=== PATIENT | female | born 1980 | race Caucasian/White ===

== ENCOUNTER 2021-01-09 10:29 | Outpatient (REF) | payer MEDICARE, MEDICAID, SELFPAY ==
--- NOTE | ~2021-01-09 | XR_ITS ---
EXAMINATION: XR CHEST CLINICAL INFORMATION: Chest pain. COMPARISON: Chest 05/25/2019 TECHNIQUE: 2 views of chest FINDINGS: The lungs are well-expanded and clear of acute process. The heart size and pulmonary vascularity is normal. There is mild dextroscoliosis of dorsal spine. No lytic process seen. XR/XR chest 2V IMPRESSION: Unremarkable chest exam.
[2021-01-09 13:08] LABS: Influenza A PCR NEGATIVE (Negative); Influenza B PCR NEGATIVE (Negative); Resp Syncy Virus RNA Qual PCR NEGATIVE (Negative); SARS COV2 PCR INHOUSE NEGATIVE (Negative)
== END 2021-01-09 10:30 | disposition home or self-care (01) ==
LOC: HO.LAB 10:29
PROVIDERS: Visit Provider Nurse Practitioner Family
DX: R05 Cough (principal); R07.89 Other chest pain; F17.200 Nicotine dependence, unspecified, uncomplicated; Z20.822 Contact with and (suspected) exposure to COVID-19
CPT/HCPCS: 0241U; 36415; 71046

== ENCOUNTER 2021-01-09 10:32 | Outpatient (REF) | payer MEDICARE, MEDICAID, SELFPAY ==
[2021-01-09 13:50] LABS: MANUAL DIFF FLAG NO
[2021-01-09 13:53] LABS: Basophils Percent Auto 0.3 % (0-2); Eosinophils Absolute Auto 0.1 X10*3/uL (0.0-0.4); Eosinophils Percent Auto 0.9 % (0-4); Hematocrit 42.1 % (37-47); Hemoglobin 13.8 g/dl (12.0-16.0); Imm Gran Abs Auto 0.04 X10*3/uL (0.00-0.03); Imm Gran Pct Auto 0.4 % (0.0-0.4); Lymphocytes Absolute Auto 2.3 X10*3/uL (1.2-4.9); Lymphocytes Percent Auto 25.7 % (20-40); Mean Corpuscular HGB Conc 32.8 g/dl (31.0-35.0); Mean Corpuscular Hemoglobin 30.1 pg (27.0-33.0); Mean Corpuscular Volume 91.9 fL (80-98); Monocytes Absolute Auto 0.4 X10*3/uL (0.1-1.2); Monocytes Percent Auto 4.7 % (2-11); Neutrophils Absolute Auto 6.1 X10*3/uL (2.0-8.3); Platelet Count 157 X10*3/uL (160-400); Red Blood Count 4.58 X10*6/uL (4.20-5.50); Red Cell Distribution Width 12.6 % (11.0-16.0); White Blood Count 8.9 X10*3/uL (4.8-10.8)
[2021-01-09 14:18] LABS: Alanine Aminotransferase 44 U/L (0-31); Albumin Level 4.5 g/dL (3.5-5.0); Alkaline Phosphatase 88 U/L (39-117); Anion Gap 14 (12-20); Aspartate Amino Transferase 26 U/L (5-31); Bilirubin Total 0.5 mg/dL (0.0-1.0); Blood Urea Nitrogen 11 mg/dL (9-16); Calcium 9.3 mg/dL (8.4-10.2); Carbon Dioxide 28 mmol/L (22-29); Chloride 101 mmol/L (96-108); Estimated Glomerular Filt Rate > 60; Glucose Random 89 mg/dL (60-115); Potassium 4.1 mmol/L (3.3-5.1); Sodium 139 mmol/L (135-145); Total Protein 7.3 g/dL (6.5-8.0)
[2021-01-10 12:31] LABS: LDL Cholesterol Direct 97 mg/dL (<100)
== END 2021-01-09 10:33 | disposition home or self-care (01) ==
LOC: HO.HMGCLDS 10:32
PROVIDERS: PCP Internal Medicine; Visit Provider Nurse Practitioner Family
DX: E66.01 Morbid (severe) obesity due to excess calories (principal); I10 Essential (primary) hypertension; R05 Cough; Z20.822 Contact with and (suspected) exposure to COVID-19
CPT/HCPCS: 36415; 80053; 83721; 85025

== ENCOUNTER 2021-05-11 10:20 | Outpatient (REF) | payer MEDICARE, MEDICAID, SELFPAY ==
--- NOTE | ~2021-05-11 | XR_ITS ---
EXAMINATION: XR CHEST CLINICAL INFORMATION: Covid 19 COMPARISON: Chest radiograph from 01/09/2019 TECHNIQUE: 2 views of the chest were obtained. FINDINGS: No focal consolidation. No pneumothorax. Trachea is midline. Cardiomediastinal silhouette is not enlarged. No large pleural effusions. Mild dextrocurvature of the thoracic spine with multilevel degenerative changes. Soft tissues are unremarkable. XR/XR chest 2V IMPRESSION: No acute cardiopulmonary process.
== END 2021-05-11 10:21 | disposition home or self-care (01) ==
LOC: HO.HMGCX 10:20
PROVIDERS: PCP Internal Medicine; Visit Provider Internal Medicine
DX: Z13.89 Encounter for screening for other disorder (principal)
CPT/HCPCS: 71046

== ENCOUNTER 2021-06-26 10:35 | Outpatient (REF) | payer MEDICARE, MEDICAID, SELFPAY ==
[2021-06-26 11:25] LABS: MANUAL DIFF FLAG NO
[2021-06-26 11:32] LABS: Basophils Percent Auto 0.4 % (0-2); Eosinophils Absolute Auto 0.1 X10*3/uL (0.0-0.4); Eosinophils Percent Auto 1.4 % (0-4); Hematocrit 41.7 % (37.0-47.0); Hemoglobin 14.1 g/dl (12.0-16.0); Imm Gran Abs Auto 0.03 X10*3/uL (0.00-0.03); Imm Gran Pct Auto 0.4 % (0.0-0.4); Lymphocytes Absolute Auto 2.6 X10*3/uL (1.2-4.9); Lymphocytes Percent Auto 33.7 % (20-40); Mean Corpuscular HGB Conc 33.8 g/dl (31.0-35.0); Mean Corpuscular Hemoglobin 30.6 pg (27.0-33.0); Mean Corpuscular Volume 90.5 fL (80.0-98.0); Mean Platelet Volume 11.9 fL (9.4-12.3); Monocytes Absolute Auto 0.5 X10*3/uL (0.1-1.2); Monocytes Percent Auto 6.3 % (2-11); Neutrophils Percent Auto 57.8 % (45-73); Platelet Count 160 X10*3/uL (160-400); Red Blood Count 4.61 X10*6/uL (4.20-5.50); White Blood Count 7.6 X10*3/uL (4.8-10.8)
[2021-06-26 12:29] LABS: Alanine Aminotransferase 47 U/L (0-31); Albumin Level 4.6 g/dL (3.5-5.0); Alkaline Phosphatase 84 U/L (39-117); Anion Gap 13 (12-20); Aspartate Amino Transferase 32 U/L (5-31); Bilirubin Total 0.4 mg/dL (0.0-1.0); Blood Urea Nitrogen 13 mg/dL (9-16); Calcium 9.5 mg/dL (8.4-10.2); Carbon Dioxide 28 mmol/L (22-29); Chloride 102 mmol/L (96-108); Cholesterol 170 mg/dL; Estimated Glomerular Filt Rate > 60; Glucose Random 89 mg/dL (60-115); HDL Cholesterol 42 mg/dL; LDL Cholesterol Calculated 100 mg/dl; Potassium 4.2 mmol/L (3.3-5.1); Sodium 139 mmol/L (135-145); Total Protein 7.2 g/dL (6.5-8.0); Triglycerides 142 mg/dL
== END 2021-06-26 10:36 | disposition home or self-care (01) ==
LOC: HO.HMGCLDS 10:35
PROVIDERS: PCP Internal Medicine; Visit Provider Internal Medicine
DX: I10 Essential (primary) hypertension (principal); E66.01 Morbid (severe) obesity due to excess calories; U07.1 COVID-19; J12.82 Pneumonia due to coronavirus disease 2019; F17.200 Nicotine dependence, unspecified, uncomplicated
CPT/HCPCS: 36415; 80053; 80061; 85025

== ENCOUNTER 2021-12-07 13:38 | Outpatient (REF) | payer MEDICARE, MEDICAID, SELFPAY ==
--- NOTE | ~2021-12-07 | XR_ITS ---
EXAMINATION: XR CHEST CLINICAL INFORMATION: Other specified signs and symptoms COMPARISON: Chest x-ray 05/11/2021 TECHNIQUE: 2 views of the chest were obtained. FINDINGS: Normal heart size. Adequate expansion of the lungs. No focal consolidation. No pleural effusion or pneumothorax. No acute osseous abnormality. Multilevel degenerative changes of the spine. XR/XR chest 2V IMPRESSION: No acute disease within the chest. No focal consolidation.
== END 2021-12-07 13:39 | disposition home or self-care (01) ==
LOC: HO.HMGCX 13:38
PROVIDERS: Visit Provider Internal Medicine
DX: R09.89 Other specified symptoms and signs involving the circulatory and respiratory systems (principal)
CPT/HCPCS: 71046

== ENCOUNTER 2022-01-10 10:45 | Outpatient (REF) | payer MEDICARE, MEDICAID, SELFPAY ==
[2022-01-10 14:29] LABS: B Type Natriuretic Peptide < 10 pg/mL (<100)
[2022-01-10 14:37] LABS: D Dimer High Sensitivity < 150 NG/ML
[2022-01-10 14:43] LABS: Erythrocyte Sedimentation Rate 10 MM/HR (0-20)
[2022-01-12 14:46] LABS: IgA 209 mg/dL (47-310); IgG 982 mg/dL (600-1640); IgM 206 mg/dL (50-300)
[2022-02-04 08:40] LABS: SARS COV2 IgG Negative
== END 2022-01-10 10:46 | disposition home or self-care (01) ==
LOC: HO.LAB 10:45
PROVIDERS: PCP Internal Medicine; Visit Provider Hospitalist
DX: J45.50 Severe persistent asthma, uncomplicated (principal); U09.9 Post COVID-19 condition, unspecified; J42 Unspecified chronic bronchitis; F17.200 Nicotine dependence, unspecified, uncomplicated; Z01.84 Encounter for antibody response examination
CPT/HCPCS: 36415; 82784; 82785; 83880; 85379; 85652; 86003; 86769; 99202

== ENCOUNTER 2022-02-06 10:07 | Outpatient (REF) | payer MEDICARE, MEDICAID, SELFPAY ==
--- NOTE | ~2022-02-06 | XR_ITS ---
EXAMINATION: XR CHEST CLINICAL INFORMATION: On suspected chronic bronchitis COMPARISON: Chest 12/07/2021 TECHNIQUE: 2 views of the chest were obtained. FINDINGS: The lungs are well-expanded and clear. There is no pleural effusion. The heart size and pulmonary vascularity is normal. There is mild spondylosis dorsal spine. XR/XR chest 2V IMPRESSION: No acute cardiopulmonary process seen.
== END 2022-02-06 10:08 | disposition home or self-care (01) ==
LOC: HO.XRAY 10:07
PROVIDERS: PCP Internal Medicine; Visit Provider Hospitalist
DX: J45.50 Severe persistent asthma, uncomplicated (principal); J42 Unspecified chronic bronchitis; U09.9 Post COVID-19 condition, unspecified; F17.200 Nicotine dependence, unspecified, uncomplicated; Z71.6 Tobacco abuse counseling
CPT/HCPCS: 71046; 99212

== ENCOUNTER 2022-03-25 09:36 | Outpatient (REF) | payer MEDICARE, MEDICAID, SELFPAY ==
[2022-03-25 11:28] LABS: MANUAL DIFF FLAG NO
[2022-03-25 11:35] LABS: Basophils Percent Auto 0.3 % (0-2); Eosinophils Absolute Auto 0.1 X10*3/uL (0.0-0.4); Eosinophils Percent Auto 1.4 % (0-4); Hematocrit 42.4 % (37.0-47.0); Hemoglobin 14.2 g/dl (12.0-16.0); Imm Gran Abs Auto 0.04 X10*3/uL (0.00-0.03); Imm Gran Pct Auto 0.5 % (0.0-0.4); Lymphocytes Absolute Auto 2.5 X10*3/uL (1.2-4.9); Lymphocytes Percent Auto 30.9 % (20-40); Mean Corpuscular HGB Conc 33.5 g/dl (31.0-35.0); Mean Corpuscular Hemoglobin 30.7 pg (27.0-33.0); Mean Corpuscular Volume 91.8 fL (80.0-98.0); Mean Platelet Volume 11.7 fL (9.4-12.3); Monocytes Absolute Auto 0.4 X10*3/uL (0.1-1.2); Monocytes Percent Auto 5.3 % (2-11); Neutrophils Absolute Auto 4.9 x10*3/uL (2.0-8.3); Neutrophils Percent Auto 61.6 % (45-73); Platelet Count 165 X10*3/uL (160-400); Red Blood Count 4.62 X10*6/uL (4.20-5.50); Red Cell Distribution Width 12.5 % (11.0-16.0); White Blood Count 7.9 X10*3/uL (4.8-10.8)
[2022-03-25 11:37] LABS: Hematocrit 42.6 % (37.0-47.0); Hemoglobin 14.2 g/dl (12.0-16.0); Mean Corpuscular HGB Conc 33.3 g/dl (31.0-35.0); Mean Corpuscular Hemoglobin 30.5 pg (27.0-33.0); Mean Corpuscular Volume 91.4 fL (80.0-98.0); Mean Platelet Volume 12.3 fL (9.4-12.3); Platelet Count 151 X10*3/uL (160-400); Red Blood Count 4.66 X10*6/uL (4.20-5.50); Red Cell Distribution Width 12.3 % (11.0-16.0); White Blood Count 7.8 X10*3/uL (4.8-10.8)
[2022-03-25 12:12] LABS: Alanine Aminotransferase 71 U/L (0-31); Albumin Level 4.6 g/dL (3.5-5.0); Alkaline Phosphatase 84 U/L (39-117); Anion Gap 14 (12-20); Aspartate Amino Transferase 42 U/L (5-31); Bilirubin Total 0.5 mg/dL (0.0-1.0); Blood Urea Nitrogen 12 mg/dL (9-16); Calcium 9.4 mg/dL (8.4-10.2); Carbon Dioxide 27 mmol/L (22-29); Chloride 102 mmol/L (96-108); Cholesterol 185 mg/dL; Estimated Glomerular Filt Rate > 60; Glucose Fasting 99 mg/dL (60-99); HDL Cholesterol 45 mg/dL; LDL Cholesterol Calculated 111 mg/dl; Potassium 4.2 mmol/L (3.3-5.1); Sodium 139 mmol/L (135-145); Total Protein 7.4 g/dL (6.5-8.0); Triglycerides 149 mg/dL
[2022-03-25 12:14] LABS: Ferritin 369 ng/mL (10-122); Insulin 27 uU/mL (2-29); Vitamin D 25-OH Total 28.5 ng/mL (>30)
[2022-03-25 12:19] LABS: Vitamin B12 518 pg/mL (200-900)
[2022-03-25 12:26] LABS: Estimated Average Glucose 111 mg/dL; Hemoglobin A1c % 5.5 %
[2022-03-25 12:27] LABS: Alanine Aminotransferase 70 U/L (0-31); Albumin Level 4.6 g/dL (3.5-5.0); Alkaline Phosphatase 84 U/L (39-117); Anion Gap 13 (12-20); Aspartate Amino Transferase 42 U/L (5-31); Bilirubin Total 0.5 mg/dL (0.0-1.0); Blood Urea Nitrogen 13 mg/dL (9-16); Calcium 9.4 mg/dL (8.4-10.2); Carbon Dioxide 28 mmol/L (22-29); Chloride 102 mmol/L (96-108); Estimated Glomerular Filt Rate > 60; Glucose Random 99 mg/dL (60-115); Iron 137 mcg/dL (30-160); Percent Iron Saturation 43 % (15-50); Potassium 4.1 mmol/L (3.3-5.1); Sodium 139 mmol/L (135-145); Total Iron Binding Capacity 320 mcg/dL (228-428); Total Protein 7.4 g/dL (6.5-8.0); Unsaturated Iron Binding 183 ug/dL
[2022-03-30 19:46] LABS: Testosterone, Free 9.3 pg/mL (0.1-6.4); Testosterone, Total 61 ng/dL (2-45)
== END 2022-03-25 09:37 | disposition home or self-care (01) ==
LOC: HO.HMGCLDS 09:36
PROVIDERS: PCP Internal Medicine; Visit Provider Internal Medicine
DX: Z00.01 Encounter for general adult medical examination with abnormal findings (principal); E66.01 Morbid (severe) obesity due to excess calories; U09.9 Post COVID-19 condition, unspecified; F33.2 Major depressive disorder, recurrent severe without psychotic features; F17.200 Nicotine dependence, unspecified, uncomplicated
CPT/HCPCS: 36415; 80053; 80061; 82306; 82607; 82728; 83036; 83525; 83540; 84402; 84403; 84443; 85025; 85027

== ENCOUNTER 2022-05-22 10:41 | Outpatient (REF) | payer MEDICARE, MEDICAID, SELFPAY ==
[2022-05-22 14:52] LABS: Alanine Aminotransferase 59 U/L (0-31); Albumin Level 4.6 g/dL (3.5-5.0); Alkaline Phosphatase 89 U/L (39-117); Anion Gap 15 (12-20); Aspartate Amino Transferase 33 U/L (5-31); Bilirubin Total < 0.2 mg/dL (0.0-1.0); Blood Urea Nitrogen 15 mg/dL (9-16); Calcium 9.3 mg/dL (8.4-10.2); Carbon Dioxide 26 mmol/L (22-29); Chloride 101 mmol/L (96-108); Estimated Glomerular Filt Rate > 60; Glucose Random 77 mg/dL (60-115); Sodium 138 mmol/L (135-145); Total Protein 7.2 g/dL (6.5-8.0)
[2022-05-22 15:04] LABS: Ferritin 238 ng/mL (10-122)
== END 2022-05-22 10:42 | disposition home or self-care (01) ==
LOC: HO.HMGCLDS 10:41
PROVIDERS: PCP Internal Medicine; Visit Provider Internal Medicine
DX: R79.89 Other specified abnormal findings of blood chemistry (principal)
CPT/HCPCS: 36415; 80053; 82728

== ENCOUNTER 2022-06-06 13:55 | Outpatient (REF) | payer MEDICARE, MEDICAID, SELFPAY ==
--- NOTE | ~2022-06-06 | XR_ITS ---
EXAMINATION: XR CHEST CLINICAL INFORMATION: Chest pain COMPARISON: Chest 02/06/2022 TECHNIQUE: 2 views of the chest were obtained. FINDINGS: The lungs are well expanded with small density seen in the lingular segment overlying the left ninth posterior rib question small focal infiltrate, nodule versus artifact. Rest lungs are clear. The heart size and pulmonary vascularity is normal. No gross bony abnormality seen except for mild dorsal spondylosis spondylosis. XR/XR chest 2V IMPRESSION: Small focal density in the lingula question artifact, infiltrate versus nodule. It is new compared to 02/06/2022.
== END 2022-06-06 13:56 | disposition home or self-care (01) ==
LOC: HO.XRAY 13:55
PROVIDERS: PCP Internal Medicine; Visit Provider Hospitalist
DX: J45.50 Severe persistent asthma, uncomplicated (principal); J42 Unspecified chronic bronchitis; R09.1 Pleurisy; J18.0 Bronchopneumonia, unspecified organism; R07.9 Chest pain, unspecified; U09.9 Post COVID-19 condition, unspecified; F17.210 Nicotine dependence, cigarettes, uncomplicated
CPT/HCPCS: 71046; 99212

== ENCOUNTER → 2022-07-24 10:01 | Outpatient (BNVA) | payer MEDICARE, MEDICAID, SELFPAY | PROVIDERS: PCP Internal Medicine; Visit Provider Hospitalist | DX: J45.50 Severe persistent asthma, uncomplicated (principal); J42 Unspecified chronic bronchitis; U09.9 Post COVID-19 condition, unspecified; R93.89 Abnormal findings on diagnostic imaging of other specified body structures; F17.210 Nicotine dependence, cigarettes, uncomplicated | CPT/HCPCS: 99212 ==

== ENCOUNTER 2022-08-22 12:43 | Outpatient (REF) | payer MEDICARE, MEDICAID, SELFPAY ==
--- NOTE | ~2022-08-22 | CT_ITS ---
EXAMINATION: CT CHEST WITHOUT CONTRAST CLINICAL INFORMATION: Chest pain. COMPARISON: None. TECHNIQUE: Multidetector volumetric CT imaging of the chest was done. Axial MIP volume rendering provided. Sagittal and coronal reformatted images were obtained. This CT examination was performed using dose optimization techniques as appropriate, variously including the following: *Automated exposure control *Adjustment of mA and/or kV according to patient size (this includes techniques or standardized protocols for targeted exams where dose is matched to indication/reason for exam; i.e. extremities or head) *Use of iterative reconstruction technique DLP: 726 mGy-cm FINDINGS: EDUCATION CONSULTANT: Unremarkable. LUNGS: The lungs are clear with no evidence of inflammation or nodules. MEDIASTINUM: The mediastinum is unremarkable. Small right anterior paracardiac lymph nodes are present. CORONARY ARTERY CALCIFICATION: None visualized on this study. PLEURA: There is no pleural effusion. No pleural mass or thickening. AXILLA: No lymphadenopathy. UPPER ABDOMEN: Unremarkable. OSSEOUS STRUCTURES: Unremarkable. CT/CT chest wo IV con IMPRESSION: Unremarkable examination. A cause for the patient's chest pain has not been found. Fleischner guidelines were followed.
== END 2022-08-22 12:44 | disposition home or self-care (01) ==
LOC: HO.CT 12:43
PROVIDERS: PCP Internal Medicine; Visit Provider Hospitalist
DX: R07.9 Chest pain, unspecified (principal)
CPT/HCPCS: 71250

== ENCOUNTER 2022-10-08 11:55 | Outpatient (REF) | payer MEDICARE, MEDICAID, SELFPAY ==
[2022-10-08 14:15] LABS: MANUAL DIFF FLAG NO
[2022-10-08 14:21] LABS: Basophils Percent Auto 0.3 % (0-2); Eosinophils Absolute Auto 0.1 X10*3/uL (0.0-0.4); Eosinophils Percent Auto 0.6 % (0-4); Hematocrit 44.3 % (37.0-47.0); Hemoglobin 14.8 g/dl (12.0-16.0); Imm Gran Abs Auto 0.02 X10*3/uL (0.00-0.03); Imm Gran Pct Auto 0.2 % (0.0-0.4); Lymphocytes Absolute Auto 2.6 X10*3/uL (1.2-4.9); Mean Corpuscular HGB Conc 33.4 g/dl (31.0-35.0); Mean Corpuscular Hemoglobin 29.9 pg (27.0-33.0); Mean Corpuscular Volume 89.5 fL (80.0-98.0); Mean Platelet Volume 12.1 fL (9.4-12.3); Monocytes Absolute Auto 0.5 X10*3/uL (0.1-1.2); Monocytes Percent Auto 5.3 % (2-11); Neutrophils Absolute Auto 6.5 x10*3/uL (2.0-8.3); Neutrophils Percent Auto 66.6 % (45-73); Platelet Count 171 X10*3/uL (160-400); Red Blood Count 4.95 X10*6/uL (4.20-5.50); Red Cell Distribution Width 11.9 % (11.0-16.0); White Blood Count 9.7 X10*3/uL (4.8-10.8)
[2022-10-08 14:46] LABS: Alanine Aminotransferase 24 U/L (0-31); Albumin Level 4.5 g/dL (3.5-5.0); Alkaline Phosphatase 88 U/L (39-117); Anion Gap 15 (12-20); Aspartate Amino Transferase 19 U/L (5-31); Bilirubin Total 0.5 mg/dL (0.0-1.0); Blood Urea Nitrogen 11 mg/dL (9-16); Calcium 9.7 mg/dL (8.4-10.2); Carbon Dioxide 28 mmol/L (22-29); Chloride 101 mmol/L (96-108); Estimated Glomerular Filt Rate > 60; Glucose Random 84 mg/dL (60-115); Sodium 140 mmol/L (135-145); Total Protein 7.1 g/dL (6.5-8.0)
[2022-10-08 15:02] LABS: Ferritin 203 ng/mL (10-250)
== END 2022-10-08 11:56 | disposition home or self-care (01) ==
LOC: HO.HMGCLDS 11:55
PROVIDERS: PCP Internal Medicine; Visit Provider Internal Medicine
DX: F33.2 Major depressive disorder, recurrent severe without psychotic features (principal); G43.909 Migraine, unspecified, not intractable, without status migrainosus; R79.89 Other specified abnormal findings of blood chemistry; I10 Essential (primary) hypertension
CPT/HCPCS: 36415; 80053; 82728; 85025

== ENCOUNTER 2022-11-15 09:46 | Outpatient (REF) | payer MEDICARE, MEDICAID, SELFPAY ==
--- NOTE | ~2022-11-15 | XR_ITS ---
EXAMINATION: XR CHEST CLINICAL INFORMATION: Pleurisy. COMPARISON: Chest radiographs dated 06/06/2022. TECHNIQUE: 2 views of the chest were obtained. FINDINGS: No significant abnormality is noted involving the heart, lungs, mediastinum, bony thorax or soft tissues. XR/XR chest 2V IMPRESSION: No acute cardiopulmonary process.
== END 2022-11-15 09:47 | disposition home or self-care (01) ==
LOC: HO.HMGCX 09:46
PROVIDERS: PCP Internal Medicine; Visit Provider Hospitalist
DX: R09.1 Pleurisy (principal)
CPT/HCPCS: 71046

== ENCOUNTER → 2022-11-19 09:56 | Outpatient (BNVA) | payer MEDICARE, MEDICAID, SELFPAY | PROVIDERS: PCP Internal Medicine; Visit Provider Hospitalist | DX: J45.50 Severe persistent asthma, uncomplicated (principal); J42 Unspecified chronic bronchitis; R91.1 Solitary pulmonary nodule; F17.210 Nicotine dependence, cigarettes, uncomplicated | CPT/HCPCS: 99212 ==

== ENCOUNTER → 2022-12-20 09:54 | Outpatient (BNVA) | payer MEDICARE, MEDICAID, SELFPAY | PROVIDERS: PCP Internal Medicine; Visit Provider Nurse Practitioner Family | DX: G43.009 Migraine without aura, not intractable, without status migrainosus (principal); G43.829 Menstrual migraine, not intractable, without status migrainosus; G24.01 Drug induced subacute dyskinesia | CPT/HCPCS: 99202 ==

== ENCOUNTER 2023-04-15 13:38 | Outpatient (REF) | payer MEDICARE, MEDICAID, SELFPAY ==
--- NOTE | ~2023-04-15 | XR_ITS ---
EXAMINATION: XR CHEST CLINICAL INFORMATION: Pleurisy COMPARISON: 11/15/2022 TECHNIQUE: 2 views of the chest were obtained. FINDINGS: There is no gross pneumothorax. Heart size normal. No focal consolidation to suggest pneumonia. No pleural effusion. Degenerative changes in the thoracic spine. XR/XR chest 2V IMPRESSION: No focal consolidation to suggest pneumonia.
== END 2023-04-15 13:39 | disposition home or self-care (01) ==
LOC: HO.XRAY 13:38
PROVIDERS: PCP Internal Medicine; Visit Provider Nurse Practitioner Family
DX: R09.1 Pleurisy (principal); J45.50 Severe persistent asthma, uncomplicated; J42 Unspecified chronic bronchitis; R07.81 Pleurodynia; R91.1 Solitary pulmonary nodule
CPT/HCPCS: 71046; 99212

== ENCOUNTER 2023-04-15 13:38 | Outpatient (AMB) | payer MEDICARE, MEDICAID, SELFPAY ==
[2023-04-15 13:41] VITALS: BP 134/80; PULSE 95; O2SAT 99; BMI 39.7
--- NOTE | 2023-04-15 13:41 | MHC.OFFVIS ---
Intake Vital Signs 04/15/23 13:41 Height 5 ft 4 in Weight 231 lb 7.766 oz BMI 39.7 BP 134/80 Blood Pressure Location Lt brachial Position Sitting Pulse 95 Pulse Source Pulse Oximeter Pulse Oximetry (%) 99 Oxygen Delivery Method Room Air Intake Visit Reasons: cough and wheeze Fairing Worker Required: No Accompanied by: Self / Same As Patient Allergies lamotrigine [From LAMICTAL] Allergy (Intermediate, Verified 04/15/23 13:47) RASH Penicillins [PENICILLINS] Allergy (Intermediate, Verified 04/15/23 13:47) RASH prednisone [PREDNISONE] Allergy (Intermediate, Verified 04/15/23 13:47) AGITATION, anger, agitation, agitated mental/emotional status penicillin V Allergy (Unknown, Verified 04/15/23 13:47) Agitated Environmental [hx allergy shot Allergy (Unknown, Uncoded 04/15/23 13:47) Unknown Medication List - Last Reconciled 04/15/23 by Annalee Mireles LPN albuterol sulfate 90 mcg/actuation 1 puff PO Q4H PRN 30 days albuterol sulfate 2.5 mg (3 mL) inhalation Q6H PRN amlodipine 2.5 mg PO DAILY 90 days aripiprazole 10 mg PO DAILY budesonide-formoterol 160-4.5 mcg/actuation (Symbicort) 2 puffs inhalation BID 30 days lpefoyehgs-nzuuezodkzpya-mzjk 50-325-40 mg 1 cap PO Q4H PRN 30 days cetirizine 10 mg PO DAILY PRN docusate sodium (DOK) 100 mg PO BID erenumab-aooe (Aimovig Autoinjector) 140 mg subcut ONCE 30 days hydrochlorothiazide 25 mg PO QAM 90 days lorazepam 0.5 mg PO BEDTIME PRN magnesium oxide 400 mg PO BEDTIME 30 days nebulizers As directed ondansetron HCl 4 mg PO ONCE PRN 30 days perphenazine 8 mg PO TID riboflavin (vitamin B2) 400 mg PO DAILY 30 days rizatriptan 5 - 10 mg (0.5 - 1 x 10 mg) PO Q2H PRN 30 days semaglutide (Ozempic) mg subcut HPI cough and wheeze HPI Details Suzie is a pleasant 42 year old, current 1/2 ppd smoker with 10 pack year history, followed for asthma and chronic bronchitis. At baseline, she is well controlled on symbicort, albuterol MDI/neb, and zyrtec. Today she presents for an acute visit. She reports symptoms of nasal congestion that started about a week and a half ago and now feels it has moved into her chest with a productive cough and yellow sputum as well as intermittent wheezing. She also reports pleuritic pain. She denies any fever but reports intermittent chills. She also reports her daughter with similar symptoms. [facility] Medical History Abnormal chest x-ray Asthma Chest pain Chronic bronchitis Essential hypertension Morbid obesity Pulmonary nodule Surgical History History of section Family History Father HTN (hypertension) Hypercholesteremia Mother Migraines Brother No problems noted. Sister No problems noted. Daughter No problems noted. Paternal Grandmother Migraines Daughter Kawasaki disease Daughter Autism spectrum disorder Other Mental health disorder Social History (Updated 04/15/23 @ 13:50 by Annalee Mireles LPN) Housing: House Alcohol intake: never Patient Tobacco Use Status: Current everyday Tobacco user Tobacco use type: Cigarette Cigarettes Per Day: 10 Years Smoked: 20 Smoked in Last 30 Days: No e-Cigarette/Vaping Use: Never Used service: No Current occupational status: unemployed Cognitive needs: No Hearing needs: No Vision needs: No Review of Systems Const Denies chills, Denies excessive sweating, Denies fever(s), Denies headache(s) and Denies night sweats Eyes Denies dry eyes, Denies irritation and Denies itchy eyes ENT Reports Normal hearing present, Denies headache(s), Denies nasal congestion, Denies nasal discharge, Denies post nasal drip and Denies sore throat Card Denies chest pain, Denies chest pain at rest, Denies chest pain with activity, Denies claudication, Denies leg edema, Denies dyspnea, Denies dyspnea on exertion, Denies orthopnea and Denies paroxysmal nocturnal dyspnea Resp Denies excessive phlegm production, Denies pain on inspiration, Denies pain with cough, Denies dyspnea, Denies dyspnea on exertion, Denies stridor and Denies wheezing Musc Denies myalgias Neuro Reports Normal hearing present and Denies headache(s) Endo Denies excessive sweating Nitin/Lymph Denies lymphadenopathy Aller/Immun Denies itchy eyes, Denies seasonal rhinorrhea and Denies wheezing Physical Exam Vital Signs: Last Vital Signs Pulse 95 04/15/23 13:41 BP 134/80 04/15/23 13:41 Pulse Ox 99 04/15/23 13:41 Oxygen Delivery Method Room Air 04/15/23 13:41 BMI result Body Mass Index 39.7 Const General: cooperative, healthy appearing, comfortable, no acute distress, well developed and alert Nutritional Appearance: obese Orientation/consciousness: patient oriented x3 Limitations: no limitations HEENT Head: Yes normal to inspection, Yes normocephalic and Yes atraumatic Ears: hearing grossly normal bilaterally and external ears normal Eyes General: appearance normal, both eyes and all related structures Eyelids: Yes eyelids normal Sclerae: sclerae normal EOM: EOMs intact bilaterally Neck Neck: Yes normal visual inspection and Yes no lymphadenopathy Lymphatic: no lymphadenopathy noted Chest Chest palpation & inspection: normal inspection of the chest Resp Effort & Inspection: normal respiratory effort, able to speak in complete sentences, no audible wheezes, no cough, no stridor, not tachypneic, no tripod positioning and no use of accessory muscles Auscultation: clear to auscultation bilaterally Cardio Jugular venous distension: no JVD Rate: regular rate Rhythm: regular rhythm Skin Other: warm, dry General skin exam: no rashes or lesions noted Neuro General: patient oriented x3 Cranial nerves: Yes Normal hearing present Cognition (Neuro): normal cognition Gait exam (Neuro): Normal gait present Extrem General: Yes normal to inspection, Yes capillary refill normal, Yes no clubbing, cyanosis or edema and Yes no pedal edema Psych Appearance: grossly normal and well kempt Speech and movement: Normal speech and movement present and Clear speech present Affect: normal affect Attitude: cooperative Thought process: Normal thought process present Thought content: Normal thought content present Insight: Good insight present (Psych) Judgement: Good judgement present (Psych) Assessment & Plan Assessment & Plan (1) Asthma: Code(s): J45.909 - Unspecified asthma, uncomplicated Qualifiers: Asthma complication type: uncomplicated Asthma persistence: persistent Asthma severity: severe Qualified Code(s): J45.50 - Severe persistent asthma, uncomplicated (2) Chronic bronchitis: Code(s): J42 - Unspecified chronic bronchitis (3) Pleuritic pain: Code(s): R07.81 - Pleurodynia (4) Pulmonary nodule: Code(s): R91.1 - Solitary pulmonary nodule Plan Will treat bronchitic symptoms with azithromycin. Patient aware if symptoms do not improve to call the office. Will send for CXR to further evaluate her pleuritic pain. She also mentioned that she is supposed to be due for a repeat chest CT prior to her appointment with Dr. Ramirez in April to monitor a 6 mm nodule in the right lower lobe that was seen on her scan 6 months ago. Will enter this. All questions were answered and patient is in agreement of plan. Orders: Orders XR chest 2V 04/15/23 R09.1 - Pleurisy CT chest wo IV con Today R91.1 - Solitary pulmonary nodule Medications: New azithromycin For 250 mg dose pack: take 500 mg today (day 1), then 250 mg for 4 days (days 2-5) PO 6 tabs 0RF Changed From albuterol sulfate 90 mcg/actuation 1 puff PO Q4H 30 days PRN 8.5 grams 1RF bronchospasm To albuterol sulfate 90 mcg/actuation 1 puff PO Q4-6H PRN 1 ea 3RF bronchospasm 30 days Refilled budesonide-formoterol 160-4.5 mcg/actuation (Symbicort) 2 puffs inhalation BID 10.2 grams 11RF 30 days J44.9 - Chronic obstructive pulmonary disease, unspecified Quality Reporting (2019) Adult ([facility] ) Smoking risk assessment performed?: Yes Patient Tobacco Use Status: Current everyday Tobacco user Coding Level of Care Code Est Pt Level 4 (90423) Diagnoses Asthma J45.50 Asthma complication type: uncomplicated Asthma persistence: persistent Asthma severity: severe Chronic bronchitis J42 Pleuritic pain R07.81 Pulmonary nodule R91.1
== END 2023-04-15 14:32 | disposition home or self-care (01) ==
PROVIDERS: PCP Internal Medicine; Visit Provider Nurse Practitioner Family
DX: J45.50 Severe persistent asthma, uncomplicated (principal); J42 Unspecified chronic bronchitis; R07.81 Pleurodynia; R91.1 Solitary pulmonary nodule
CPT/HCPCS: 99214

== ENCOUNTER 2023-05-15 10:02 | Outpatient (REF) | payer MEDICARE, MEDICAID, SELFPAY ==
--- NOTE | ~2023-05-15 | CT_ITS ---
EXAMINATION: CT CHEST WITHOUT CONTRAST CLINICAL INFORMATION: Solitary pulmonary nodule COMPARISON: 08/22/2022 TECHNIQUE: Multidetector volumetric CT imaging of the chest was done. Axial MIP volume rendering provided. Sagittal and coronal reformatted images were obtained. This CT examination was performed using dose optimization techniques as appropriate, variously including the following: *Automated exposure control *Adjustment of mA and/or kV according to patient size (this includes techniques or standardized protocols for targeted exams where dose is matched to indication/reason for exam; i.e. extremities or head) *Use of iterative reconstruction technique DLP: 236 mGy-cm FINDINGS: COMMISSIONING AGENT: Lingular atelectasis. LUNGS: Trachea and bronchi are patent. Lingular atelectasis. No pulmonary nodules. MEDIASTINUM: Unremarkable thyroid. Amorphous anterior mediastinal soft tissue density is unchanged, likely residual thymus. No pathologic lymphadenopathy. Small pericardiac lymph nodes again seen. Repeat Nonenlarged heart. No pericardial effusion. Aorta is nonaneurysmal. Pulmonary arteries are not enlarged. CORONARY ARTERY CALCIFICATION: None visualized on this study. PLEURA: There is no pleural effusion. No pleural mass or thickening. AXILLA: Nonspecific lymph nodes. No pathologic lymphadenopathy. UPPER ABDOMEN: Unremarkable. OSSEOUS STRUCTURES: Mild degenerative changes. No suspicious osseous lesions. CT/CT chest wo IV con IMPRESSION: No lung nodules. Stable anterior mediastinal soft tissue density, question residual thymus. Fleischner guidelines were followed.
== END 2023-05-15 10:03 | disposition home or self-care (01) ==
LOC: HO.CT 10:02
PROVIDERS: PCP Internal Medicine; Visit Provider Nurse Practitioner Family
DX: R91.1 Solitary pulmonary nodule (principal)
CPT/HCPCS: 71250

== ENCOUNTER 2023-05-20 09:33 | Outpatient (AMB) | payer MEDICARE, MEDICAID, SELFPAY ==
[2023-05-20 09:33] VITALS: BMI 38.4
--- NOTE | 2023-05-20 09:33 | A.OFFVIS_ITS ---
Intake Vital Signs 05/20/23 09:33 Height 5 ft 4 in Weight 224 lb BMI 38.4 Intake Visit Reasons: Asthma Branch Associate Required: No Allergies lamotrigine [From LAMICTAL] Allergy (Intermediate, Verified 05/20/23 09:34) RASH Penicillins [PENICILLINS] Allergy (Intermediate, Verified 05/20/23 09:34) RASH prednisone [PREDNISONE] Allergy (Intermediate, Verified 05/20/23 09:34) AGITATION, anger, agitation, agitated mental/emotional status penicillin V Allergy (Unknown, Verified 05/20/23 09:34) Agitated Environmental [hx allergy shot Allergy (Unknown, Uncoded 05/20/23 09:34) Unknown HPI HPI Comments History of Present Illness Details The patient is a 42 y/o woman with tobacco dependency who developed Covid 19 back in March 2021. She was evaluated at [facility] ED and discharged. CXR apperantly with pneumonia. She was treated and released. Required multiple courses of antibiotics and steroids. Ever since then she has had multiple courses of antibiotics and prednisone. She had a repeat CXR in april with minimal basilar changes. She was again sick in November and went to an urgent care and was diagnosed with pneumonia. She was given a course of levaquin and steroids. She is better but still complaining of chest tightness and burning . She is still smoking but she would like to quit. 02/06/2022 the patient is here for a pulmonary follow-up visit. Overall she is feeling a little better. She did try the Symbicort inhaler. However, I gave her thrush therefore she stopped it. She has not required it. She also was prescribed the Wellbutrin for the smoking cessation and she could not tolerate that either. She is going to be looking into hypnosis another alternative to quitting. I believe this is a good option specially since she is motivated to quitting. The overall her breathing has improved. She did have a chest x-ray that we did review and compared to her previous in appears that she is clearing the left basilar opacity area which is reassuring. We also did review the blood work. One of the laboratories was the COVID-19 antibody which is no longer present. I did emphasize to the patient that she no longer has the antibodies low for she is at high risk for getting reinfected with COVID-19. Therefore, the patient is interested in getting vaccinated. She is going to make an appointment in order to do so at her earliest convenience. The patient is going to work on weight loss and exercise and smoking cessation. Will plan to follow-up sometime in the fall with pulmonary function studies. In meantime she can go back to using the Symbicort 1 puff as needed. She needs to make sure she rinses her mouth well ideally with mouthwash after using the Symbicort. 06/06/2022 The patient is here for a sic k visit. She was exposed to sick contacts (her children). She started developing a left sided pleuritic pain, mils to moderate in severity. Sometimes feels like icy hot . She has felt like this when she has developed pneumonia. She did have a CXR with interval progression of bilateral nodular opacities. She also has a cough, but non productive. She also had recent bloodwork demonstrating a left shift. 07/24/2022 the patient is here for a pulmonary follow-up visit. Overall the patient is doing better after the course of antibiotics and prednisone. She was again started to feel a chest discomfort and sometimes like a icy hot sensation. She was also having more coughing and more chest congestion of the time. Now she is better although she still complains of some shortness of breath. She still has a hacky cough. We did review her chest x-ray that she had back then. She did have any hazy opacity noted on the left mid lung zone. The patient does smoke cigarettes. Therefore, due to the fact that she continues to be symptomatic and she had an abnormal chest x-ray I will go ahead and order a CT scan of the chest to better assess density. In the meantime the patient will continue to work on smoking cessation. She does have a history of depression so therefore she was told not to use Chantix. She has had a bad reaction to Wellbutrin in the past. she will try nicotine replacement therapy. 11/19/2022 the patient is here for a pulm onary follow-up visit. Recently she called because she was having chest discomfort in addition to cough. She has it been exposed to sick contacts. She started antibiotics and she feels better. Her recent chest x-rays reassuring without any airspace disease. In addition to that, the patient did have a CT scan of the chest this year. Will personally reviewed it. The report mentioned no pulmonary nodules although I do see it nodular density in the right lower lobe measuring 6 mm in size. Patient is high risk because of his smoking history. Will plan to repeat the CT scan in 6 months. In the meantime she knows she needs to quit smoking. She is going to come up without quit contract and she is going to work on cutting down on her cigarettes now and then quit altogether on December 23. Will follow-up in [address] scan. She is going to continue with current respiratory therapy at this time. 05/20/2023 the patient is here for a tele health visit. She could not make the appointment since she has a sick contact sick family member. The patient overall has been doing better. Back in March she did have worsening productive cough in addition to chest discomfort. Typically how she gets before pneumonia. Therefore, the patient did have an appointment with our office for an urgent visit and she was started on medications for lower respiratory infection. Symptoms did improve. In addition to that we did review her CT scan that she had recently. It appeared that the right lower lobe pulmonary nodule has decreased in size. Otherwise do see bilateral pulmonary nodules some that may be new. Therefore, in view of her smoking history and high risk for cancer the patient should get a repeat CT scan in a year's time. She is also by trying to quit smoking although is very hard for her. She wants to try is more alert nicotine patch to see if she can tolerate it since she could not tolerate the 14 mg. The patient will continue with current respiratory therapy. Will plan to follow-up in 6 months or sooner if she develops any worsening symptoms. [facility] Medical History Abnormal chest x-ray Asthma Chest pain Chronic bronchitis Essential hypertension Morbid obesity Pulmonary nodule Surgical History History of section Family History Father HTN (hypertension) Hypercholesteremia Mother Migraines Brother No problems noted. Sister No problems noted. Daughter No problems noted. Paternal Grandmother Migraines Daughter Kawasaki disease Daughter Autism spectrum disorder Other Mental health disorder Social History (Updated 04/15/23 @ 13:50 by Annalee J Chi, [employer]) Housing: House Alcohol intake: never Patient Tobacco Use Status: Current everyday Tobacco user Tobacco use type: Cigarette Cigarettes Per Day: 10 Years Smoked: 20 e-Cigarette/Vaping Use: Never Used service: No Current occupational status: unemployed Cognitive needs: No Hearing needs: No Vision needs: No Review of Systems Const Denies chills and Denies fever(s) ENT Denies epistaxis and Denies nasal discharge Card Denies chest pain and Reports dyspnea on exertion Resp Denies chest congestion, Reports cough, Denies hemoptysis, Denies pain on inspiration, Denies pain with cough and Reports dyspnea on exertion GI Denies diarrhea and Denies nausea Skin/Breast Denies rash Neuro Reports no additional complaints, Denies Abnormal speech present and Denies Sensory deficit (Neuro) Psych Reports no additional complaints Endo Reports no additional complaints Physical Exam Vital Signs: BMI result Body Mass Index 38.4 Const General: comfortable Orientation/consciousness: patient oriented x3 Resp Effort & Inspection: normal respiratory effort and able to speak in complete sentences Neuro General: patient oriented x3 Speech: No Abnormal speech present Sensory Exam: No Sensory deficit (Neuro) Assessment & Plan Assessment & Plan (1) Asthma: Code(s): J45.909 - Unspecified asthma, uncomplicated Qualifiers: Asthma complication type: uncomplicated Asthma persistence: persistent Asthma severity: severe Qualified Code(s): J45.50 - Severe persistent asthma, uncomplicated (2) Chronic bronchitis: Code(s): J42 - Unspecified chronic bronchitis Qualifiers: Chronic bronchitis type: mucopurulent Qualified Code(s): J41.1 - Mucopurulent chronic bronchitis (3) Smoker: Code(s): F17.200 - Nicotine dependence, unspecified, uncomplicated (4) Pulmonary nodule: Code(s): R91.1 - Solitary pulmonary nodule Plan continue Symbicort Nebulizer as needed tobacco cessation, needs to quit, try nicoderm 7mg patch Azithromycin MWF CT chest in 1 yr F/U 6 months Orders: Orders CT chest wo IV con Today R91.1 - Solitary pulmonary nodule Medications: New nicotine 1 patch transdermal Q24H 30 days 30 ea 3RF azithromycin Take 1 tablet on Friday/Friday/Friday 250 mg PO 3XW 28 days 12 tabs 3RF K21.9 - Gastro-esophageal reflux disease without esophagitis Quality Reporting (2019) Adult ([facility] 138/2/22/69) Smoking risk assessment performed?: Yes Patient Tobacco Use Status: Current everyday Tobacco user Telehealth Telehealth Location of provider rendering services: practice address Location of patient: address on file Patient Identification confirmed using: Name, : Yes Telehealth method: voice only Patient verbally consented to treatment: Yes Patient verbally consented to billing insurance company: Yes Patient informed of any privacy concerns related to visit: Yes Coding Level of Care Code Tele Est Pt Level 4 (61386) Diagnoses Severe persistent asthma without complication J45.50 Asthma complication type: uncomplicated Asthma persistence: persistent Asthma severity: severe Mucopurulent chronic bronchitis J41.1 Chronic bronchitis type: mucopurulent Smoker F17.200 Pulmonary nodule R91.1 Time Spent (min) 15
== END 2023-05-20 15:28 | disposition home or self-care (01) ==
LOC: HO.HPS 09:33
PROVIDERS: PCP Internal Medicine; Visit Provider Hospitalist
DX: J45.50 Severe persistent asthma, uncomplicated (principal); J41.1 Mucopurulent chronic bronchitis; F17.200 Nicotine dependence, unspecified, uncomplicated; R91.1 Solitary pulmonary nodule
CPT/HCPCS: 99442

== ENCOUNTER → 2023-05-20 09:33 | Outpatient (BNVA) | payer MEDICARE, MEDICAID, SELFPAY | PROVIDERS: PCP Internal Medicine; Visit Provider Hospitalist | DX: R07.9 Chest pain, unspecified (principal) ==

== ENCOUNTER 2023-07-01 10:07 | Outpatient (AMB) | payer MEDICARE, MEDICAID, SELFPAY ==
[2023-07-01 10:09] VITALS: BP 134/84; PULSE 89; O2SAT 99; BMI 38.7
--- NOTE | 2023-07-01 10:09 | A.OFFPC_ITS ---
Vital Signs 07/01/23 10:09 Height 5 ft 4 in Weight 225 lb 6 oz BMI 38.7 BP 134/84 Blood Pressure Location Lt brachial Position Sitting Pulse 89 Pulse Source Pulse Oximeter Pulse Oximetry (%) 99 Oxygen Delivery Method Room Air Intake Visit Reasons: 4 month follow up Allergies lamotrigine [From LAMICTAL] Allergy (Intermediate, Verified 07/01/23 10:09) RASH Penicillins [PENICILLINS] Allergy (Intermediate, Verified 07/01/23 10:09) RASH prednisone [PREDNISONE] Allergy (Intermediate, Verified 07/01/23 10:09) AGITATION, anger, agitation, agitated mental/emotional status penicillin V Allergy (Unknown, Verified 07/01/23 10:09) Agitated Environmental [hx allergy shot Allergy (Unknown, Uncoded 05/20/23 09:34) Unknown Medication List - Last Reconciled 07/01/23 by Shruthi Castro MD albuterol sulfate 2.5 mg (3 mL) inhalation Q6H PRN albuterol sulfate 90 mcg/actuation 1 puff PO Q4-6H PRN 30 days aripiprazole 10 mg PO DAILY azithromycin 250 mg PO 3XW 28 days budesonide-formoterol 160-4.5 mcg/actuation (Symbicort) 2 puffs inhalation BID 30 days omlieaancw-eqirqhnohvuvw-oroh 50-325-40 mg 1 cap PO Q4H PRN 30 days cetirizine 10 mg PO DAILY PRN erenumab-aooe (Aimovig Autoinjector) 140 mg subcut ONCE 30 days fluconazole (Diflucan) 150 mg PO Q3D 2 doses hydrochlorothiazide 25 mg PO QAM 90 days lorazepam 0.5 mg PO BEDTIME PRN magnesium oxide 400 mg PO BEDTIME 30 days nebulizers As directed nicotine 1 patch transdermal Q24H 30 days ondansetron HCl 4 mg PO ONCE PRN 30 days perphenazine 8 mg PO TID riboflavin (vitamin B2) 400 mg PO DAILY 30 days rizatriptan 5 - 10 mg (0.5 - 1 x 10 mg) PO Q2H PRN 30 days semaglutide (Ozempic) mg subcut Tobacco use date assessed: 07/01/23 Dental Screening Dental Screen Date: 07/01/23 Did you have a dental visit in the last 12 months?: Yes Did you have a dental problem in the last 6 months where you did not have access to dental care?: No Was dental information given to patient?: Patient has dentist HPI 4 month follow up HPI Details Patient is a 42-year-old female came in today for her regular follow-up appointment Hypertension: Patient is on hydrochlorothiazide 25 mg, blood pressure is 134/84 Patient has bipolar disorder, she is seeing a psychiatrist in [place] She was referred to weight management from them and is now taking Ozempic Patient has lost some weight while on this medication. Her BMI is 38.7 She suffers from chronic bronchitis and is currently taking azithromycin 3 times a week through event marketing specialist Dr. Ramirez Flu vaccine was given today She has started smoking again 7 cigarettes daily patient says that she will start using Nicoderm patches again She is also seeing neurologist for headache and is taking Fioricet through them as needed She continued to get yeast infection and is requesting a cream which I have sent along with Diflucan as needed She will have labs done this weekend Patient will return in January for physical exam. Only medication from this office is hydrochlorothiazide and Zofran as needed for nausea [facility] Medical History Pulmonary nodule Abnormal chest x-ray Chronic bronchitis Asthma Chest pain Morbid obesity Essential hypertension Surgical History History of section Family History Father HTN (hypertension) Hypercholesteremia Mother Migraines Brother No problems noted. Sister No problems noted. Daughter No problems noted. Paternal Grandmother Migraines Daughter Kawasaki disease Daughter Autism spectrum disorder Other Mental health disorder Social History Housing: House Alcohol intake: never Patient Tobacco Use Status: Current everyday Tobacco user Tobacco use type: Cigarette Cigarettes Per Day: 10 Years Smoked: 20 e-Cigarette/Vaping Use: Never Used service: No Current occupational status: unemployed Cognitive needs: No Hearing needs: No Vision needs: No Questionnaire PHQ-9 Over the last 2 weeks, how often have you been bothered by any of the following problems? 1. Little interest or pleasure in doing things: several days 2. Feeling down, depressed, or hopeless: several days 3. Trouble falling or staying asleep, or sleeping too much: several days 4. Feeling tired or having little energy: nearly every day 5. Poor appetite or overeating: several days 6. Feeling bad about yourself - or that you are a failure or have let yourself or your family down: not at all 7. Trouble concentrating on things, such as reading the newspaper or watching television: not at all 8. Moving or speaking so slowly that other people could have noticed. Or the opposite - being so fidgety or restless that you have been moving around a lot more than usual: not at all 9. Thoughts that you would be better off or of hurting yourself in some way: not at all Total score: 7 Depression Screening Interpretation: Negative Depression Screening Done: Yes 17067 - PHQ-9 Billing: Yes Source: Developed by Drs. Estuardo Galindo, Miryam Pino, Joe Chakraborty and colleagues, with an educational roxie from [employer]. Thrive Questionnaire Date Thrive assessed: 02/05/23 AUDIT C Alcohol Use Questionnaire (AUDIT-C) 1. How often do you have a drink containing alcohol?: Never 3. How often do you have six or more drinks on one occasion?: Never Total Score: 0 Score Reviewed/Action Taken: Yes GABRIELLE-7 AMB Questionnaire GABRIELLE-7 Date GABRIELLE - 7 assessed: 02/05/23 Source: Developed by Drs. Estuardo Galindo, Miryam Pino, Joe Chakraborty and colleagues, with an educational roxie from [employer]. Review of Systems Const Denies chills and Denies fever(s) ENT Denies epistaxis and Denies nasal discharge Card Denies chest pain Resp Denies chest congestion, Denies cough and Denies hemoptysis GI Denies diarrhea and Denies nausea Skin/Breast Denies rash Neuro Reports no additional complaints Psych Reports no additional complaints Endo Reports no additional complaints Physical exam (Primary Care) Vital Signs: Last Vital Signs Pulse 89 07/01/23 10:09 BP 134/84 07/01/23 10:09 Pulse Ox 99 07/01/23 10:09 Oxygen Delivery Method Room Air 07/01/23 10:09 BMI result Body Mass Index 38.7 BMI Assessment/Plan discussion: High Tobacco/Smoking Status: Tobacco use Status Tobacco use date assessed 07/01/23 07/01/23 10:15 Patient Tobacco Use Status Current everyday Tobacco 07/01/23 10:15 Tobacco use type Cigarette 07/01/23 10:15 e-Cigarette/Vaping Use Never Used 07/01/23 10:15 Are you ready to quit: Yes Tobacco cessation counseling provided: Yes Relapse Prevention: discussed the importance of a supportive environment CPT code: 52749 - 4-10 Minutes PHQ-9: PHQ-9 Score PHQ-9: Total score 7 07/01/23 10:34 Depression Screening Interpretation: Negative Thrive Assessment: Date of Thrive Assessment Date Thrive assessed 02/05/23 07/01/23 10:15 Const General: cooperative, comfortable and no acute distress Orientation/consciousness: patient oriented x3 HENMT Head: Yes normocephalic Eyes General: appearance normal, both eyes and all related structures Neck Neck: Yes supple Resp Effort & Inspection: normal respiratory effort, no cough and no stridor Cardio Rhythm: regular rhythm Heart sounds: S1 normal heart sound present and S2 normal heart sound present Skin General skin exam: turgor normal Neuro General: patient oriented x3, tone normal and moves all extremities Extrem Right lower extremity: no edema Left lower extremity: no edema Office Procedures Flu Questionnaire Does the patient have a severe egg allergy?: No Does the patient have severe life threatening allergies?: No Does the patient have a fever or illness today?: No Has the patient ever had Guillain-R[place]oul Syndrome?: No Has the patient ever had any past reaction to a flu shot?: No Immunizations flu vacc [id number] 6mos up(PF) 60 mcg(15 mcgx4)/0.5 mL IM syringe Performing Provider: Shruthi Castro MD [place] [facility] [place] Administered by: DIONICIO Huffman on 07/01/23 10:40 Dose Route Admin Location Dispensed Lot Number Expiration Date NDC Pan Washer 0.5 mL IM Right Deltoid 0.5 mL [id number] 03/25/24 [id number] [employer] VIS Given Date VIS Provided VIS Publication Date 07/01/23 Single Vaccine 21 Eligibility Eligibility Date Funding Source Not [facility] Eligible 07/01/23 Private Assessment and Plan Assessment & Plan (1) Essential hypertension: Code(s): I10 - Essential (primary) hypertension (2) Bipolar disorder: Code(s): F31.9 - Bipolar disorder, unspecified Qualifiers: Active/Remission status: in full remission Most recent bipolar episode type: mixed Qualified Code(s): F31.78 - Bipolar disorder, in full remission, most recent episode mixed (3) Depression, major, severe recurrence: Code(s): F33.2 - Major depressive disorder, recurrent severe without psychotic features Qualifiers: Psychotic features: without psychotic features Qualified Code(s): F33.2 - Major depressive disorder, recurrent severe without psychotic features (4) Chronic nausea: Code(s): R11.0 - Nausea (5) Chronic bronchitis: Code(s): J42 - Unspecified chronic bronchitis Qualifiers: Chronic bronchitis type: mucopurulent Qualified Code(s): J41.1 - Mucopurulent chronic bronchitis (6) Elevated ferritin: Code(s): R79.89 - Other specified abnormal findings of blood chemistry (7) Migraine without aura: Code(s): G43.009 - Migraine without aura, not intractable, without status migrainosus Qualifiers: Intractability: intractable Status migrainosus presence: without status migrainosus Qualified Code(s): G43.019 - Migraine without aura, intractable, without status migrainosus (8) Obesity due to excess calories: Code(s): E66.09 - Other obesity due to excess calories Qualifiers: Body mass index: BMI 38.0-38.9 Obesity classification: adult class 2 (BMI 35 - 39.9) Serious obesity comorbidity presence: with serious comorbidity Qualified Code(s): E66.01 - Morbid (severe) obesity due to excess calories; Z68.38 - Body mass index [BMI] 38.0-38.9, adult Plan Patient is a 42-year-old female came in today for her regular follow-up appointment Hypertension: Patient is on hydrochlorothiazide 25 mg, blood pressure is 134/84 Patient has bipolar disorder, she is seeing a psychiatrist in [place] She was referred to weight management from them and is now taking Ozempic Patient has lost some weight while on this medication. Her BMI is 38.7 She suffers from chronic bronchitis and is currently taking azithromycin 3 times a week through event marketing specialist Dr. Ramirez Flu vaccine was given today She has started smoking again 7 cigarettes daily patient says that she will start using Nicoderm patches again She is also seeing neurologist for headache and is taking Fioricet through them as needed She continued to get yeast infection and is requesting a cream which I have sent along with Diflucan as needed She will have labs done this weekend Patient will return in January for physical exam. Only medication from this office is hydrochlorothiazide and Zofran as needed for nausea Orders: Orders Comprehensive Met. Panel Today F31.9 - Bipolar disorder, unspecified, F33.2 - Major depressive disorder, recurrent severe without psychotic features, I10 - Essential (primary) hypertension, J42 - Unspecified chronic bronchitis, R11.0 - Nausea Complete Blood Count Auto Diff Today F31.9 - Bipolar disorder, unspecified, F33.2 - Major depressive disorder, recurrent severe without psychotic features, I10 - Essential (primary) hypertension, J42 - Unspecified chronic bronchitis, R11.0 - Nausea LDL Cholesterol Direct Today F31.9 - Bipolar disorder, unspecified, F33.2 - Major depressive disorder, recurrent severe without psychotic features, I10 - Essential (primary) hypertension, J42 - Unspecified chronic bronchitis, R11.0 - Nausea TSH reflex Free T4 Today F31.9 - Bipolar disorder, unspecified, F33.2 - Major depressive disorder, recurrent severe without psychotic features, I10 - Essential (primary) hypertension, J42 - Unspecified chronic bronchitis, R11.0 - Nausea Ferritin Today R79.89 - Other specified abnormal findings of blood chemistry Influenza [id number] Immunization Today Z23 - Encounter for immunization Medications: New nystatin 1 appl topical DAILY 30 days 30 grams 1RF Changed From fluconazole (Diflucan) may repeat second dose 72 hrs after first dose if symptoms persist 150 mg PO Q3D 2 doses 2 tabs 0RF To fluconazole may repeat second dose 72 hrs after first dose if symptoms persist 150 mg PO Q3D 2 doses 2 tabs 0RF Coding Level of Care Code Est Pt Level 4 (41683) Diagnoses Essential hypertension I10 Bipolar disorder, in full remission, most recent episode mixed F31.78 Active/Remission status: in full remission Most recent bipolar episode type: mixed Severe episode of recurrent major depressive disorder, without psychotic features F33.2 Psychotic features: without psychotic features Chronic nausea R11.0 Mucopurulent chronic bronchitis J41.1 Chronic bronchitis type: mucopurulent Elevated ferritin R79.89 Intractable migraine without aura and without status migrainosus G43.019 Intractability: intractable Status migrainosus presence: without status migrainosus Class 2 severe obesity due to excess calories with serious comorbidity and body mass index (BMI) of 38.0 to 38.9 in adult E66.01; Z68.38 Body mass index: BMI 38.0-38.9 Obesity classification: adult class 2 (BMI 35 - 39.9) Serious obesity comorbidity presence: with serious comorbidity Additional Codes Vital Signs *Quality* - CPT code: 32206 - 4-10 Minutes ([id number])
== END 2023-07-01 11:37 | disposition home or self-care (01) ==
PROVIDERS: PCP Internal Medicine; Visit Provider Internal Medicine
DX: I10 Essential (primary) hypertension (principal); F31.78 Bipolar disorder, in full remission, most recent episode mixed; J41.1 Mucopurulent chronic bronchitis; E66.01 Morbid (severe) obesity due to excess calories; Z68.38 Body mass index [BMI] 38.0-38.9, adult; Z23 Encounter for immunization; R79.89 Other specified abnormal findings of blood chemistry; R11.0 Nausea; G43.019 Migraine without aura, intractable, without status migrainosus
CPT/HCPCS: 90471; 90686; 99214

== ENCOUNTER 2023-09-11 09:43 | Outpatient (REF) | payer MEDICARE, MEDICAID, SELFPAY ==
[2023-09-11 13:18] LABS: MANUAL DIFF FLAG NO
[2023-09-11 13:35] LABS: Basophils Percent Auto 0.4 % (0-2); Eosinophils Absolute Auto 0.1 X10*3/uL (0.0-0.4); Eosinophils Percent Auto 1.3 % (0-4); Hematocrit 42.3 % (37.0-47.0); Hemoglobin 14.3 g/dl (12.0-16.0); Imm Gran Abs Auto 0.02 X10*3/uL (0.00-0.03); Imm Gran Pct Auto 0.3 % (0.0-0.4); Lymphocytes Absolute Auto 2.1 X10*3/uL (1.2-4.9); Lymphocytes Percent Auto 27.1 % (20-40); Mean Corpuscular HGB Conc 33.8 g/dl (31.0-35.0); Mean Corpuscular Hemoglobin 30.8 pg (27.0-33.0); Mean Corpuscular Volume 91.2 fL (80.0-98.0); Monocytes Absolute Auto 0.3 X10*3/uL (0.1-1.2); Monocytes Percent Auto 4.1 % (2-11); Neutrophils Absolute Auto 5.2 x10*3/uL (2.0-8.3); Neutrophils Percent Auto 66.8 % (45-73); Platelet Count 144 X10*3/uL (160-400); Red Blood Count 4.64 X10*6/uL (4.20-5.50); Red Cell Distribution Width 12.1 % (11.0-16.0); White Blood Count 7.7 X10*3/uL (4.8-10.8)
[2023-09-11 13:48] LABS: Alanine Aminotransferase 18 U/L (0-31); Albumin Level 4.2 g/dL (3.5-5.0); Alkaline Phosphatase 80 U/L (39-117); Anion Gap 11 (12-20); Aspartate Amino Transferase 16 U/L (5-31); Bilirubin Total 0.3 mg/dL (0.0-1.0); Blood Urea Nitrogen 11 mg/dL (9-16); Calcium 9.5 mg/dL (8.4-10.2); Carbon Dioxide 28 mmol/L (22-29); Chloride 105 mmol/L (96-108); Estimated Glomerular Filt Rate > 60; Glucose Random 96 mg/dL (60-115); Potassium 3.8 mmol/L (3.3-5.1); Sodium 140 mmol/L (135-145); Total Protein 7.3 g/dL (6.5-8.0)
[2023-09-11 13:52] LABS: Cholesterol 156 mg/dL (<200); HDL Cholesterol 40 mg/dL (>40); LDL Cholesterol Calculated 95 mg/dL (<100); Triglycerides 108 mg/dL (<150)
[2023-09-11 14:00] LABS: Estimated Average Glucose 94 mg/dL; Hemoglobin A1c % 4.9 % (<6.0)
[2023-09-11 14:06] LABS: Ferritin 178 ng/mL (10-250); TSH reflex Free T4 1.44 uIU/mL (0.32-4.0)
[2023-09-12 13:13] LABS: LDL Cholesterol Direct 88 mg/dL (<100)
== END 2023-09-11 09:44 | disposition home or self-care (01) ==
LOC: HO.HMGCLDS 09:43
PROVIDERS: PCP Internal Medicine; Referring Provider Internal Medicine; Visit Provider Internal Medicine
DX: J42 Unspecified chronic bronchitis (principal); I10 Essential (primary) hypertension; F33.2 Major depressive disorder, recurrent severe without psychotic features; R11.0 Nausea; R79.89 Other specified abnormal findings of blood chemistry; E66.01 Morbid (severe) obesity due to excess calories; Z68.39 Body mass index [BMI] 39.0-39.9, adult
CPT/HCPCS: 36415; 80053; 80061; 82728; 83036; 83721; 84443; 85025

== ENCOUNTER 2023-10-07 09:33 | Outpatient (AMB) | payer MEDICARE, MEDICAID, SELFPAY ==
[2023-10-07 09:34] VITALS: BMI 37.4
--- NOTE | 2023-10-07 09:34 | A.OFFVIS_ITS ---
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 She was evaluated at [facility] ED and discharged. CXR apperantly with pneumonia. She was treated and released. Required multiple courses of antibiotics and steroids. Ever since then she has had multiple courses of antibiotics and prednisone. She had a repeat CXR in april with minimal basilar changes. She was again sick in November and went to an urgent care and was diagnosed with pneumonia. She was given a course of levaquin and steroids. She is better but still complaining of chest tightness and burning . She is still smoking but she would like to quit. 02/06/2022 the patient is here for a pulmonary follow-up visit. Overall she is feeling a little better. She did try the Symbicort inhaler. However, I gave her thrush therefore she stopped it. She has not required it. She also was prescribed the Wellbutrin for the smoking cessation and she could not tolerate that either. She is going to be looking into hypnosis another alternative to quitting. I believe this is a good option specially since she is motivated to quitting. The overall her breathing has improved. She did have a chest x-ray that we did review and compared to her previous in appears that she is clearing the left basilar opacity area which is reassuring. We also did review the blood work. One of the laboratories was the COVID-19 antibody which is no longer present. I did emphasize to the patient that she no longer has the antibodies low for she is at high risk for getting reinfected with COVID-19. Therefore, the patient is interested in getting vaccinated. She is going to make an appointment in order to do so at her earliest convenience. The patient is going to work on weight loss and exercise and smoking cessation. Will plan to follow-up sometime in the fall with pulmonary function studies. In meantime she can go back to using the Symbicort 1 puff as needed. She needs to make sure she rinses her mouth well ideally with mouthwash after using the Symbicort. 06/06/2022 The patient is here for a sic k visit. She was exposed to sick contacts (her children). She started developing a left sided pleuritic pain, mils to moderate in severity. Sometimes feels like icy hot . She has felt like this when she has developed pneumonia. She did have a CXR with interval progression of bilateral nodular opacities. She also has a cough, but non productive. She also had recent bloodwork demonstrating a left shift. 07/24/2022 the patient is here for a pulmonary follow-up visit. Overall the patient is doing better after the course of antibiotics and prednisone. She was again started to feel a chest discomfort and sometimes like a icy hot sens ation. She was also having more coughing and more chest congestion of the time. Now she is better although she still complains of some shortness of breath. She still has a hacky cough. We did review her chest x-ray that she had back then. She did have any hazy opacity noted on the left mid lung zone. The patient does smoke cigarettes. Therefore, due to the fact that she continues to be symptomatic and she had an abnormal chest x-ray I will go ahead and order a CT scan of the chest to better assess density. In the meantime the patient will continue to work on smoking cessation. She does have a history of depression so therefore she was told not to use Chantix. She has had a bad reaction to Wellbutrin in the past. she will try nicotine replacement therapy. 11/19/2022 the patient is here for a pulm onary follow-up visit. Recently she called because she was having chest discomfort in addition to cough. She has it been exposed to sick contacts. She started antibiotics and she feels better. Her recent chest x-rays reassuring without any airspace disease. In addition to that, the patient did have a CT scan of the chest this year. Will personally reviewed it. The report mentioned no pulmonary nodules although I do see it nodular density in the right lower lobe measuring 6 mm in size. Patient is high risk because of his smoking history. Will plan to repeat the CT scan in 6 months. In the meantime she knows she needs to quit smoking. She is going to come up without quit contract and she is going to work on cutting down on her cigarettes now and then quit altogether on December 23. Will follow-up in [address] scan. She is going to continue with current respiratory therapy at this time. 05/20/2023 the patient is here for a tele health visit. She could not make the appointment since she has a sick contact sick family member. The patient overall has been doing better. Back in March she did have worsening productive cough in addition to chest discomfort. Typically how she gets before pneumonia. Therefore, the patient did have an appointment with our office for an urgent visit and she was started on medications for lower respiratory infecti on. Symptoms did improve. In addition to that we did review her CT scan that she had recently. It appeared that the right lower lobe pulmonary nodule has decreased in size. Otherwise do see bilateral pulmonary nodules some that may be new. Therefore, in view of her smoking history and high risk for cancer the patient should get a repeat CT scan in a year's time. She is also by trying to quit smoking although is very hard for her. She wants to try is more alert nicotine patch to see if she can tolerate it since she could not tolerate the 14 mg. The patient will continue with current respiratory therapy. Will plan to follow-up in 6 months or sooner if she develops any worsening symptoms. 10/07/2023 the patient has a telehealth v isit today. The patient overall has been feeling little better recently. She had been on the azithromycin 3 times a week and she was able to avoid a lower respiratory infection pneumonia until sometime in July. She has stopped taking the medication and then her kids became sick and she was exposed to sick contact and started developing respiratory symptoms. She then restart taking the azithromycin she improved. Now more recently she was exposed to again her children's illness and she started developing worsening primarily discomfort that hazy hot sensation that she feels the chest area before she did see pneumonia. The patient recently had blood work. We did reviewed. Her white counts normal and she does have slight decrease in her platelet count but I did reassure her that is a minimal change is not significant at this time. [facility] Medical History Pulmonary nodule Abnormal chest x-ray Chronic bronchitis Asthma Chest pain Morbid obesity Essential hypertension Surgical History History of section Family History Father HTN (hypertension) Hypercholesteremia Mother Migraines Brother No problems noted. Sister No problems noted. Daughter No problems noted. Paternal Grandmother Migraines Daughter Kawasaki disease Daughter Autism spectrum disorder Other Mental health disorder Social History Housing: House Alcohol intake: never Patient Tobacco Use Status: Current everyday Tobacco user Tobacco use type: Cigarette Cigarettes Per Day: 10 Years Smoked: 20 e-Cigarette/Vaping Use: Never Used service: No Current occupational status: unemployed Cognitive needs: No Hearing needs: No Vision needs: No Review of Systems Const Denies chills and Denies fever(s) ENT Denies epistaxis and Denies nasal discharge Card Denies chest pain and Reports dyspnea on exertion Resp Denies chest congestion, Reports cough, Denies hemoptysis, Denies pain on inspiration, Denies pain with cough and Reports dyspnea on exertion GI Denies diarrhea and Denies nausea Skin/Breast Denies rash Neuro Reports no additional complaints, Denies Abnormal speech present and Denies Sensory deficit (Neuro) Psych Reports no additional complaints Endo Reports no additional complaints Physical Exam Vital Signs: BMI result Body Mass Index 37.4 Const General: comfortable Orientation/consciousness: patient oriented x3 Resp Effort & Inspection: normal respiratory effort and able to speak in complete sentences Neuro General: patient oriented x3 Speech: No Abnormal speech present Sensory Exam: No Sensory deficit (Neuro) Assessment & Plan Assessment & Plan (1) Asthma: Code(s): J45.909 - Unspecified asthma, uncomplicated Qualifiers: Asthma complication type: uncomplicated Asthma persistence: persistent Asthma severity: severe Qualified Code(s): J45.50 - Severe persistent asthma, uncomplicated (2) Chronic bronchitis: Code(s): J42 - Unspecified chronic bronchitis Qualifiers: Chronic bronchitis type: mucopurulent Qualified Code(s): J41.1 - Mucopurulent chronic bronchitis (3) Smoker: Code(s): F17.200 - Nicotine dependence, unspecified, uncomplicated (4) Pulmonary nodule: Code(s): R91.1 - Solitary pulmonary nodule Plan continue Symbicort Nebulizer as needed tobacco cessation, needs to quit, try nicoderm 7mg patch Azithromycin MWF needs EKG CT chest in Fall 2023 F/U 4-6 months Orders: Orders ECG 12 lead EKG Today J44.9 - Chronic obstructive pulmonary disease, unspecified Medications: New doxycycline monohydrate 100 mg PO BID 14 days 28 tabs 0RF Refilled azithromycin Take 1 tablet on Friday/Friday/Friday 250 mg PO 3XW 28 days 12 tabs 6RF K21.9 - Gastro-esophageal reflux disease without esophagitis budesonide-formoterol 160-4.5 mcg/actuation (Symbicort) 2 puffs inhalation BID 30 days 10.2 grams 11RF J44.9 - Chronic obstructive pulmonary disease, unspecified nicotine 1 patch transdermal Q24H 30 days 30 ea 3RF Quality Reporting (2019) Adult ([facility] 138/10/16/68) Smoking risk assessment performed?: Yes Patient Tobacco Use Status: Current everyday Tobacco user Telehealth Telehealth Location of provider rendering services: practice address Location of patient: address on file Patient Identification confirmed using: Name, : Yes Telehealth method: voice only Patient verbally consented to treatment: Yes Patient verbally consented to billing insurance company: Yes Patient informed of any privacy concerns related to visit: Yes Coding Level of Care Code Tele Est Pt Level 4 (97895) Diagnoses Severe persistent asthma without complication J45.50 Asthma complication type: uncomplicated Asthma persistence: persistent Asthma severity: severe Mucopurulent chronic bronchitis J41.1 Chronic bronchitis type: mucopurulent Smoker F17.200 Pulmonary nodule R91.1 Time Spent (min) 16
== END 2023-10-07 09:54 | disposition home or self-care (01) ==
LOC: HO.HPS 09:33
PROVIDERS: PCP Internal Medicine; Visit Provider Hospitalist
DX: J45.50 Severe persistent asthma, uncomplicated (principal); F17.210 Nicotine dependence, cigarettes, uncomplicated; R91.1 Solitary pulmonary nodule
CPT/HCPCS: 99442

== ENCOUNTER → 2023-10-07 09:33 | Outpatient (BNVA) | payer MEDICARE, MEDICAID, SELFPAY | PROVIDERS: PCP Internal Medicine; Visit Provider Hospitalist ==

== ENCOUNTER 2023-10-10 09:50 | Outpatient (AMB) | payer MEDICARE, MEDICAID, SELFPAY ==
--- NOTE | 2023-10-10 09:50 | MHC.OFFVIS ---
Intake Intake Visit Reasons: 3M FOLLOWUP Migraines/Confirmed Intake Note: Patient things I think things are better, I still get migraines but overall, Im feeling better Allergies lamotrigine [From LAMICTAL] Allergy (Intermediate, Verified 10/10/23 09:51) RASH Penicillins [PENICILLINS] Allergy (Intermediate, Verified 10/10/23 09:51) RASH prednisone [PREDNISONE] Allergy (Intermediate, Verified 10/10/23 09:51) AGITATION, anger, agitation, agitated mental/emotional status penicillin V Allergy (Unknown, Verified 10/10/23 09:51) Agitated Environmental [hx allergy shot Allergy (Unknown, Uncoded 10/10/23 09:51) Unknown Medication List - Last Reconciled 10/10/23 by ELIZABETH Cook albuterol sulfate 90 mcg/actuation 1 puff PO Q4-6H PRN 30 days albuterol sulfate 2.5 mg (3 mL) inhalation Q6H PRN aripiprazole 10 mg PO DAILY azithromycin 250 mg PO 3XW 28 days budesonide-formoterol 160-4.5 mcg/actuation (Symbicort) 2 puffs inhalation BID 30 days cpiwsxsnng-qoswltetasnij-cyfz 50-325-40 mg 1 cap PO Q4H PRN 30 days cetirizine 10 mg PO DAILY PRN doxycycline monohydrate 100 mg PO BID 14 days fluconazole 150 mg PO Q3D PRN lorazepam 0.5 mg PO BEDTIME PRN magnesium oxide 400 mg PO BEDTIME 30 days nebulizers As directed nicotine 1 patch transdermal Q24H 30 days nystatin 1 appl topical DAILY PRN ondansetron HCl 4 mg PO ONCE PRN 30 days perphenazine 4 mg PO BID riboflavin (vitamin B2) 400 mg PO DAILY 30 days rizatriptan 5 - 10 mg (0.5 - 1 x 10 mg) PO Q2H PRN 30 days semaglutide (weight loss) (Wegovy) 2.4 mg subcut QWEEK HPI HPI Comments History of Present Illness Details 43-yr-old female presents for f/u televideo visit via [employer]. 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 Pt has questions r/t migraine dx/tx. Pt reports her migraines were doing very well, until she started having the URI s/s. She did not start the Aimovig- had not had a menstrual cycle d/t her IUD- and so was not sure when to start it. Tried Rizatriptan- but Fioricet was more effective. Trying to use Fioricet sparingly. Baseline headache characteristics: Severe, usually left throbbing, piercing pain, in right side or holocranial, a/w Photophobia, phonophobia, osmophobia, allodynia, tiredness, dizziness.And Postdrome of residual hang over sensation She thompson scontinue to have bothersome oral-buccal TD s/s- usually when not talking. [facility] Medical History Pulmonary nodule Abnormal chest x-ray Chronic bronchitis Asthma Chest pain Morbid obesity Essential hypertension Surgical History History of section Family History Father HTN (hypertension) Hypercholesteremia Mother Migraines Brother No problems noted. Sister No problems noted. Daughter No problems noted. Paternal Grandmother Migraines Daughter Kawasaki disease Daughter Autism spectrum disorder Other Mental health disorder Social History Housing: House Alcohol intake: never Patient Tobacco Use Status: Current everyday Tobacco user Tobacco use type: Cigarette Cigarettes Per Day: 10 Years Smoked: 20 e-Cigarette/Vaping Use: Never Used service: No Current occupational status: unemployed Cognitive needs: No Hearing needs: No Vision needs: No Physical Exam Const General: cooperative and no acute distress Orientation/consciousness: patient oriented x3 Resp Effort & Inspection: normal respiratory effort and able to speak in complete sentences Neuro Other: Very mild involuntray oral movements- at rest. General: patient oriented x3 Cognition (Neuro): normal cognition Psych Appearance: grossly normal Mental Status: mental status grossly normal Speech and movement: Clear speech present Affect: normal affect Attitude: cooperative Assessment & Plan Assessment & Plan (1) Migraine without aura: Code(s): G43.009 - Migraine without aura, not intractable, without status migrainosus Qualifiers: Status migrainosus presence: without status migrainosus Intractability: intractable Qualified Code(s): G43.019 - Migraine without aura, intractable, without status migrainosus (2) Menstrual migraine: Code(s): G43.829 - Menstrual migraine, not intractable, without status migrainosus (3) Tardive dyskinesia: Code(s): G24.01 - Drug induced subacute dyskinesia Plan Answered pt's questions r/t migraine etiology, diagnosis, tx. Also will send patient centered education/advocacy info via pt's portal. For overall headache management: Continue to try to optimize good self-care, including but not limited to maintaining a healthy diet, adequate fluid intake, adequate sleep, and engaging in regular physical activity. Track headaches. ? For acute headache treatment: Continue Rizatriptan 10mg prn for now. May continue Fioricet- may use sparingly prn- advsied of risk for medication adaptation headache w/ frequent use. Previous acute migraine medication trials: Sumatriptan- ineffective. Acute migraine medication contraindications: None at this time. Future considerations- gepants. ? For headache prevention medication: Riboflavin 400mg qam Magnesium 400mg qhs Start Aimovig 140mg sc q month- however start after she completes her current course of ABT, and do 1st injection on a Friday (to separate from her scheduled azithromycin and Wegivy injection). Previous migraine prevention medication trials: Topiramate- ineffective and caused cognitive changes. CCB/amlodipine- ineffective. Migraine prevention medication contraindications: BBs d/t symptomatic asthma dx. TCAs- as pt has bipolar and has previously not tolerated anti-depressants. ? Monitor TD s/s- Will do a movement exam at f/u. ? F/u in 3-4 months or sooner prn. Medications: Refilled erenumab-aooe (Aimovig Autoinjector) 140 mg subcut ONCE 30 days 1 mL 6RF Quality Reporting (2019) Adult ([facility] 13810/16/68) Smoking risk assessment performed?: Yes Patient Tobacco Use Status: Current everyday Tobacco user Telehealth Telehealth Location of provider rendering services: practice address Location of patient: address on file Patient Identification confirmed using: Name, : Yes Telehealth method: video Patient verbally consented to treatment: Yes Patient verbally consented to billing insurance company: Yes Patient informed of any privacy concerns related to visit: Yes Minutes spent on Phone/Video with Pt.: 27 Coding Level of Care Code Tele Est Pt Level 4 (87022) Diagnoses Intractable migraine without aura and without status migrainosus G43.019 Status migrainosus presence: without status migrainosus Intractability: intractable Menstrual migraine G43.829 Tardive dyskinesia G24.01
== END 2023-10-10 15:40 | disposition home or self-care (01) ==
LOC: HO.HSMS 09:50
PROVIDERS: PCP Internal Medicine; Visit Provider Nurse Practitioner Family
DX: G43.019 Migraine without aura, intractable, without status migrainosus (principal); G43.829 Menstrual migraine, not intractable, without status migrainosus; G24.01 Drug induced subacute dyskinesia; T42.8X Poisoning by, adverse effect of and underdosing of antiparkinsonism drugs and other central muscle-tone depressants
CPT/HCPCS: 99214

== ENCOUNTER → 2023-10-10 09:50 | Outpatient (BNVA) | payer MEDICARE, MEDICAID, SELFPAY | PROVIDERS: PCP Internal Medicine; Visit Provider Nurse Practitioner Family ==

== ENCOUNTER 2024-01-20 09:28 | Outpatient (AMB) | payer MEDICARE, MEDICAID, SELFPAY ==
[2024-01-20 09:33] VITALS: BP 126/76; PULSE 76; O2SAT 98; BMI 37.2
--- NOTE | 2024-01-20 09:33 | MHC.PC.OV ---
Vital Signs 01/20/24 09:33 Height 5 ft 4 in Weight 216 lb 8 oz BMI 37.2 BP 126/76 Blood Pressure Location Rt brachial Position Sitting Pulse 76 Pulse Source Pulse Oximeter Pulse Oximetry (%) 98 Oxygen Delivery Method Room Air Intake Visit Reasons: Hemmorroids~ Allergies lamotrigine [From LAMICTAL] Allergy (Intermediate, Verified 01/20/24 09:34) RASH Penicillins [PENICILLINS] Allergy (Intermediate, Verified 01/20/24 09:34) RASH prednisone [PREDNISONE] Allergy (Intermediate, Verified 01/20/24 09:34) AGITATION, anger, agitation, agitated mental/emotional status penicillin V Allergy (Unknown, Verified 01/20/24 09:34) Agitated Environmental [hx allergy shot Allergy (Unknown, Uncoded 10/10/23 09:51) Unknown Medication List - Last Reconciled 01/20/24 by Shruthi Castro MD albuterol sulfate 90 mcg/actuation 1 puff PO Q4-6H PRN 30 days albuterol sulfate 2.5 mg (3 mL) inhalation Q6H PRN aripiprazole 10 mg PO DAILY azithromycin 250 mg PO 3XW 28 days budesonide-formoterol 160-4.5 mcg/actuation (Symbicort) 2 puffs inhalation BID 30 days vhlhdqisdb-smnaitaopfebk-qgpi 50-325-40 mg 1 cap PO Q4H PRN 30 days cetirizine 10 mg PO DAILY PRN erenumab-aooe (Aimovig Autoinjector) 140 mg subcut ONCE 30 days fluconazole 150 mg PO Q3D 2 doses fluconazole 150 mg PO Q3D PRN hydrochlorothiazide 25 mg PO DAILY lorazepam 0.5 mg PO BEDTIME PRN magnesium oxide 400 mg PO BEDTIME 30 days nebulizers As directed nicotine 1 patch transdermal Q24H 30 days nystatin 1 appl topical DAILY PRN ondansetron HCl 4 mg PO ONCE PRN 30 days perphenazine 4 mg PO BID semaglutide 1 mg subcut QWEEK Tobacco use date assessed: 01/20/24 Dental Screening Dental Screen Date: 01/20/24 Did you have a dental visit in the last 12 months?: Yes Did you have a dental problem in the last 6 months where you did not have access to dental care?: No Was dental information given to patient?: Patient has dentist HPI Hemmorroids~ HPI Details Suzie 43-year-old female came in today for an acute problem Patient has had history of hemorrhoids, she has seen Dr. Escalera in the past and surgery was recommended but she could not have that done at that time She is still not ready however she has a follow-up appointment with Dr. Escalera, currently her hemorrhoids have been flared and are very painful She is requesting hydrocortisone suppositories which I have sent for her. She was taking Ozempic injection through weight loss provider in [place] and has done well for the past 2 years She was able to lose over 70 lb with the help of injections until her insurance stopped covering for it She has requesting a letter from me stating that she can benefit from the injections for the She was on 2 blood pressure medications and she was able to stop 1 as she lost some weight Currently she is on hydrochlorothiazide 25 mg, blood pressure is well-controlled with just 1 medication She is due for labs which she will have it done today Patient is also seeing Dr. Ramirez pulmonary and was taking azithromycin to prevent pneumonia Which has caused yeast infection she is requesting Diflucan which I have sent as well Her BMI is 37.2 today she is 216 lb [facility] Medical History Pulmonary nodule Abnormal chest x-ray Chronic bronchitis Asthma Chest pain Morbid obesity Essential hypertension Surgical History History of section Family History Father HTN (hypertension) Hypercholesteremia Mother Migraines Brother No problems noted. Sister No problems noted. Daughter No problems noted. Paternal Grandmother Migraines Daughter Kawasaki disease Daughter Autism spectrum disorder Other Mental health disorder Social History Housing: House Alcohol intake: never Patient Tobacco Use Status: Current everyday Tobacco user Tobacco use type: Cigarette Cigarettes Per Day: 10 Years Smoked: 20 e-Cigarette/Vaping Use: Never Used service: No Current occupational status: unemployed Cognitive needs: No Hearing needs: No Vision needs: No Questionnaire PHQ-9 Over the last 2 weeks, how often have you been bothered by any of the following problems? 1. Little interest or pleasure in doing things: more than half the days 2. Feeling down, depressed, or hopeless: more than half the days 3. Trouble falling or staying asleep, or sleeping too much: nearly every day 4. Feeling tired or having little energy: not at all 5. Poor appetite or overeating: not at all 6. Feeling bad about yourself - or that you are a failure or have let yourself or your family down: not at all 7. Trouble concentrating on things, such as reading the newspaper or watching television: not at all 8. Moving or speaking so slowly that other people could have noticed. Or the opposite - being so fidgety or restless that you have been moving around a lot more than usual: not at all 9. Thoughts that you would be better off or of hurting yourself in some way: not at all Total score: 7 Depression Screening Interpretation: Negative Depression Screening Done: Yes 39923 - PHQ-9 Billing: Yes Source: Developed by Drs. Estuardo Galindo, Miryam Pino, Joe Chakraborty and colleagues, with an educational roxie from [employer]. Thrive Questionnaire Date Thrive assessed: 01/20/24 I am a: Patient What is your living situation today?: I have a steady place to live Within the past 12 months, did the food you bought not last and you didn't have the money to get more?: Never true Within the past 12 months, did you worry whether your food would run out before you got money to buy more?: Never true Do you have trouble paying for medicines?: No Do you have trouble getting transportation to medical appointments?: No Do you have trouble paying your heating and electricity bill?: No Do you have trouble taking care of your child, family member or friend?: No Do you have trouble with day-to-day activities such as bathing, preparing meals, shopping, managing finances, etc.?: No Are you currently unemployed and looking for a job?: No Are you interested in more education?: No Please select the resources that you would like help with: None Currently or been in a relationship where the following occur: no concerns reported THRIVE Score: 0 AUDIT C Alcohol Use Questionnaire (AUDIT-C) 1. How often do you have a drink containing alcohol?: Never 3. How often do you have six or more drinks on one occasion?: Never Total Score: 0 Score Reviewed/Action Taken: Yes GABRIELLE-7 AMB Questionnaire GABRIELLE-7 Date GABRIELLE - 7 assessed: 01/20/24 Feeling nervous, anxious, or on edge: 1 = Several days Not being able to stop or control worryin = More than half the days Worrying too much about different things: 2 = More than half the days Trouble relaxin = More than half the days Being so restless that it is hard to sit still: 0 = Not at all Becoming easily annoyed or irritable: 1 = Several days Feeling afraid as if something awful might happen: 1 = Several days Total GABRIELLE-7 score (0-4 normal; 5-9 mild; 10-14 moderate; 15-21 severe): 9 Source: Developed by Drs. Estuardo Galindo, Miryam Pino, Joe Chakraborty and colleagues, with an educational roxie from [employer]. GABRIELLE-7 Assessment Billing GABRIELLE-7 Assessment Tool: GABRIELLE-7 Assessment 74306 Review of Systems Const Denies chills and Denies fever(s) ENT Denies epistaxis Card Denies chest pain Resp Denies chest congestion, Denies cough and Denies hemoptysis GI Denies diarrhea and Denies nausea Skin/Breast Denies rash Neuro Reports no additional complaints Psych Reports no additional complaints Endo Reports no additional complaints Physical exam (Primary Care) Vital Signs: Last Vital Signs Pulse 76 01/20/24 09:33 BP 126/76 01/20/24 09:33 Pulse Ox 98 01/20/24 09:33 Oxygen Delivery Method Room Air 01/20/24 09:33 BMI result Body Mass Index 37.2 Tobacco/Smoking Status: Tobacco use Status Tobacco use date assessed 01/20/24 01/20/24 09:40 Patient Tobacco Use Status Current everyday Tobacco 01/20/24 09:40 Tobacco use type Cigarette 01/20/24 09:40 e-Cigarette/Vaping Use Never Used 01/20/24 09:40 PHQ-9: PHQ-9 Score PHQ-9: Total score 7 01/20/24 09:56 Depression Screening Interpretation: Negative Thrive Assessment: Date of Thrive Assessment Date Thrive assessed 01/20/24 01/20/24 09:47 Currently or been in a relationship where the following occur: no concerns reported Const General: cooperative, comfortable and no acute distress Orientation/consciousness: patient oriented x3 HENMT Head: Yes normocephalic Eyes General: appearance normal, both eyes and all related structures Neck Neck: Yes supple Resp Effort & Inspection: normal respiratory effort, no cough and no stridor Cardio Rhythm: regular rhythm Heart sounds: S1 normal heart sound present and S2 normal heart sound present GI Other: Rectal visual exam revealed large heart hemorrhoids external Skin General skin exam: turgor normal Neuro General: patient oriented x3, tone normal and moves all extremities Extrem Right lower extremity: no edema Left lower extremity: no edema Assessment and Plan Assessment & Plan (1) Essential hypertension: Code(s): I10 - Essential (primary) hypertension (2) External hemorrhoid, bleeding: Code(s): K64.4 - Residual hemorrhoidal skin tags (3) Obesity due to excess calories: Code(s): E66.09 - Other obesity due to excess calories Qualifiers: Body mass index: BMI 38.0-38.9 Obesity classification: adult class 2 (BMI 35 - 39.9) Serious obesity comorbidity presence: with serious comorbidity Qualified Code(s): E66.01 - Morbid (severe) obesity due to excess calories; Z68.38 - Body mass index [BMI] 38.0-38.9, adult (4) Bipolar disorder: Code(s): F31.9 - Bipolar disorder, unspecified Qualifiers: Active/Remission status: in full remission Most recent bipolar episode type: mixed Qualified Code(s): F31.78 - Bipolar disorder, in full remission, most recent episode mixed (5) Pre-diabetes: Code(s): R73.03 - Prediabetes (6) Yeast infection: Code(s): B37.9 - Candidiasis, unspecified (7) Sinus infection: Code(s): J32.9 - Chronic sinusitis, unspecified Qualifiers: Sinusitis location: unspecified location Chronicity: acute Recurrence: recurrent Qualified Code(s): J01.91 - Acute recurrent sinusitis, unspecified Plan Suzie 43-year-old female came in today for an acute problem Patient has had history of hemorrhoids, she has seen Dr. Escalera in the past and surgery was recommended but she could not have that done at that time She is still not ready however she has a follow-up appointment with Dr. Escalera, currently her hemorrhoids have been flared and are very painful She is requesting hydrocortisone suppositories which I have sent for her. She was taking Ozempic injection through weight loss provider in [place] and has done well for the past 2 years She was able to lose over 70 lb with the help of injections until her insurance stopped covering for it She has requesting a letter from me stating that she can benefit from the injections for the She was on 2 blood pressure medications and she was able to stop 1 as she lost some weight Currently she is on hydrochlorothiazide 25 mg, blood pressure is well-controlled with just 1 medication She is due for labs which she will have it done today Patient is also seeing Dr. Ramirez pulmonary and was taking azithromycin to prevent pneumonia Which has caused yeast infection she is requesting Diflucan which I have sent as well Her BMI is 37.2 today she is 216 lb 50 minutes spent in care of this patient including [id number]-qsom, exam, discussing her medical issues Typing a letter for the patient, sending medications, ordering labs, charting Orders: Orders Comprehensive Met. Panel Today I10 - Essential (primary) hypertension Complete Blood Count Auto Diff Today I10 - Essential (primary) hypertension Medications: New hydrocortisone acetate 25 mg MN BID 6 days 12 ea 0RF K64.4 - Residual hemorrhoidal skin tags fluconazole may repeat second dose 72 hrs after first dose if symptoms persist 150 mg PO Q3D 2 doses 2 tabs 0RF hydrochlorothiazide 25 mg PO DAILY 90 tabs 1RF Coding Level of Care Code Est Pt Level 5 (10276) Diagnoses Essential hypertension I10 External hemorrhoid, bleeding K64.4 Class 2 severe obesity due to excess calories with serious comorbidity and body mass index (BMI) of 38.0 to 38.9 in adult E66.01; Z68.38 Body mass index: BMI 38.0-38.9 Obesity classification: adult class 2 (BMI 35 - 39.9) Serious obesity comorbidity presence: with serious comorbidity Bipolar disorder, in full remission, most recent episode mixed F31.78 Active/Remission status: in full remission Most recent bipolar episode type: mixed Pre-diabetes R73.03 Yeast infection B37.9 Acute recurrent sinusitis, unspecified location J01.91 Sinusitis location: unspecified location Chronicity: acute Recurrence: recurrent Additional Codes GABRIELLE-7 Assessment Billing - GABRIELLE-7 Assessment Tool: GABRIELLE-7 Assessment [id number] ([id number])
== END 2024-01-20 10:09 | disposition home or self-care (01) ==
PROVIDERS: PCP Internal Medicine; Visit Provider Internal Medicine
DX: I10 Essential (primary) hypertension (principal); E66.01 Morbid (severe) obesity due to excess calories; F31.78 Bipolar disorder, in full remission, most recent episode mixed; Z68.38 Body mass index [BMI] 38.0-38.9, adult; K64.4 Residual hemorrhoidal skin tags; R73.03 Prediabetes; B37.9 Candidiasis, unspecified; J01.91 Acute recurrent sinusitis, unspecified
CPT/HCPCS: 99215

== ENCOUNTER 2024-01-27 10:08 | Outpatient (AMB) | payer MEDICARE, MEDICAID, SELFPAY ==
[2024-01-27 10:20] VITALS: PULSE 90; O2SAT 98; BMI 37.5
--- NOTE | 2024-01-27 10:20 | A.OFFVIS_ITS ---
Vital Signs 01/27/24 10:20 Height 5 ft 4 in Weight 218 lb 4.122 oz BMI 37.5 Pulse 90 Pulse Source Pulse Oximeter Pulse Oximetry (%) 98 Oxygen Delivery Method Room Air Intake Visit Reasons: Asthma Preschool Assistant Director Required: No Allergies lamotrigine [From LAMICTAL] Allergy (Intermediate, Verified 01/27/24 10:22) RASH Penicillins [PENICILLINS] Allergy (Intermediate, Verified 01/27/24 10:22) RASH prednisone [PREDNISONE] Allergy (Intermediate, Verified 01/27/24 10:22) AGITATION, anger, agitation, agitated mental/emotional status penicillin V Allergy (Unknown, Verified 01/27/24 10:22) Agitated Environmental [hx allergy shot Allergy (Unknown, Uncoded 01/27/24 10:22) Unknown HPI Comments Details: The patient is a 43 y/o woman with tobacco dependency who developed Covid 19 back in March 2021. She was evaluated at [facility] ED and discharged. CXR apperantly with pneumonia. She was treated and released. Required multiple courses of antibiotics and steroids. Ever since then she has had multiple courses of antibiotics and prednisone. She had a repeat CXR in april with minimal basilar changes. She was again sick in November and went to an urgent care and was diagnosed with pneumonia. She was given a course of levaquin and steroids. She is better but still complaining of chest tightness and burning . She is still smoking but she would like to quit. 02/06/2022 the patient is here for a pulmonary follow-up visit. Overall she is feeling a little better. She did try the Symbicort inhaler. However, I gave her thrush therefore she stopped it. She has not required it. She also was prescribed the Wellbutrin for the smoking cessation and she could not tolerate that either. She is going to be looking into hypnosis another alternative to quitting. I believe this is a good option specially since she is motivated to quitting. The overall her breathing has improved. She did have a chest x-ray that we did review and compared to her previous in appears that she is clearing the left basilar opacity area which is reassuring. We also did review the blood work. One of the laboratories was the COVID-19 antibody which is no longer present. I did emphasize to the patient that she no longer has the antibodies low for she is at high risk for getting reinfected with COVID-19. Therefore, the patient is interested in getting vaccinated. She is going to make an irineo ointment in order to do so at her earliest convenience. The patient is going to work on weight loss and exercise and smoking cessation. Will plan to follow-up sometime in the fall with pulmonary function studies. In meantime she can go back to using the Symbicort 1 puff as needed. She needs to make sure she rinses her mouth well ideally with mouthwash after using the Symbicort. 06/06/2022 The patient is here for a sick visit. She was exposed to sick contacts (her children). She started developing a left sided pleuritic pain, mils to moderate in severity. Sometimes feels like icy hot . She has felt like this when she has developed pneumonia. She did have a CXR with interval progression of bilateral nodular opacities. She also has a cough, but non productive. She also had recent bloodwork demonstrating a left shift. 07/24/2022 the patient is here for a pulmonary follow-up visit. Overall the patient is doing better after the course of antibiotics and prednisone. She was again started to feel a chest discomfort and sometimes like a icy hot sensation. She was also having more coughing and more chest congestion of the time. Now she is better although she still complains of some shortness of breath. She still has a hacky cough. We did review her chest x-ray that she had back then. She did have any hazy opacity noted on the left mid lung zone. The patient does smoke cigarettes. Therefore, due to the fact that she continues to be symptomatic and she had an abnormal chest x-ray I will go ahead and order a CT scan of the chest to better assess density. In the meantime the patient will continue to work on smoking cessation. She does have a history of depression so therefore she was told not to use Chantix. She has had a bad reaction to Wellbutrin in the past. she will try nicotine replacement therapy. 11/19/2022 the patient is here for a pulmonary follow-up visit. Recently she called because she was having chest discomfort in addition to cough. She has it been exposed to sick contacts. She started antibiotics and she feels better. Her recent chest x-rays reassuring without any airspace disease. In addition to that, the patient did have a CT scan of the chest this year. Will personally reviewed it. The report mentioned no pulmonary nodules although I do see it nodular density in the right lower lobe measuring 6 mm in size. Patient is high risk because of his smoking history. Will plan to repeat the CT scan in 6 months. In the meantime she knows she needs to quit smoking. She is going to come up without quit contract and she is going to work on cutting down on her cigarettes now and then quit altogether on December 23. Will follow-up in [address] scan. She is going to continue with current respiratory therapy at this time. 05/20/2023 the patient is here for a telehealth visit. She could not make the appointment since she has a sick contact sick family member. The patient overall has been doing better. Back in March she did have worsening productive cough in addition to chest discomfort. Typically how she gets before pneumonia. Therefore, the patient did have an appointment with our office for an urgent visit and she was started on medications for lower respiratory infection. Symptoms did improve. In addition to that we did review her CT scan that she had recently. It appeared that the right lower lobe pulmonary nodule has decreased in size. Otherwise do see bilateral pulmonary nodules some that may be new. Therefore, in view of her smoking history and high risk for cancer the patient should get a repeat CT scan in a year's time. She is also by trying to quit smoking although is very hard for her. She wants to try is more alert nicotine patch to see if she can tolerate it since she could not tolerate the 14 mg. The patient will continue with current respiratory therapy. Will plan to follow-up in 6 months or sooner if she develops any worsening symptoms. 10/07/2023 the patient has a telehealth visit today. The patient overall has been feeling little better recently. She had been on the azithromycin 3 times a week and she was able to avoid a lower respiratory infection pneumonia until sometime in July. She has stopped taking the medication and then her kids became sick and she was exposed to sick contact and started developing respiratory symptoms. She then restart taking the azithromycin she improved. Now more recently she was exposed to again her children's illness and she started developing worsening primarily discomfort that hazy hot sensation that she feels the chest area before she did see pneumonia. The patient recently had blood work. We did reviewed. Her white counts normal and she does have slight decrease in her platelet count but I did reassure her that is a minimal change is not significant at this time. 01/27/2024 the patient is here for pulmonary follow-up visit. Overall she is doing okay. She was exposed to sick contacts. The azithromycin effective in beneficial. The patient is also working on weight loss. She lost about 70 lb using injectables. The patient continues exercises well. She is working on smoking. She was able to quit with the patch but then she went back. She is smoking significantly last time she is motivated to quitting altogether. She will continue working on cutting down. In the meantime the patient did have a CT scan back in 05/14/2023 demonstrating residual thymus tissue. Will go ahead and readdress that sometime in the fall. Lung parenchyma looks good. The patient is a smoker so therefore she is high risk for cancer. [facility] Medical History (Updated 01/27/24 @ 13:09 by Trent Ramirez MD) Thymus hyperplasia Pulmonary nodule Abnormal chest x-ray Chronic bronchitis Asthma Chest pain Morbid obesity Essential hypertension Surgical History History of section Family History Father HTN (hypertension) Hypercholesteremia Mother Migraines Brother No problems noted. Sister No problems noted. Daughter No problems noted. Paternal Grandmother Migraines Daughter Kawasaki disease Daughter Autism spectrum disorder Other Mental health disorder Social History Housing: House Alcohol intake: never Patient Tobacco Use Status: Current everyday Tobacco user Tobacco use type: Cigarette Cigarettes Per Day: 10 Years Smoked: 20 e-Cigarette/Vaping Use: Never Used service: No Current occupational status: unemployed Cognitive needs: No Hearing needs: No Vision needs: No Review of Systems Const Denies chills and Denies fever(s) ENT Denies epistaxis and Denies nasal discharge Card Denies chest pain and Reports dyspnea on exertion Resp Denies chest congestion, Reports cough, Denies hemoptysis, Denies pain on inspiration, Denies pain with cough and Reports dyspnea on exertion GI Denies diarrhea and Denies nausea Skin/Breast Denies rash Neuro Reports no additional complaints, Denies Abnormal speech present and Denies Sensory deficit (Neuro) Psych Reports no additional complaints Endo Reports no additional complaints Physical Exam Vital Signs: Last Vital Signs Pulse 90 01/27/24 10:20 Pulse Ox 98 01/27/24 10:20 Oxygen Delivery Method Room Air 01/27/24 10:20 BMI result Body Mass Index 37.5 Const General: comfortable Orientation/consciousness: patient oriented x3 Resp Effort & Inspection: normal respiratory effort Auscultation: clear to auscultation bilaterally Neuro General: patient oriented x3 Speech: No Abnormal speech present Sensory Exam: No Sensory deficit (Neuro) Quality Reporting (2019) Adult ([facility] 138/10/16/68) Smoking risk assessment performed?: Yes Patient Tobacco Use Status: Current everyday Tobacco user Assessment & Plan Assessment & Plan (1) Asthma: Code(s): J45.909 - Unspecified asthma, uncomplicated Category: Medical Qualifiers: Asthma complication type: uncomplicated Asthma persistence: persistent Asthma severity: severe Qualified Code(s): J45.50 - Severe persistent asthma, uncomplicated (2) Chronic bronchitis: Code(s): J42 - Unspecified chronic bronchitis Category: Medical Qualifiers: Chronic bronchitis type: mucopurulent Qualified Code(s): J41.1 - Mucopurulent chronic bronchitis (3) Smoker: Code(s): F17.200 - Nicotine dependence, unspecified, uncomplicated Category: Social Hx (4) Pulmonary nodule: Comment: better Code(s): R91.1 - Solitary pulmonary nodule Category: Medical (5) 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 Category: Medical Plan continue Azithromycin MWF, needs an EKG smoking cessation; using low dose nicotine patch conitnue symbicort FELISA as needed CT chest 06/2024 F/U 6 months Orders: Orders ECG 12 lead EKG Today J44.9 - Chronic obstructive pulmonary disease, unspecified CT chest wo IV con 07/12/24 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.0 - Persistent hyperplasia of thymus Medications: Refilled budesonide-formoterol 160-4.5 mcg/actuation (Symbicort) 2 puffs inhalation BID 30 days 10.2 grams 11RF J44.9 - Chronic obstructive pulmonary disease, u nspecified azithromycin Take 1 tablet on Friday/Friday/Friday 250 mg PO 3XW 28 days 12 tabs 6RF K21.9 - Gastro-esophageal reflux disease without esophagitis Coding Level of Care Code Est Pt Level 4 (72296) Diagnoses Severe persistent asthma without complication J45.50 Asthma complication type: uncomplicated Asthma persistence: persistent Asthma severity: severe Mucopurulent chronic bronchitis J41.1 Chronic bronchitis type: mucopurulent Smoker F17.200 Pulmonary nodule R91.1 Thymus hyperplasia E32.0 Time Spent (min) 17
== END 2024-01-27 10:37 | disposition home or self-care (01) ==
PROVIDERS: PCP Internal Medicine; Visit Provider Hospitalist
DX: J45.50 Severe persistent asthma, uncomplicated (principal); J41.1 Mucopurulent chronic bronchitis; F17.200 Nicotine dependence, unspecified, uncomplicated; R91.1 Solitary pulmonary nodule; E32.0 Persistent hyperplasia of thymus
CPT/HCPCS: 99214

== ENCOUNTER → 2024-01-27 10:08 | Outpatient (BNVA) | payer MEDICARE, MEDICAID, SELFPAY | PROVIDERS: PCP Internal Medicine; Visit Provider Hospitalist | DX: J45.50 Severe persistent asthma, uncomplicated (principal); J41.1 Mucopurulent chronic bronchitis; R91.1 Solitary pulmonary nodule; E32.0 Persistent hyperplasia of thymus; F17.210 Nicotine dependence, cigarettes, uncomplicated; Z79.899 Other long term (current) drug therapy | CPT/HCPCS: 99212 ==

== ENCOUNTER 2024-02-05 10:25 | Outpatient (AMB) | payer MEDICARE, MEDICAID, SELFPAY ==
--- NOTE | 2024-02-05 10:26 | MHC.OFFVIS ---
Vital Signs 02/05/24 10:30 Height 5 ft 4 in Weight 220 lb 7.396 oz BMI 37.8 BP 125/63 Blood Pressure Location Lt brachial Position Sitting Pulse 92 Intake Visit Reasons: Hemorrhoids Intake Note: Suzie presents in the office as a new patient for hemorroids. CC: She states she has bleeding when she has a BM. She has extreme pain for hours after her bowel movements. She wants to discuss maybe being diagnosed a donut or a numbing cream. She states she has needed the surgery for 5 years now. She ended up having a so she is here to discuss maybe having surgery in Aug. Allergies lamotrigine [From LAMICTAL] Allergy (Intermediate, Verified 02/05/24 10:30) RASH Penicillins [PENICILLINS] Allergy (Intermediate, Verified 02/05/24 10:30) RASH prednisone [PREDNISONE] Allergy (Intermediate, Verified 02/05/24 10:30) AGITATION, anger, agitation, agitated mental/emotional status penicillin V Allergy (Unknown, Verified 02/05/24 10:30) Agitated Environmental [hx allergy shot Allergy (Unknown, Uncoded 02/05/24 10:30) Unknown Medication List - Last Reconciled 02/05/24 by Kranthi Escalera MD albuterol sulfate 90 mcg/actuation 1 puff PO Q4-6H PRN 30 days albuterol sulfate 2.5 mg (3 mL) inhalation Q6H PRN aripiprazole 10 mg PO DAILY azithromycin 250 mg PO 3XW 28 days budesonide-formoterol 160-4.5 mcg/actuation (Symbicort) 2 puffs inhalation BID 30 days nciuiqyufd-twmszhtqdunan-vuga 50-325-40 mg 1 cap PO Q4H PRN 30 days cetirizine 10 mg PO DAILY PRN fluconazole 150 mg PO Q3D 2 doses hydrochlorothiazide 25 mg PO DAILY lorazepam 0.5 mg PO BEDTIME PRN magnesium oxide 400 mg PO BEDTIME PRN mometasone-formoterol 200-5 mcg/actuation (Dulera) 2 puffs inhalation Q12H 30 days nebulizers As directed nicotine 1 patch transdermal Q24H 30 days nystatin 1 appl topical DAILY PRN ondansetron HCl 4 mg PO ONCE PRN 30 days perphenazine 4 mg PO BID semaglutide 1 mg subcut QWEEK HPI HPI Hemorrhoids: Details: 43-year-old female referred for hemorrhoids. She says she had seen me in 2018 because of her large hemorrhoids. She says she was supposed to have hemorrhoid surgery at that time but she became . She says her hemorrhoids have not really been bothering her that much. However, the past 1-2 months, she has been noticing more pain especially with passage of stools. She describes this as like a knife cutting her anus when she passes stools. The pain lingers for about 30 minutes or more She occasionally sees small amounts of blood She denies being constipated. She also says that she still feels her hemorrhoids outside her anus. [facility] Medical History (Updated 02/05/24 @ 10:46 by Kranthi Escalera MD) External hemorrhoids with complication Anal fissure Thymus hyperplasia Pulmonary nodule Abnormal chest x-ray Chronic bronchitis Asthma Chest pain Morbid obesity Essential hypertension Surgical History History of section Family History Father HTN (hypertension) Hypercholesteremia Mother Migraines Brother No problems noted. Sister No problems noted. Daughter No problems noted. Paternal Grandmother Migraines Daughter Kawasaki disease Daughter Autism spectrum disorder Other Mental health disorder Social History Housing: House Alcohol intake: never Patient Tobacco Use Status: Current everyday Tobacco user Tobacco use type: Cigarette Cigarettes Per Day: 10 Years Smoked: 20 e-Cigarette/Vaping Use: Never Used service: No Current occupational status: unemployed Cognitive needs: No Hearing needs: No Vision needs: No Review of Systems Const Denies chills and Denies fever(s) Card Denies chest pain, Denies dyspnea and Denies dyspnea on exertion Resp Denies cough, Denies dyspnea and Denies dyspnea on exertion GI Denies hematochezia and Denies change in bowel habits Denies hematuria Musc Denies back pain and Denies limited range of motion Neuro Denies focal weakness and Denies convulsions Psych Denies depression and Denies mood swings Physical Exam Vital Signs: Last Vital Signs Pulse 92 02/05/24 10:30 BP 125/63 02/05/24 10:30 BMI result Body Mass Index 37.8 Const General: comfortable and no acute distress Orientation/consciousness: patient oriented x3 Neck Neck: Yes no lymphadenopathy Resp Auscultation: clear to auscultation bilaterally Cardio Rhythm: regular rhythm GI Other: Rectal exam shows large external hemorrhoids on both the left and right side, there was note of a small midline posterior fissure on the distal anoderm with retraction of the anus. Digital exam and anoscopy was deferred because of her tenderness. Palpation (GI): Soft to palpation, nontender and no guarding Neuro General: patient oriented x3 Office Procedures Anoscopy [id number] Quality Reporting (2019) Adult ([facility] 13810/16/68) Smoking risk assessment performed?: Yes Patient Tobacco Use Status: Current everyday Tobacco user Assessment & Plan Assessment & Plan (1) Anal fissure: Code(s): K60.2 - Anal fissure, unspecified Category: Medical Plan: She describes pain with passage of stools and examination does show a posterior midline fissure. I will write her for Rectiv for relaxation of the internal sphincters. I told her that she can take this for about 3-4 weeks I instructed her on how to apply this on the anal area. If this does not help, she may require sphincterotomy. (2) External hemorrhoids with complication: Code(s): K64.4 - Residual hemorrhoidal skin tags Category: Medical Plan: She also has large bulky external hemorrhoids. She had been previously scheduled for hemorrhoidectomy bit she had put this off because of the of her daughter 6 years ago. She is not thinking of hemorrhoidectomy at this time until may be after 09/13/2024 because of her schedule. She is welcome to come back to the office to be re-evaluated any time. Medications: Changed From magnesium oxide may hold for loose stools 400 mg PO BEDTIME 30 tabs 6RF 30 days To magnesium oxide may hold for loose stools 400 mg PO BEDTIME PRN Coding Level of Care Code New Pt Level 3 (37107) Diagnoses Anal fissure K60.2 External hemorrhoids with complication K64.4 CPT Codes Details - CPT: 24840-[id number] ([id number])
[2024-02-05 10:30] VITALS: BP 125/63; PULSE 92; BMI 37.8
== END 2024-02-05 10:47 | disposition home or self-care (01) ==
PROVIDERS: PCP Internal Medicine; Visit Provider Surgery
DX: K60.2 Anal fissure, unspecified (principal); K64.4 Residual hemorrhoidal skin tags
CPT/HCPCS: 46600; 99203

== ENCOUNTER → 2024-02-05 10:25 | Outpatient (BNVA) | payer MEDICARE, MEDICAID, SELFPAY | PROVIDERS: PCP Internal Medicine; Visit Provider Surgery | DX: K60.2 Anal fissure, unspecified (principal); K64.4 Residual hemorrhoidal skin tags | CPT/HCPCS: 46600; 99202 ==

== ENCOUNTER 2024-03-30 09:56 | Outpatient (REF) | payer MEDICARE, MEDICAID, SELFPAY ==
[2024-03-30 13:21] LABS: MANUAL DIFF FLAG NO
[2024-03-30 13:51] LABS: Basophils Percent Auto 0.2 % (0-2); Eosinophils Absolute Auto 0.1 X10*3/uL (0.0-0.4); Eosinophils Percent Auto 1.1 % (0-4); Hematocrit 42.9 % (37.0-47.0); Hemoglobin 14.9 g/dl (12.0-16.0); Imm Gran Abs Auto 0.03 X10*3/uL (0.00-0.03); Imm Gran Pct Auto 0.4 % (0.0-0.4); Lymphocytes Absolute Auto 2.2 X10*3/uL (1.2-4.9); Lymphocytes Percent Auto 26.8 % (20-40); Mean Corpuscular HGB Conc 34.7 g/dl (31.0-35.0); Mean Corpuscular Hemoglobin 31.6 pg (27.0-33.0); Mean Corpuscular Volume 90.9 fL (80.0-98.0); Mean Platelet Volume 11.5 fL (9.4-12.3); Monocytes Absolute Auto 0.5 X10*3/uL (0.1-1.2); Monocytes Percent Auto 5.4 % (2-11); Neutrophils Absolute Auto 5.5 x10*3/uL (2.0-8.3); Neutrophils Percent Auto 66.1 % (45-73); Platelet Count 146 X10*3/uL (160-400); Red Blood Count 4.72 X10*6/uL (4.20-5.50); Red Cell Distribution Width 12.2 % (11.0-16.0); White Blood Count 8.4 X10*3/uL (4.8-10.8)
[2024-03-30 13:55] LABS: Alanine Aminotransferase 27 U/L (0-31); Albumin Level 4.4 g/dL (3.5-5.0); Alkaline Phosphatase 73 U/L (39-117); Anion Gap 12 (12-20); Aspartate Amino Transferase 19 U/L (5-31); Bilirubin Total 0.3 mg/dL (0.0-1.0); Blood Urea Nitrogen 10 mg/dL (9-16); Calcium 9.8 mg/dL (8.4-10.2); Carbon Dioxide 26 mmol/L (22-29); Chloride 104 mmol/L (96-108); Estimated Glomerular Filt Rate > 60; Glucose Random 79 mg/dL (60-115); Potassium 3.9 mmol/L (3.3-5.1); Sodium 138 mmol/L (135-145); Total Protein 7.4 g/dL (6.5-8.0)
== END 2024-03-30 09:57 | disposition home or self-care (01) ==
LOC: HO.HMGCLDS 09:56
PROVIDERS: PCP Internal Medicine; Visit Provider Internal Medicine
DX: I10 Essential (primary) hypertension (principal)
CPT/HCPCS: 36415; 80053; 85025

== ENCOUNTER 2024-04-27 10:38 | Outpatient (REF) | payer MEDICARE, MEDICAID, SELFPAY ==
--- NOTE | ~2024-04-27 | CT_ITS ---
EXAMINATION: CT CHEST WITHOUT CONTRAST CLINICAL INFORMATION: Solitary pulmonary nodule COMPARISON: 05/15/2023 TECHNIQUE: Multidetector volumetric CT imaging of the chest was done. Axial MIP volume rendering provided. Sagittal and coronal reformatted images were obtained. This CT examination was performed using dose optimization techniques as appropriate, variously including the following: *Automated exposure control *Adjustment of mA and/or kV according to patient size (this includes techniques or standardized protocols for targeted exams where dose is matched to indication/reason for exam; i.e. extremities or head) *Use of iterative reconstruction technique DLP: 200 mGy-cm FINDINGS: LUNGS: Left upper lobe lingular atelectasis versus scarring. No suspicious pulmonary nodule. Central airways are patent. PLEURA: No pleural effusion. MEDIASTINUM: No cardiomegaly. Aorta and pulmonary artery are normal in caliber. No mediastinal adenopathy. Lack of IV contrast limits evaluation for hilar adenopathy. CORONARY ARTERY CALCIFICATION: No coronary artery calcification appreciated. CHEST WALL/AXILLA: No axillary or internal mammary lymphadenopathy. UPPER ABDOMEN: Unremarkable. OSSEOUS STRUCTURES: Degenerative changes of the spine. CT/CT chest wo IV con IMPRESSION: Left upper lobe lingular atelectasis versus scarring. No suspicious pulmonary nodule. Electronically signed by: Madeline Day MD 05/10/2024 08:09 PM EDT
== END 2024-04-27 10:39 | disposition home or self-care (01) ==
LOC: HO.CT 10:38
PROVIDERS: PCP Internal Medicine; Visit Provider Hospitalist
DX: R91.1 Solitary pulmonary nodule (principal)
CPT/HCPCS: 71250

== ENCOUNTER 2024-05-21 10:37 | Outpatient (AMB) | payer MEDICARE, MEDICAID, SELFPAY ==
[2024-05-21 10:39] VITALS: BP 132/84; PULSE 71; O2SAT 96; BMI 40.2
--- NOTE | 2024-05-21 10:39 | A.OFFPC_ITS ---
Vital Signs 05/21/24 10:39 Height 5 ft 4 in Weight 234 lb BMI 40.2 BP 132/84 Blood Pressure Location Rt brachial Position Sitting Pulse 71 Pulse Source Pulse Oximeter Pulse Oximetry (%) 96 Oxygen Delivery Method Room Air Intake Visit Reasons: Regular Visit Allergies lamotrigine [From LAMICTAL] Allergy (Intermediate, Verified 05/21/24 10:39) RASH Penicillins [PENICILLINS] Allergy (Intermediate, Verified 05/21/24 10:39) RASH prednisone [PREDNISONE] Allergy (Intermediate, Verified 05/21/24 10:39) AGITATION, anger, agitation, agitated mental/emotional status penicillin V Allergy (Unknown, Verified 05/21/24 10:39) Agitated Environmental [hx allergy shot Allergy (Unknown, Uncoded 02/05/24 10:30) Unknown Medication List - Last Reconciled 05/21/24 by Shruthi Castro MD albuterol sulfate 90 mcg/actuation 1 puff PO Q4-6H PRN 30 days albuterol sulfate 2.5 mg (3 mL) inhalation Q6H PRN aripiprazole 10 mg PO DAILY azithromycin 250 mg PO 3XW 28 days budesonide-formoterol 160-4.5 mcg/actuation (Symbicort) 2 puffs inhalation BID 30 days vrlnxokivv-cmlgyxebgixea-vodg 50-325-40 mg 1 cap PO Q4H PRN 30 days cetirizine 10 mg PO DAILY PRN docusate sodium (Colace) 100 mg PO BID [donut seat cushion As directed] hydrochlorothiazide 25 mg PO DAILY lidocaine 4% 1 appl topical BID lorazepam 0.5 mg PO BEDTIME PRN mometasone-formoterol 200-5 mcg/actuation (Dulera) 2 puffs inhalation Q12H 30 days nebulizers As directed nystatin 1 appl topical DAILY PRN ondansetron HCl 4 mg PO ONCE PRN 30 days perphenazine 4 mg PO BID semaglutide 1 mg subcut QWEEK Tobacco use date assessed: 05/21/24 Dental Screening Dental Screen Date: 05/21/24 Did you have a dental visit in the last 12 months?: Yes Did you have a dental problem in the last 6 months where you did not have access to dental care?: No Was dental information given to patient?: Patient has dentist HPI Regular Visit HPI Details Patient is a 43-year-old female came in today to talk about feeling of inflammation in her throat Patient recently had a CT scan through [facility] Dr. Ramirez [facility] Which did not show any pneumonia She is also on a low-dose azithromycin Patient also suffers from GERD On examination today her lungs have mild wheezing at the bases I would recommend to discuss it further with Dr. Ramirez She is requesting a refill on Diflucan, patient is on Ozempic and gets yeast infection off and on She also would like to have a script of Zofran that she take once or twice a month as needed Labs were done in March reviewed Kidney function liver functions intact CBC showed no anemia white count within normal limit Blood pressure is stable Allergies stable Only medication from PCP office is allergy medicine, hydrochlorothiazide 25 mg Zofran Diflucan as needed and nystatin topical She is established with Dr. Ramirez [facility] all inhalers through their office She is seeing weight care management assistant [place] and is taking semaglutide through them Psychiatrist for her psychiatric needs She has an appointment in June for physical exam [facility], [facility] Medical History External hemorrhoids with complication Anal fissure Thymus hyperplasia Pulmonary nodule Abnormal chest x-ray Chronic bronchitis Asthma Chest pain Morbid obesity Essential hypertension Surgical History History of section Family History Father HTN (hypertension) Hypercholesteremia Mother Migraines Brother No problems noted. Sister No problems noted. Daughter No problems noted. Paternal Grandmother Migraines Daughter Kawasaki disease Daughter Autism spectrum disorder Other Mental health disorder Social History Housing: House Alcohol intake: never Patient Tobacco Use Status: Current everyday Tobacco user Tobacco use type: Cigarette Cigarettes Per Day: 10 Years Smoked: 20 e-Cigarette/Vaping Use: Never Used service: No Current occupational status: unemployed Cognitive needs: No Hearing needs: No Vision needs: No Questionnaire PHQ-9 Over the last 2 weeks, how often have you been bothered by any of the following problems? 1. Little interest or pleasure in doing things: several days 2. Feeling down, depressed, or hopeless: several days 3. Trouble falling or staying asleep, or sleeping too much: not at all 4. Feeling tired or having little energy: nearly every day 5. Poor appetite or overeating: not at all 6. Feeling bad about yourself - or that you are a failure or have let yourself or your family down: not at all 7. Trouble concentrating on things, such as reading the newspaper or watching television: not at all 8. Moving or speaking so slowly that other people could have noticed. Or the opposite - being so fidgety or restless that you have been moving around a lot more than usual: not at all 9. Thoughts that you would be better off or of hurting yourself in some way: not at all Total score: 5 Depression Screening Interpretation: Negative Depression Screening Done: Yes 23180 - PHQ-9 Billing: Yes Source: Developed by Drs. Estuardo Galindo, Miryam Pino, Joe Chakraborty and colleagues, with an educational roxie from [employer]. Thrive Questionnaire Date Thrive assessed: 05/21/24 I am a: Patient What is your living situation today?: I have a steady place to live Within the past 12 months, did the food you bought not last and you didn't have the money to get more?: Never true Within the past 12 months, did you worry whether your food would run out before you got money to buy more?: Never true Do you have trouble paying for medicines?: No Do you have trouble getting transportation to medical appointments?: No Do you have trouble paying your heating and electricity bill?: No Do you have trouble taking care of your child, family member or friend?: No Do you have trouble with day-to-day activities such as bathing, preparing meals, shopping, managing finances, etc.?: No Are you currently unemployed and looking for a job?: No Are you interested in more education?: No Please select the resources that you would like help with: None Currently or been in a relationship where the following occur: No concerns reported THRIVE Score: 0 AUDIT C Alcohol Use Questionnaire (AUDIT-C) 1. How often do you have a drink containing alcohol?: Never 3. How often do you have six or more drinks on one occasion?: Never Total Score: 0 Score Reviewed/Action Taken: Yes GABRIELLE-7 AMB Questionnaire GABRIELLE-7 Date GABRIELLE - 7 assessed: 05/21/24 Feeling nervous, anxious, or on edge: 1 = Several days Not being able to stop or control worryin = Several days Worrying too much about different things: 1 = Several days Trouble relaxin = Several days Being so restless that it is hard to sit still: 0 = Not at all Becoming easily annoyed or irritable: 1 = Several days Feeling afraid as if something awful might happen: 1 = Several days Total GABRIELLE-7 score (0-4 normal; 5-9 mild; 10-14 moderate; 15-21 severe): 6 Source: Developed by Drs. Estuardo Galindo, Miryam Pino, Joe Chakraborty and colleagues, with an educational roxie from [employer]. GABRIELLE-7 Assessment Billing GABRIELLE-7 Assessment Tool: GABRIELLE-7 Assessment 31122 Review of Systems Const Denies chills and Denies fever(s) ENT Denies epistaxis and Denies nasal discharge Card Denies chest pain Resp Denies hemoptysis GI Denies diarrhea Skin/Breast Denies rash Neuro Reports no additional complaints Psych Reports no additional complaints Endo Reports no additional complaints Physical exam (Primary Care) Vital Signs: Last Vital Signs Pulse 71 05/21/24 10:39 BP 132/84 05/21/24 10:39 Pulse Ox 96 05/21/24 10:39 Oxygen Delivery Method Room Air 05/21/24 10:39 BMI result Body Mass Index 40.2 Tobacco/Smoking Status: Tobacco use Status Tobacco use date assessed 05/21/24 05/21/24 10:46 Patient Tobacco Use Status Current everyday Tobacco 05/21/24 10:39 Tobacco use type Cigarette 05/21/24 10:39 e-Cigarette/Vaping Use Never Used 05/21/24 10:39 PHQ-9: PHQ-9 Score PHQ-9: Total score 5 05/21/24 10:46 Depression Screening Interpretation: Negative Thrive Assessment: Date of Thrive Assessment Date Thrive assessed 05/21/24 05/21/24 10:46 Currently or been in a relationship where the following occur: No concerns reported Const General: cooperative, comfortable and no acute distress Orientation/consciousness: patient oriented x3 HENMT Head: Yes normocephalic Eyes General: appearance normal, both eyes and all related structures Neck Neck: Yes supple Resp Other: Mild wheezing at the bases both side posteriorly Effort & Inspection: normal respiratory effort, no cough and no stridor Cardio Rhythm: regular rhythm Heart sounds: S1 normal heart sound present and S2 normal heart sound present Skin General skin exam: turgor normal Neuro General: patient oriented x3, tone normal and moves all extremities Extrem Right lower extremity: no edema Left lower extremity: no edema Assessment and Plan Assessment & Plan (1) Essential hypertension: Code(s): I10 - Essential (primary) hypertension (2) Obesity due to excess calories: Code(s): E66.09 - Other obesity due to excess calories Qualifiers: Obesity classification: adult class 2 (BMI 35 - 39.9) Serious obesity comorbidity presence: with serious comorbidity Body mass index: BMI 38.0-38.9 Qualified Code(s): E66.01 - Morbid (severe) obesity due to excess calories; Z68.38 - Body mass index [BMI] 38.0-38.9, adult (3) Bipolar disorder: Code(s): F31.9 - Bipolar disorder, unspecified Qualifiers: Active/Remission status: in full remission Most recent bipolar episode type: mixed Qualified Code(s): F31.78 - Bipolar disorder, in full remission, most recent episode mixed (4) Pre-diabetes: Code(s): R73.03 - Prediabetes (5) Yeast infection: Code(s): B37.9 - Candidiasis, unspecified (6) Depression, major, severe recurrence: Code(s): F33.2 - Major depressive disorder, recurrent severe without psychotic features Qualifiers: Psychotic features: without psychotic features Qualified Code(s): F33.2 - Major depressive disorder, recurrent severe without psychotic features (7) Chronic nausea: Code(s): R11.0 - Nausea (8) Chronic bronchitis: Code(s): J42 - Unspecified chronic bronchitis Qualifiers: Chronic bronchitis type: mucopurulent Qualified Code(s): J41.1 - Mucopurulent chronic bronchitis Plan Patient is a 43-year-old female came in today to talk about feeling of inflammation in her throat Patient recently had a CT scan through [facility] specialist Dr. Ramirez [facility] Which did not show any pneumonia She is also on a low-dose azithromycin Patient also suffers from GERD On examination today her lungs have mild wheezing at the bases I would recommend to discuss it further with Dr. Ramirez She is requesting a refill on Diflucan, patient is on Ozempic and gets yeast infection off and on She also would like to have a script of Zofran that she take once or twice a month as needed Labs were done in March reviewed Kidney function liver functions intact CBC showed no anemia white count within normal limit Blood pressure is stable Allergies stable Only medication from PCP office is allergy medicine, hydrochlorothiazide 25 mg Zofran Diflucan as needed and nystatin topical She is established with Dr. Ramirez [facility] all inhalers through their office She is seeing weight care management assistant [place] and is taking semaglutide through them Psychiatrist for her psychiatric needs She has an appointment in June for physical exam Medications: Refilled fluconazole may repeat second dose 72 hrs after first dose if symptoms persist 150 mg PO Q3D 2 doses 2 tabs 1RF ondansetron HCl 4 mg PO ONCE 30 days PRN 30 tabs 0RF nausea and vomiting R11.0 - Nausea Coding Level of Care Code Est Pt Level 4 (91913) Complex EM visit Add On G2211 Diagnoses Essential hypertension I10 Class 2 severe obesity due to excess calories with serious comorbidity and body mass index (BMI) of 38.0 to 38.9 in adult E66.01; Z68.38 Obesity classification: adult class 2 (BMI 35 - 39.9) Serious obesity comorbidity presence: with serious comorbidity Body mass index: BMI 38.0-38.9 Bipolar disorder, in full remission, most recent episode mixed F31.78 Active/Remission status: in full remission Most recent bipolar episode type: mixed Pre-diabetes R73.03 Yeast infection B37.9 Severe episode of recurrent major depressive disorder, without psychotic features F33.2 Psychotic features: without psychotic features Chronic nausea R11.0 Mucopurulent chronic bronchitis J41.1 Chronic bronchitis type: mucopurulent Additional Codes GABRIELLE-7 Assessment Billing - GABRIELLE-7 Assessment Tool: GABRIELLE-7 Assessment 10339 ([id number])
== END 2024-05-21 13:21 | disposition home or self-care (01) ==
PROVIDERS: PCP Internal Medicine; Visit Provider Internal Medicine
DX: J41.1 Mucopurulent chronic bronchitis (principal); E66.01 Morbid (severe) obesity due to excess calories; F31.78 Bipolar disorder, in full remission, most recent episode mixed; Z68.38 Body mass index [BMI] 38.0-38.9, adult; I10 Essential (primary) hypertension; R73.03 Prediabetes; B37.9 Candidiasis, unspecified; R11.0 Nausea

== ENCOUNTER → 2024-05-21 10:37 | Outpatient (BNVA) | payer MEDICARE, MEDICAID, SELFPAY | PROVIDERS: PCP Internal Medicine; Visit Provider Internal Medicine | DX: I10 Essential (primary) hypertension (principal); E66.01 Morbid (severe) obesity due to excess calories; Z68.38 Body mass index [BMI] 38.0-38.9, adult; F31.78 Bipolar disorder, in full remission, most recent episode mixed; R73.03 Prediabetes; B37.9 Candidiasis, unspecified; R11.0 Nausea; J41.1 Mucopurulent chronic bronchitis; Z71.3 Dietary counseling and surveillance | CPT/HCPCS: 96127; 99212 ==

== ENCOUNTER 2024-08-03 10:06 | Outpatient (AMB) | payer MEDICARE, MEDICAID, SELFPAY ==
[2024-08-03 10:08] VITALS: BP 128/78; PULSE 95; O2SAT 99
--- NOTE | 2024-08-03 10:08 | MHC.OFFVIS ---
Vital Signs 08/03/24 10:08 Weight 229 lb 4.492 oz BP 128/78 Blood Pressure Location Rt brachial Position Sitting Pulse 95 Pulse Source Pulse Oximeter Pulse Oximetry (%) 99 Oxygen Delivery Method Room Air Intake Visit Reasons: Asthma Allergies lamotrigine [From LAMICTAL] Allergy (Intermediate, Verified 08/03/24 10:12) RASH Penicillins [PENICILLINS] Allergy (Intermediate, Verified 08/03/24 10:12) RASH prednisone [PREDNISONE] Allergy (Intermediate, Verified 08/03/24 10:12) AGITATION, anger, agitation, agitated mental/emotional status penicillin V Allergy (Unknown, Verified 08/03/24 10:12) Agitated Environmental [hx allergy shot Allergy (Unknown, Uncoded 08/03/24 10:12) Unknown Medication List - Last Reconciled 08/03/24 by Inna Garcia, BEATA albuterol sulfate 90 mcg/actuation 1 puff PO Q4-6H PRN 30 days albuterol sulfate 2.5 mg (3 mL) inhalation Q6H PRN aripiprazole 10 mg PO DAILY azithromycin 250 mg PO 3XW 28 days budesonide-formoterol 160-4.5 mcg/actuation (Symbicort) 2 puffs inhalation BID 30 days fdsofksxfc-gjonesonwappo-thtl 50-325-40 mg 1 cap PO Q4H PRN 30 days cetirizine 10 mg PO DAILY PRN docusate sodium (Colace) 100 mg PO BID [donut seat cushion As directed] fluconazole 150 mg PO Q3D 2 doses hydrochlorothiazide 25 mg PO DAILY lidocaine 4% 1 appl topical BID lorazepam 0.5 mg PO BEDTIME PRN nebulizers As directed nystatin 1 appl topical DAILY PRN ondansetron HCl 4 mg PO ONCE PRN 30 days perphenazine 4 mg PO BID semaglutide 1 mg subcut QWEEK HPI Comments Details: The patient is a 44 y/o woman with tobacco dependency who developed Covid 19 back in March 2021. She was evaluated at [facility] ED and discharged. CXR apperantly with pneumonia. She was treated and released. Required multiple courses of antibiotics and steroids. Ever since then she has had multiple courses of antibiotics and prednisone. She had a repeat CXR in april with minimal basilar changes. She was again sick in November and went to an urgent care and was diagnosed with pneumonia. She was given a course of levaquin and steroids. She is better but still complaining of chest tightness and burning . She is still smoking but she would like to quit. 02/06/2022 the patient is here for a pulmonary follow-up visit. Overall she is feeling a little better. She did try the Symbicort inhaler. However, I gave her thrush therefore she stopped it. She has not required it. She also was prescribed the Wellbutrin for the smoking cessation and she could not tolerate that either. She is going to be looking into hypnosis another alternative to quitting. I believe this is a good option specially since she is motivated to quitting. The overall her breathing has improved. She did have a chest x-ray that we did review and compared to her previous in appears that she is clearing the left basilar opacity area which is reassuring. We also did review the blood work. One of the laboratories was the COVID-19 antibody which is no longer present. I did emphasize to the patient that she no longer has the antibodies low for she is at high risk for getting reinfected with COVID-19. Therefore, the patient is interested in getting vaccinated. She is going to make an appointment in order to do so at her earliest convenience. The patient is going to work on weight loss and exercise and smoking cessation. Will plan to follow-up sometime in the fall with pulmonary function studies. In meantime she can go back to using the Symbicort 1 puff as needed. She needs to make sure she rinses her mouth well ideally with mouthwash after using the Symbicort. 06/06/2022 The patient is here for a sick visit. She was exposed to sick contacts (her children). She started developing a left sided pleuritic pain, mils to moderate in severity. Sometimes feels like icy hot . She has felt like this when she has developed pneumonia. She did have a CXR with interval progression of bilateral nodular opacities. She also has a cough, but non productive. She also had recent bloodwork demonstrating a left shift. 07/24/2022 the patient is here for a pulmonary follow-up visit. Overall the patient is doing better after the course of antibiotics and prednisone. She was again started to feel a chest discomfort and sometimes like a icy hot sensation. She was also having more coughing and more chest congestion of the time. Now she is better although she still complains of some shortness of breath. She still has a hacky cough. We did review her chest x-ray that she had back then. She did have any hazy opacity noted on the left mid lung zone. The patient does smoke cigarettes. Therefore, due to the fact that she continues to be symptomatic and she had an abnormal chest x-ray I will go ahead and order a CT scan of the chest to better assess density. In the meantime the patient will continue to work on smoking cessation. She does have a history of depression so therefore she was told not to use Chantix. She has had a bad reaction to Wellbutrin in the past. she will try nicotine replacement therapy. 11/19/2022 the patient is here for a pulmonary follow-up visit. Recently she called because she was having chest discomfort in addition to cough. She has it been exposed to sick contacts. She started antibiotics and she feels better. Her recent chest x-rays reassuring without any airspace disease. In addition to that, the patient did have a CT scan of the chest this year. Will personally reviewed it. The report mentioned no pulmonary nodules although I do see it nodular density in the right lower lobe measuring 6 mm in size. Patient is high risk because of his smoking history. Will plan to repeat the CT scan in 6 months. In the meantime she knows she needs to quit smoking. She is going to come up without quit contract and she is going to work on cutting down on her cigarettes now and then quit altogether on December 23. Will follow-up in [address] scan. She is going to continue with current respiratory therapy at this time. 05/20/2023 the patient is here for a telehealth visit. She could not make the appointment since she has a sick contact sick family member. The patient overall has been doing better. Back in March she did have worsening productive cough in addition to chest discomfort. Typically how she gets before pneumonia. Therefore, the patient did have an appointment with our office for an urgent visit and she was started on medications for lower respiratory infection. Symptoms did improve. In addition to that we did review her CT scan that she had recently. It appeared that the right lower lobe pulmonary nodule has decreased in size. Otherwise do see bilateral pulmonary nodules some that may be new. Therefore, in view of her smoking history and high risk for cancer the patient should get a repeat CT scan in a year's time. She is also by trying to quit smoking although is very hard for her. She wants to try is more alert nicotine patch to see if she can tolerate it since she could not tolerate the 14 mg. The patient will continue with current respiratory therapy. Will plan to follow-up in 6 months or sooner if she develops any worsening symptoms. 10/07/2023 the patient has a telehealth visit today. The patient overall has been feeling little better recently. She had been on the azithromycin 3 times a week and she was able to avoid a lower respiratory infection pneumonia until sometime in July. She has stopped taking the medication and then her kids became sick and she was exposed to sick contact and started developing respiratory symptoms. She then restart taking the azithromycin she improved. Now more recently she was exposed to again her children's illness and she started developing worsening primarily discomfort that hazy hot sensation that she feels the chest area before she did see pneumonia. The patient recently had blood work. We did reviewed. Her white counts normal and she does have slight decrease in her platelet count but I did reassure her that is a minimal change is not significant at this time. 01/27/2024 the patient is here for pulmonary follow-up visit. Overall she is doing okay. She was exposed to sick contacts. The azithromycin effective in beneficial. The patient is also working on weight loss. She lost about 70 lb using injectables. The patient continues exercises well. She is working on smoking. She was able to quit with the patch but then she went back. She is smoking significantly last time she is motivated to quitting altogether. She will continue working on cutting down. In the meantime the patient did have a CT scan back in 05/14/2023 demonstrating residual thymus tissue. Will go ahead and readdress that sometime in the fall. Lung parenchyma looks good. The patient is a smoker so therefore she is high risk for cancer. 08/03/2024 the patient is here for pulmonary follow-up visit. Overall the patient has been doing fair. She has had multiple respiratory illnesses. She had been taking the azithromycin 3 times a week with good effect although she did stop it because of GI adverse effects. And then developed worsening respiratory complaints. She went to her primary care doctor and then to urgent care. She was diagnosed with sinusitis and she was given a course of doxycycline. She was also given prednisone. She did feel better and she is feeling better although not completely. She is concerned about potential side effects from being on azithromycin long-term. At this point the azithromycin is more of an anti-inflammatory medication using for chronic bronchitis. Explained to her though that likely when she stopped smoking the inflammation will decrease and she will no longer need to be on azithromycin. She still has urinary can fullness. There is some redness of the tympanic membrane. Likely mycoplasma. Will go ahead and treated with azithromycin 500 mg for 5 days. In then she can go back on the azithromycin 250 2 to 3 times a week. She is going to work on tobacco cessation. Clinical consider Chantix whenever is okay by her psychiatrist. Also she did have a CT scan of the chest that I personally reviewed. Has not been officially read by has a minimal scarring of the lungs likely from passive infections but otherwise no significant findings. She does describe some difficulty swallowing at times and this may be contributing to her ongoing infection. Will go ahead and request a barium swallo.w FOR[facility]LY [facility], [facility] Medical History External hemorrhoids with complication Anal fissure Thymus hyperplasia Pulmonary nodule Abnormal chest x-ray Chronic bronchitis Asthma Chest pain Morbid obesity Essential hypertension Surgical History History of section Family History Father HTN (hypertension) Hypercholesteremia Mother Migraines Brother No problems noted. Sister No problems noted. Daughter No problems noted. Paternal Grandmother Migraines Daughter Kawasaki disease Daughter Autism spectrum disorder Other Mental health disorder Social History Housing: House Alcohol intake: never Patient Tobacco Use Status: Current everyday Tobacco user Tobacco use type: Cigarette Cigarettes Per Day: 10 Years Smoked: 20 e-Cigarette/Vaping Use: Never Used service: No Current occupational status: unemployed Cognitive needs: No Hearing needs: No Vision needs: No Review of Systems Const Denies chills and Denies fever(s) ENT Reports dysphagia, Denies epistaxis and Denies nasal discharge Card Denies chest pain and Reports dyspnea on exertion Resp Denies chest congestion, Reports cough, Denies hemoptysis, Denies pain on inspiration, Denies pain with cough and Reports dyspnea on exertion GI Reports dysphagia, Denies diarrhea and Denies nausea Skin/Breast Denies rash Neuro Reports no additional complaints, Denies Abnormal speech present and Denies Sensory deficit (Neuro) Psych Reports no additional complaints Endo Reports no additional complaints Physical Exam Vital Signs: Last Vital Signs Pulse 95 08/03/24 10:08 BP 128/78 08/03/24 10:08 Pulse Ox 99 08/03/24 10:08 Oxygen Delivery Method Room Air 08/03/24 10:08 Const General: comfortable Orientation/consciousness: patient oriented x3 HEENT Ears: TM abnormal erythematous Neck Neck: Yes normal visual inspection, Yes full ROM and Yes no lymphadenopathy Chest Chest palpation & inspection: normal inspection of the chest Resp Effort & Inspection: normal respiratory effort Auscultation: diminished lung sounds Cardio Rate: regular rate Rhythm: regular rhythm Heart sounds: S1 normal heart sound present and S2 normal heart sound present GI Palpation (GI): Soft to palpation and nontender Auscultation: normal bowel sounds General: Yes no CVA tenderness Back/Spine/Pelvis Back: no CVA tenderness Skin General skin exam: rashes and/or lesions noted Neuro General: patient oriented x3 Speech: No Abnormal speech present Sensory Exam: No Sensory deficit (Neuro) Quality Reporting (2019) Adult ([facility] ) Smoking risk assessment performed?: Yes Patient Tobacco Use Status: Current everyday Tobacco user Assessment & Plan Assessment & Plan (1) Asthma: Code(s): J45.909 - Unspecified asthma, uncomplicated Category: Medical Qualifiers: Asthma complication type: uncomplicated Asthma persistence: persistent Asthma severity: severe Qualified Code(s): J45.50 - Severe persistent asthma, uncomplicated (2) Chronic bronchitis: Code(s): J42 - Unspecified chronic bronchitis Category: Medical Qualifiers: Chronic bronchitis type: mucopurulent Qualified Code(s): J41.1 - Mucopurulent chronic bronchitis (3) Smoker: Code(s): F17.200 - Nicotine dependence, unspecified, uncomplicated Category: Social Hx (4) Pulmonary nodule: Comment: better Code(s): R91.1 - Solitary pulmonary nodule Category: Medical (5) 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 Category: Medical Plan continue Azithromycin MWF, needs an EKG smoking cessation; considering chantix conitnue symbicort FELISA as needed barium swallow F/U 3-4 months Orders: Orders [place] barium swallow Today K21.9 - Gastro-esophageal reflux disease without esophagitis Medications: New azithromycin 500 mg PO DAILY 5 tabs 0RF 5 days Coding Level of Care Code Est Pt Level 4 (81840) Complex EM visit Add On G2211 Diagnoses Severe persistent asthma without complication J45.50 Asthma complication type: uncomplicated Asthma persistence: persistent Asthma severity: severe Mucopurulent chronic bronchitis J41.1 Chronic bronchitis type: mucopurulent Smoker F17.200 Pulmonary nodule R91.1 Thymus hyperplasia E32.0 Time Spent (min) 18
== END 2024-08-03 10:37 | disposition home or self-care (01) ==
PROVIDERS: PCP Internal Medicine; Visit Provider Hospitalist
DX: J45.50 Severe persistent asthma, uncomplicated (principal); J41.1 Mucopurulent chronic bronchitis; F17.200 Nicotine dependence, unspecified, uncomplicated; R91.1 Solitary pulmonary nodule; E32.0 Persistent hyperplasia of thymus
CPT/HCPCS: 99214; G2211

== ENCOUNTER → 2024-08-03 10:06 | Outpatient (BNVA) | payer MEDICARE, MEDICAID, SELFPAY | PROVIDERS: PCP Internal Medicine; Visit Provider Hospitalist | DX: J45.50 Severe persistent asthma, uncomplicated (principal); J41.1 Mucopurulent chronic bronchitis; R91.1 Solitary pulmonary nodule; E32.0 Persistent hyperplasia of thymus; F17.210 Nicotine dependence, cigarettes, uncomplicated | CPT/HCPCS: 99212 ==

== ENCOUNTER 2024-11-25 10:54 | Outpatient (AMB) | payer MEDICARE, MEDICAID, SELFPAY ==
[2024-11-25 10:58] VITALS: BP 126/90; BMI 39.5
--- NOTE | 2024-11-25 10:58 | A.OFFVIS_ITS ---
Vital Signs 11/25/24 10:58 Height 5 ft 4 in Weight 230 lb BMI 39.5 BP 126/90 H Blood Pressure Location Rt brachial Position Sitting Intake Visit Reasons: Follow up Intake Note: Patient presents follow up Migraine Allergies lamotrigine [From LAMICTAL] Allergy (Intermediate, Verified 11/25/24 11:00) RASH Penicillins [PENICILLINS] Allergy (Intermediate, Verified 11/25/24 11:00) RASH prednisone [PREDNISONE] Allergy (Intermediate, Verified 11/25/24 11:00) AGITATION, anger, agitation, agitated mental/emotional status penicillin V Allergy (Unknown, Verified 11/25/24 11:00) Agitated Environmental [hx allergy shot Allergy (Unknown, Uncoded 11/25/24 11:00) Unknown Medication List - Last Reconciled 11/25/24 by ELIZABETH Cook albuterol sulfate 2.5 mg (3 mL) inhalation Q6H PRN albuterol sulfate 90 mcg/actuation 1 puff PO Q4-6H PRN 30 days aripiprazole 10 mg PO DAILY azithromycin 500 mg PO DAILY 5 days azithromycin 250 mg PO 3XW 28 days budesonide-formoterol 160-4.5 mcg/actuation (Symbicort) 2 puffs inhalation BID 30 days sviomoqtme-yzrzgkpnaaece-rslm 50-325-40 mg 1 cap PO Q4H PRN 30 days cetirizine 10 mg PO DAILY PRN docusate sodium (Colace) 100 mg PO BID [donut seat cushion As directed] fluconazole 150 mg PO Q3D 2 doses hydrochlorothiazide 25 mg PO DAILY lidocaine 4% 1 appl topical BID lorazepam 0.5 mg PO BEDTIME PRN nebulizers As directed nystatin 1 appl topical DAILY PRN ondansetron HCl 4 mg PO ONCE PRN 30 days perphenazine 4 mg PO BID semaglutide 1 mg subcut QWEEK HPI Comments Details: 44-yr-old female presents for f/u migraine and ? TD. Pt would like to discuss involuntary oral-jaw movements- jaw will swing, jaw tremor, lingual movements/tremor, and submental region twitching, movements are bothersome to her, causes social anxiety. Patient was recently started Cogentin by her psychiatric provider which has helped some, however psychiatry asked her to discuss this further with us. Patient states in the past from a [place] area clinic, she was treated with Austedo and Ingrezza of unknown strength/dose, and thought maybe she had side effects, but could not be certain what they were. However, she is open to revisiting these, as these symptoms are becoming more bothersome to her. Pt reports she started on antipsychotics tx's around the age of 19-20. She has been on aripiprazole, perphenazine, and lorazepam- over the last 16 years. Prior to starting perphenazine, she was taking aripiprazole at a higher dose 20-25mg- she was making involuntary abnormal sounds and facial ticking so dose was decreased and she was started on the pherphenazine. Pt reports her migraines are doing very well, typically will have onset of migraine a/w menstrual spotting. She never started aimovig- was nervous to try it and headaches improved. Using Fioricet sparingly which helps. Baseline headache characteristics: Severe, usually left throbbing, piercing pain, in right side or holocranial, a/w Photophobia, phonophobia, osmophobia, allodynia, tiredness, dizziness.And Postdrome of residual hang over sensation PFSH Medical History External hemorrhoids with complication Anal fissure Thymus hyperplasia Pulmonary nodule Abnormal chest x-ray Chronic bronchitis Asthma Chest pain Morbid obesity Essential hypertension Surgical History History of section Family History Father HTN (hypertension) Hypercholesteremia Mother Migraines Brother No problems noted. Sister No problems noted. Daughter No problems noted. Paternal Grandmother Migraines Daughter Kawasaki disease Daughter Autism spectrum disorder Other Mental health disorder Social History Housing: House Alcohol intake: never Patient Tobacco Use Status: Current everyday Tobacco user Tobacco use type: Cigarette Cigarettes Per Day: 10 Years Smoked: 20 e-Cigarette/Vaping Use: Never Used service: No Current occupational status: unemployed Cognitive needs: No Hearing needs: No Vision needs: No Physical Exam Vital Signs: Last Vital Signs BP 126/90 H 11/25/24 10:58 BMI result Body Mass Index 39.5 Const Orientation/consciousness: patient oriented x3 Resp Effort & Inspection: normal respiratory effort and able to speak in complete sentences Neuro Other: Mild intermittent chin and lingual tremor. Mild right cheek twitching upon smile. No dyskinesia noted in either BUE or BLE. FFM and Foot taps- intact. No tone appreciated in BLE. Stands easily, good stride, steady gait. General: patient oriented x3 Cranial nerves: Yes CN's II-XII intact bilaterally Cognition (Neuro): normal cognition Gait exam (Neuro): Normal gait present Motor exam (neuro): 5/5 motor strength present throughout Deep tendon reflexes (DTR's): Right triceps reflex intensity grade: 2+, Left triceps reflex intensity grade: 2+, Rt Biceps (C5, C6): 2+, Left biceps reflex intensity grade: 2+, Right brachioradialis reflex intensity grade: 2+, Left brachioradialis reflex intensity grade: 2+, Right patellar reflex intensity grade: 2+ and Left patellar reflex intensity grade: 2+ Psych Appearance: grossly normal Mental Status: mental status grossly normal Speech and movement: Clear speech present Affect: normal affect Attitude: cooperative Thought process: Normal thought process present Assessment & Plan Assessment & Plan (1) Tardive dyskinesia: Comment: chronic h/o neuroleptic tx use- Risperdal, then aripiprazole, perphenazine- however mood is well-controlled on her current psychiatric tx regimen. Code(s): G24.01 - Drug induced subacute dyskinesia Category: Medical (2) Migraine without aura: Code(s): G43.009 - Migraine without aura, not intractable, without status migrainosus Category: Medical Qualifiers: Status migrainosus presence: without status migrainosus Intractability: intractable Qualified Code(s): G43.019 - Migraine without aura, intractable, without status migrainosus (3) Menstrual migraine: Code(s): G43.829 - Menstrual migraine, not intractable, without status migrainosus Category: Medical Plan For Tardive dyskinesia: Trial low dose ingrezza 40mg po daily, as pt has bothersome involuntary movements interfering with her QOL. Will initiate low dose to assess tolerance. Once Ingrezza received, hold benzotropine. Previous trials- austedo and ingrezza- unclear on effect/tolerance. For overall headache management: Continue to try to optimize good self-care, including but not limited to maintaining a healthy diet, adequate fluid intake, adequate sleep, and engaging in regular physical activity. Track headaches. ? For acute headache treatment: Continue Rizatriptan 10mg prn for now. May continue Fioricet- may use sparingly prn- advised of risk for medication adaptation headache w/ frequent use. Previous acute migraine medication trials: Sumatriptan- ineffective. Acute migraine medication contraindications: None at this time. Future considerations- gepants. ? For headache prevention medication: Riboflavin 400mg qam Magnesium 400mg qhs Hold Aimovig 140mg sc q month order- pt did not start and migraines improved. Previous migraine prevention medication trials: Topiramate- ineffective and caused cognitive changes. CCB/amlodipine- ineffective. Migraine prevention medication contraindications: BBs d/t symptomatic asthma dx. TCAs- as pt has bipolar and has previously not tolerated anti-depressants. ? ? F/u in 3-6 months or sooner prn. Medications: New valbenazine (Ingrezza) 40 mg PO DAILY 30 caps 1RF 30 days Coding Level of Care Code Est Pt Level 4 (91653) Complex EM visit Add On G2211 Diagnoses Tardive dyskinesia G24.01 Intractable migraine without aura and without status migrainosus G43.019 Status migrainosus presence: without status migrainosus Intractability: intractable Menstrual migraine G43.829 AIMS Questionnaire Abnormal Involuntary Movement Scale Muscles or Facial Expressions (movements of forehead, eyebrows, periorbital area, cheeks, including frowning, blinking, smiling, grimacing): 2 - Mild Lips and Perioral Area (puckering, pouting, smacking): 0 - None Jaw (biting, clenching, chewing, mouth opening, lateral movement): 1 - Minimal, may be extreme normal Tongue (rate only increases in movement both in and out of mouth. NOT inability to sustain movement. Darting in and out of mouth): 2 - Mild Upper-arms, wrists, hands, fingers (Include choreic movements; rapid, objectively purposeless, irregular, spontaneous. Athetoid movements; slow, irregular, complex, serpentine. DO NOT INCLUDE TREMOR: 0 - None Lower- legs, knees, ankles, toes (lateral knee movement, foot tapping, heel dropping, foot squirming, inversion and eversion of foot: 0 - None Neck, shoulders, hips (rocking, twisting, squirming, pelvic gyrations: 0 - None Severity of abnormal movements overall: 0 - None Incapacitation due to abnormal movements: 3 - Moderate Patient's awareness of abnormal movements: Aware, moderate distress Current problems with teeth and/or dentures?: No Are dentures usually worn?: No Edentia?: No Do movements disappear in sleep?: No AIMS Score: 11
--- OUTSIDE RECORDS SUMMARY | 2024-11-25 12:15 | XMS_ITS | Clinical Summary ---
Author Organization [address] [place] [address] [place] [phone] Phone Care Team Providers Care Student Development Advisor Name Role Phone Physician, No Pcp Primary Care Provider Unavaila ble Allergies Active Allergy Reactions Criticality Noted Date Comments Lamotrigine Rash 09/14/2024 Penicillins Rash 07/10/2024 Medications ARIPiprazole (ABILIFY) 10 mg tablet Take 1 tablet (10 mg total) by mouth daily. 4 Active benztropine (COGENTIN) 0.5 mg tablet Take 1 tablet (0.5 mg total) by mouth 2 times daily. 4 Active betamethasone, augmented, (DIPROLENE) 0.05 % ointment PLEASE SEE ATTACHED FOR DETAILED DIRECTIONS 4 Active budesonide-formo teroL (SYMBICORT) 160-4.5 mcg/actuation inhaler INHALE 2 PUFF INHALED 2 TIMES A DAY FOR 30 DAYS Active butalbital-aceta minophen-caffein e (ESGIC) 50-325-40 mg per capsule TAKE 1 CAPSULE BY MOUTH EVERY 4 HOURS NEEDED FOR PAIN 4 Active docusate sodium (COLACE) 100 mg capsule Take 1 capsule (100 mg total) by mouth 2 (two) times a day. Active fluconazole (DIFLUCAN) 150 mg tablet PLEASE SEE ATTACHED FOR DETAILED DIRECTIONS 4 Active halobetasol (ULTRAVATE) 0.05 % ointment PLEASE SEE ATTACHED FOR DETAILED DIRECTIONS 4 Active hydroCHLOROthiaz mayra (HYDRODIURIL) 25 mg tablet Take 1 tablet (25 mg total) by mouth 1 (one) time each day. Active hydrocortisone (ANUSOL-HC) 25 mg suppository UNWRAP AND INSERT 1 SUPPOSITORY RECTALLY 2 TIMES A DAY FOR 6 DAYS 4 Active ketoconazole (NIZORAL) 2 % cream APPLY ONCE DAILY TO RASH ON TRUNK X 2 WEEKS OR UNTIL CLEAR 4 Active LORazepam (ATIVAN) 0.5 mg tablet Take 1 tablet (0.5 mg total) by mouth. 6 Active ondansetron (ZOFRAN) 8 mg tablet Take 1 tablet (8 mg total) by mouth every 8 hours as needed. 7 Active nystatin (MYCOSTATIN) cream APPLY 1 APPLICATION TOPICALLY DAILY FOR 30 DAYS 4 Active nicotine polacrilex (NICORETTE) [address] 1 each (4 mg total) into mouth between cheek and gum. 4 Active BD Ultra-Fine Short Pen Needle 31 gauge x 5/16 needle Use one new needle with each injection of ozempic every 7 days 4 Active perphenazine 16 mg tablet Take 1 tablet (16 mg total) by mouth daily. 4 Active Ozempic 2 mg/dose (8 mg/3 mL) injection pen Inject 2 mg under the skin. 4 Active perphenazine, bulk, 100 % powder Take by mouth. 6 Active Zepbound 5 mg/0.5 mL injection IINJECT 0.5ML UNDER THE SKIN EVERY 7 DAYS TAKE FIRST DOSE 7 DAYS AFTER THE LAST DOSE OF OZEMPIC 5 Active cyclobenzaprine (FLEXERIL) 10 mg tabletIndication s:Acute midline low back pain without sciatica Take 1 tablet (10 mg total) by mouth at bedtime as needed for muscle spasms. 30 tablet 5 Active Encounters Date Type Department Care Team Description 09/14/2024 9:30 AM EST Office Visit Walk[facility] - [address] [phone] Renuka Conrad NP Acute midline low back pain without sciatica (Primary Dx) 09/14/2024 Telephone [facility] [address] [phone] Renuka Conrad NP medication from Last 3 Months Social History Tobacco Use Types Packs/Day Years Used Date Smoking Tobacco: Never Assessed Comments Unknown Sex and Gender Information Value Date Recorded Sex Assigned at Not on file Legal Sex Female 7:19 AM EST Gender Identity Not on file Sexual Orientation Not on file Last Filed Vital Signs Vital Sign Reading Time Taken Comments Blood Pressure 126/80 09/14/2024 9:45 AM EST Pulse 96 09/14/2024 9:45 AM EST Temperature 36.8 ??C (98.3 ??F) 09/14/2024 9:45 AM ES T Respiratory Rate - - Oxygen Saturation 98% 09/14/2024 9:45 AM EST Inhaled Oxygen Concentration - - Weight - - Height - - Body Mass Index - - Plan of Treatment Health Maintenance Due Date Last Done Comments Breast Cancer Screening 1982 Hepatitis B Vaccines (1 of 3 - 19+ 3-dose series) 2001 Pneumococcal Vaccine: Pediatrics (0 to 5 Years) and At-Risk Patients (6 to 64 Years) (1 of 2 - PCV) 2001 Cervical Cancer Screening: Pap Smear 2003 COVID-19 Vaccine ( season) 2024 03/07/2022, 02/14/2022 Influenza Vaccine (#1) 2024 , 09/07/2021, 07/21/2019, Additional history exists Cholesterol Screening (Lipid Panel) 07/10/2024 Depression Screening 07/10/2024 10/03/2022 HIV Screening 07/10/2024 Hepatitis C Screening 07/10/2024 Hypertension/CHF/CAD Annual BMP Blood Test 07/10/2024 Medicare Annual Wellness Visit 07/10/2024 Social Influencers of Health Screening 07/10/2024 DTaP,Tdap,and Td Vaccines (3 - Td or Tdap) 05/05/2029 05/05/2019, 10/05/2014 HIB Vaccines Aged Out No longer eligi ble based on patient's age to complete this topic HPV Vaccines Aged Out No longer eligi ble based on patient's age to complete this topic Hepatitis A Vaccines Aged Out No long er eligible based on patient's age to complete this topic IPV Vaccines Aged Out No longer eligi ble based on patient's age to complete this topic MMR Vaccines Aged Out No longer eligi ble based on patient's age to complete this topic Meningococcal ACWY Vaccine Aged Out N o longer eligible based on patient's age to complete this topic Meningococcal B Vacine Aged Out No lo nger eligible based on patient's age to complete this topic RSV Immunization Patients Under 20 months Aged Out No longer eligible based on patient's age to complete this topic Varicella Vaccines Aged Out No longer eligible based on patient's age to complete this topic Insurance MEDICARE [place] - [place] Care Teams Student Development Advisor Relationship Specialty Start Date End Date Physician, No Pcp PCP - General 07/10/24
== END 2024-11-25 12:09 | disposition home or self-care (01) ==
LOC: HO.HSMS 10:56
PROVIDERS: PCP Internal Medicine; Visit Provider Nurse Practitioner Family
DX: G24.01 Drug induced subacute dyskinesia (principal); G43.019 Migraine without aura, intractable, without status migrainosus; G43.829 Menstrual migraine, not intractable, without status migrainosus
CPT/HCPCS: 99214; G2211

== ENCOUNTER → 2024-11-25 10:54 | Outpatient (BNVA) | payer MEDICARE, MEDICAID, SELFPAY | PROVIDERS: PCP Internal Medicine; Visit Provider Nurse Practitioner Family | DX: G24.01 Drug induced subacute dyskinesia (principal); G43.019 Migraine without aura, intractable, without status migrainosus; G43.829 Menstrual migraine, not intractable, without status migrainosus | CPT/HCPCS: 99212 ==

== ENCOUNTER 2024-12-07 09:50 | Outpatient (AMB) | payer MEDICARE, MEDICAID, SELFPAY ==
[2024-12-07 09:52] VITALS: BP 120/80; PULSE 93; O2SAT 98; BMI 39.4
--- NOTE | 2024-12-07 09:52 | MHC.PC.OV ---
Vital Signs 12/07/24 09:52 Height 5 ft 4 in Weight 229 lb 5 oz BMI 39.4 BP 120/80 Blood Pressure Location Rt brachial Position Sitting Pulse 93 Pulse Source Pulse Oximeter Pulse Oximetry (%) 98 Oxygen Delivery Method Room Air Intake Visit Reasons: Lab-Follow Up Allergies lamotrigine [From LAMICTAL] Allergy (Intermediate, Verified 12/07/24 09:52) RASH Penicillins [PENICILLINS] Allergy (Intermediate, Verified 12/07/24 09:52) RASH prednisone [PREDNISONE] Allergy (Intermediate, Verified 12/07/24 09:52) AGITATION, anger, agitation, agitated mental/emotional status penicillin V Allergy (Unknown, Verified 12/07/24 09:52) Agitated Environmental [hx allergy shot Allergy (Unknown, Uncoded 12/07/24 09:52) Unknown Medication List - Last Reconciled 12/07/24 by Shruthi Castro MD albuterol sulfate 2.5 mg (3 mL) inhalation Q6H PRN albuterol sulfate 90 mcg/actuation 1 puff PO Q4-6H PRN 30 days aripiprazole 10 mg PO DAILY azithromycin 250 mg PO 3XW 28 days budesonide-formoterol 160-4.5 mcg/actuation (Symbicort) 2 puffs inhalation BID 30 days hvbplzqfcq-iegciebaonzhv-emdo 50-325-40 mg 1 cap PO Q4H PRN 30 days cetirizine 10 mg PO DAILY PRN docusate sodium (Colace) 100 mg PO BID [donut seat cushion As directed] hydrochlorothiazide 25 mg PO DAILY lidocaine 4% 1 appl topical BID lorazepam 0.5 mg PO BEDTIME PRN nebulizers As directed nystatin 1 appl topical DAILY PRN ondansetron HCl 4 mg PO ONCE PRN 30 days perphenazine 4 mg PO BID tirzepatide (weight loss) (Zepbound) 10 mg subcut QWEEK valbenazine (Ingrezza) 40 mg PO DAILY 30 days Tobacco use date assessed: 12/07/24 Dental Screening Dental Screen Date: 12/07/24 Did you have a dental problem in the last 6 months where you did not have access to dental care?: No HPI Lab-Follow Up HPI Details History - The patient is a 44-year-old female presenting with concerns regarding hemorrhoids and palpitations. - Hemorrhoids: The patient has a history of hemorrhoids and was advised to have them surgically removed, but postponed due to . The surgery has not yet been performed due to personal caregiving obligations. The patient has observed bleeding, which she attributes to hemorrhoids. No family history of colon cancer has been reported, still not ready for surgery patient will get back to me if she change her mind - Palpitations: The patient reports tachycardia and a sensation of her heart beating too fast. She attributes these symptoms to high caffeine intake, which she consumes to manage her duties at night with her daughter who has autism. The patient has a family history of tachycardia and experiences brief chest pains occasionally. - Hypertension: She stopped her blood pressure medication as she was feeling dizziness due to low blood pressure, has not taken her medication in 3 weeks and blood pressure is within normal limit - Chronic bronchitis and Pre-diabetes: The patient is under treatment for chronic bronchitis with azithromycin as needed and is aware of her prediabetic status. - Bipolar Disorder: The patient is on medication for bipolar disorder, which is part of the current treatment regimen. EKG done today is within normal limit Problem List - Hemorrhoids - Palpitations - Family history of tachycardia - Prediabetes - Hypertension - Chronic bronchitis - Bipolar disorder - obesity - excessive caffeine consumption Diagnostic results - Tests and Diagnostics: - Electrocardiogram (EKG): Shows normal rhythm, no acute findings. Patient Instructions - Monitor blood pressure regularly, especially if experiencing headaches or pressure. - Continue taking azithromycin as needed for chronic bronchitis as directed by Dr. Ramirez. - Taper off caffeine consumption to potentially reduce palpitations and withdrawal headaches. - Schedule a physical exam for February 08, with fasting labs required before the visit. Review of Systems General: No fever no chills neurological: No headaches no dizziness ear nose throat: No sore throat no hearing difficulty no ear pain cardiovascular: No syncope, no chest pain gastrointestinal: No nausea vomiting or diarrhea endocrine: No polyuria polydipsia no heat intolerance genitourinary: No dysuria skin: No new complaints Physical Exam general: No acute distress HEENT: No acute findings neck: Supple respiratory system: Able to talk in full sentences, no audible wheeze no stridor cardiovascular: S1-S2, regular in rate and rhythm gastrointestinal: No pain extremities: No new findings AIRLINE STEWARDESS: Alert awake oriented x3 motor sensory intact skin: Normal turgor [facility] Medical History External hemorrhoids with complication Anal fissure Thymus hyperplasia Pulmonary nodule Abnormal chest x-ray Chronic bronchitis Asthma Chest pain Morbid obesity Essential hypertension Surgical History History of section Family History Father HTN (hypertension) Hypercholesteremia Mother Migraines Brother No problems noted. Sister No problems noted. Daughter No problems noted. Paternal Grandmother Migraines Daughter Kawasaki disease Daughter Autism spectrum disorder Other Mental health disorder Social History Housing: House Alcohol intake: never Patient Tobacco Use Status: Current everyday Tobacco user Tobacco use type: Cigarette Cigarettes Per Day: 10 Years Smoked: 20 e-Cigarette/Vaping Use: Never Used service: No Current occupational status: unemployed Cognitive needs: No Hearing needs: No Vision needs: No Questionnaire PHQ-9 Over the last 2 weeks, how often have you been bothered by any of the following problems? 02132 - PHQ-9 Billing: Patient declined-do not bill Source: Developed by Drs. Estuardo Galindo, Miryam Pino, Joe Chakraborty and colleagues, with an educational roxie from [employer]. Thrive Questionnaire Date Thrive assessed: 12/07/24 I am a: Patient What is your living situation today?: I have a steady place to live Within the past 12 months, did the food you bought not last and you didn't have the money to get more?: Never true Within the past 12 months, did you worry whether your food would run out before you got money to buy more?: Never true Do you have trouble paying for medicines?: No Do you have trouble getting transportation to medical appointments?: No Do you have trouble paying your heating and electricity bill?: No Do you have trouble taking care of your child, family member or friend?: No Do you have trouble with day-to-day activities such as bathing, preparing meals, shopping, managing finances, etc.?: No Are you currently unemployed and looking for a job?: No Are you interested in more education?: No Please select the resources that you would like help with: None Currently or been in a relationship where the following occur: No concerns reported THRIVE Score: 0 AUDIT C Alcohol Use Questionnaire (AUDIT-C) 1. How often do you have a drink containing alcohol?: Never 3. How often do you have six or more drinks on one occasion?: Never Total Score: 0 Score Reviewed/Action Taken: Yes GABRIELLE-7 AMB Questionnaire GABRIELLE-7 Date GABRIELLE - 7 assessed: 12/07/24 Feeling nervous, anxious, or on edge: 0 = Not at all Not being able to stop or control worryin = Not at all Worrying too much about different things: 0 = Not at all Trouble relaxin = Not at all Being so restless that it is hard to sit still: 0 = Not at all Becoming easily annoyed or irritable: 0 = Not at all Feeling afraid as if something awful might happen: 0 = Not at all Total GABRIELLE-7 score (0-4 normal; 5-9 mild; 10-14 moderate; 15-21 severe): 0 Source: Developed by Drs. Estuardo Galindo, Miryam Pino, Joe Chakraborty and colleagues, with an educational roxie from [employer]. GABRIELLE-7 Assessment Billing GABRIELLE-7 Assessment Tool: GABRIELLE-7 Assessment 46697 Physical exam (Primary Care) Vital Signs: Last Vital Signs Pulse 93 12/07/24 09:52 BP 120/80 12/07/24 09:52 Pulse Ox 98 12/07/24 09:52 Oxygen Delivery Method Room Air 12/07/24 09:52 BMI result Body Mass Index 39.4 Tobacco/Smoking Status: Tobacco use Status Tobacco use date assessed 12/07/24 12/07/24 09:55 Patient Tobacco Use Status Current everyday Tobacco 12/07/24 09:55 Tobacco use type Cigarette 12/07/24 09:55 e-Cigarette/Vaping Use Never Used 12/07/24 09:55 Thrive Assessment: Date of Thrive Assessment Date Thrive assessed 12/07/24 12/07/24 09:55 Currently or been in a relationship where the following occur: No concerns reported Office Procedures EKG 30090-Enxzthomydqmbhqgy, Complete Coding Level of Care Code Est Pt Level 5 (30081) Diagnoses Palpitations R00.2 External hemorrhoid, bleeding K64.4 Pre-diabetes R73.03 Class 2 severe obesity due to excess calories with serious comorbidity and body mass index (BMI) of 38.0 to 38.9 in adult E66.01; Z68.38 Body mass index: BMI 38.0-38.9 Obesity classification: adult class 2 (BMI 35 - 39.9) Serious obesity comorbidity presence: with serious comorbidity Mucopurulent chronic bronchitis J41.1 Chronic bronchitis type: mucopurulent Bipolar disorder, in full remission, most recent episode mixed F31.78 Active/Remission status: in full remission Most recent bipolar episode type: mixed CPT Codes EKG - CPT: 17639-Cwlisocgcccbfazsa, Complete ([id number]) Additional Codes GABRIELLE-7 Assessment Billing - GABRIELLE-7 Assessment Tool: GABRIELLE-7 Assessment [id number] ([id number]) Time Spent (min) 41 Comment Reviewing chart/nbgy-gq-qina/EKG/coordination of care Assessment & Plan Assessment & Plan (1) Palpitations: Code(s): R00.2 - Palpitations Category: Medical (2) External hemorrhoid, bleeding: Code(s): K64.4 - Residual hemorrhoidal skin tags Category: Medical (3) Pre-diabetes: Code(s): R73.03 - Prediabetes Category: Medical (4) Obesity due to excess calories: Code(s): E66.09 - Other obesity due to excess calories Category: Medical Qualifiers: Body mass index: BMI 38.0-38.9 Obesity classification: adult class 2 (BMI 35 - 39.9) Serious obesity comorbidity presence: with serious comorbidity Qualified Code(s): E66.01 - Morbid (severe) obesity due to excess calories; Z68.38 - Body mass index [BMI] 38.0-38.9, adult (5) Chronic bronchitis: Code(s): J42 - Unspecified chronic bronchitis Category: Medical Qualifiers: Chronic bronchitis type: mucopurulent Qualified Code(s): J41.1 - Mucopurulent chronic bronchitis (6) Bipolar disorder: Code(s): F31.9 - Bipolar disorder, unspecified Category: Medical Qualifiers: Active/Remission status: in full remission Most recent bipolar episode type: mixed Qualified Code(s): F31.78 - Bipolar disorder, in full remission, most recent episode mixed Plan History - The patient is a 44-year-old female presenting with concerns regarding hemorrhoids and palpitations. - Hemorrhoids: The patient has a history of hemorrhoids and was advised to have them surgically removed, but postponed due to . The surgery has not yet been performed due to personal caregiving obligations. The patient has observed bleeding, which she attributes to hemorrhoids. No family history of colon cancer has been reported, still not ready for surgery patient will get back to me if she change her mind - Palpitations: The patient reports tachycardia and a sensation of her heart beating too fast. She attributes these symptoms to high caffeine intake, which she consumes to manage her duties at night with her daughter who has autism. The patient has a family history of tachycardia and experiences brief chest pains occasionally. - Hypertension: She stopped her blood pressure medication as she was feeling dizziness due to low blood pressure, has not taken her medication in 3 weeks and blood pressure is within normal limit - Chronic bronchitis and Pre-diabetes: The patient is under treatment for chronic bronchitis with azithromycin as needed and is aware of her prediabetic status. - Bipolar Disorder: The patient is on medication for bipolar disorder, which is part of the current treatment regimen. EKG done today is within normal limit Problem List - Hemorrhoids - Palpitations - Family history of tachycardia - Prediabetes - Hypertension - Chronic bronchitis - Bipolar disorder - obesity - excessive caffeine consumption Diagnostic results - Tests and Diagnostics: - Electrocardiogram (EKG): Shows normal rhythm, no acute findings. Patient Instructions - Monitor blood pressure regularly, especially if experiencing headaches or pressure. - Continue taking azithromycin as needed for chronic bronchitis as directed by Dr. Ramirez. - Taper off caffeine consumption to potentially reduce palpitations and withdrawal headaches. - Schedule a physical exam for February 08, with fasting labs required before the visit. Orders: Orders Complete Blood Count Auto Diff Today E66.01 - Morbid (severe) obesity due to excess calories, F31.78 - Bipolar disorder, in full remission, most recent episode mixed, J41.1 - Mucopurulent chronic bronchitis, K64.4 - Residual hemorrhoidal skin tags, R00.2 - Palpitations, R73.03 - Prediabetes, Z68.38 - Body mass index [BMI] 38.0-38.9, adult Comprehensive [place]. Panel Fast Today E66.01 - Morbid (severe) obesity due to excess calories, F31.78 - Bipolar disorder, in full remission, most recent episode mixed, J41.1 - Mucopurulent chronic bronchitis, K64.4 - Residual hemorrhoidal skin tags, R00.2 - Palpitations, R73.03 - Prediabetes, Z68.38 - Body mass index [BMI] 38.0-38.9, adult TSH reflex Free T4 Today E66.01 - Morbid (severe) obesity due to excess calories, F31.78 - Bipolar disorder, in full remission, most recent episode mixed, J41.1 - Mucopurulent chronic bronchitis, K64.4 - Residual hemorrhoidal skin tags, R00.2 - Palpitations, R73.03 - Prediabetes, Z68.38 - Body mass index [BMI] 38.0-38.9, adult Lipid Panel Today E66.01 - Morbid (severe) obesity due to excess calories, F31.78 - Bipolar disorder, in full remission, most recent episode mixed, J41.1 - Mucopurulent chronic bronchitis, K64.4 - Residual hemorrhoidal skin tags, R00.2 - Palpitations, R73.03 - Prediabetes, Z68.38 - Body mass index [BMI] 38.0-38.9, adult Medications: Discontinued hydrochlorothiazide Discontinued Reason: Doctor's Order 25 mg PO DAILY 90 tabs 1RF
--- OUTSIDE RECORDS SUMMARY | 2024-12-07 11:18 | XMS_ITS | Clinical Summary ---
Author Organization [address] [place] [address] [place] [phone] Phone Care Team Providers Care Corporate Legal Assistant Name Role Phone Physician, No Pcp Primary [...] AM EST Office Visit Walk[facility]In [facility] - [address] [phone] Renuka Conrad NP Acute midline low back pain without sciatica (Primary Dx) 09/14/2024 Telephone Walk-In Clinic [address] [phone] Renuka Conrad NP medication from [...] COVID-19 Vaccine ( season) 2024 03/07/2022, 02/14/2022 Cholesterol Screening (Lipid Panel) 07/10/2024 Depression Screening 07/10/2024 10/03/2022 HIV Screening 07/10/2024 Hepatitis C Screening 07/10/2024 Hypertension/CHF/CAD Annual BMP Blood Test 07/10/2024 Medicare Annual Wellness Visit 07/10/2024 Social Influencers of Health Screening 07/10/2024 Influenza Vaccine (Season Ended) 2025 07/01/2023, 09/07/2021, 07/21/2019, Additional history exists DTaP,Tdap,and Td Vaccines (3 - Td or [...] age to complete this topic Meningococcal B Vaccine Aged Out No l onger eligible based on patient's age to complete this topic RSV Immunization Patients Under 20 months Aged Out No longer eligible based on patient's age to complete this topic Varicella Vaccines Aged Out No longer eligible based on patient's age to complete this topic Insurance MEDICARE [place] - [place] Care Teams Corporate Legal Assistant Relationship Specialty Start Date End Date Physician, No Pcp PCP - General 07/10/24
== END 2024-12-07 10:27 | disposition home or self-care (01) ==
LOC: HO.HMCC 09:50
PROVIDERS: PCP Internal Medicine; Visit Provider Internal Medicine
DX: R00.2 Palpitations (principal); J41.1 Mucopurulent chronic bronchitis; E66.01 Morbid (severe) obesity due to excess calories; Z68.38 Body mass index [BMI] 38.0-38.9, adult; F31.78 Bipolar disorder, in full remission, most recent episode mixed; K64.4 Residual hemorrhoidal skin tags; R73.03 Prediabetes

== ENCOUNTER → 2024-12-07 09:50 | Outpatient (BNVA) | payer MEDICARE, MEDICAID, SELFPAY | PROVIDERS: PCP Internal Medicine; Visit Provider Internal Medicine | DX: R00.2 Palpitations (principal); K64.4 Residual hemorrhoidal skin tags; R73.03 Prediabetes; E66.01 Morbid (severe) obesity due to excess calories; Z68.38 Body mass index [BMI] 38.0-38.9, adult; J41.1 Mucopurulent chronic bronchitis; F31.78 Bipolar disorder, in full remission, most recent episode mixed | CPT/HCPCS: 93005; 96127; 99212 ==

== ENCOUNTER 2025-01-08 09:02 | Outpatient (REF) | payer MEDICARE, MEDICAID, SELFPAY ==
[2025-01-08 11:12] LABS: MANUAL DIFF FLAG NO
[2025-01-08 11:32] LABS: Basophils Percent Auto 0.3 % (0-2); Eosinophils Absolute Auto 0.1 X10*3/uL (0.0-0.4); Eosinophils Percent Auto 0.7 % (0-4); Hematocrit 42.6 % (37.0-47.0); Hemoglobin 14.4 g/dl (12.0-16.0); Imm Gran Abs Auto 0.05 X10*3/uL (0.00-0.03); Imm Gran Pct Auto 0.6 % (0.0-0.4); Lymphocytes Absolute Auto 2.7 X10*3/uL (1.2-4.9); Lymphocytes Percent Auto 31.1 % (20-40); Mean Corpuscular HGB Conc 33.8 g/dl (31.0-35.0); Mean Corpuscular Volume 91.6 fL (80.0-98.0); Mean Platelet Volume 11.4 fL (9.4-12.3); Monocytes Absolute Auto 0.5 X10*3/uL (0.1-1.2); Monocytes Percent Auto 5.7 % (2-11); Neutrophils Absolute Auto 5.3 x10*3/uL (2.0-8.3); Neutrophils Percent Auto 61.6 % (45-73); Platelet Count 180 X10*3/uL (160-400); Red Blood Count 4.65 X10*6/uL (4.20-5.50); Red Cell Distribution Width 12.3 % (11.0-16.0); White Blood Count 8.7 X10*3/uL (4.8-10.8)
[2025-01-08 11:54] LABS: Alanine Aminotransferase 21 U/L (0-31); Albumin Level 4.3 g/dL (3.5-5.0); Alkaline Phosphatase 68 U/L (39-117); Anion Gap 10 (12-20); Aspartate Amino Transferase 18 U/L (5-31); Bilirubin Total 0.5 mg/dL (0.0-1.0); Blood Urea Nitrogen 14 mg/dL (9-16); Calcium 9.3 mg/dL (8.4-10.2); Carbon Dioxide 25 mmol/L (22-29); Chloride 107 mmol/L (96-108); Cholesterol 155 mg/dL (<200); Estimated Glomerular Filt Rate > 60; Glucose Fasting 87 mg/dL (60-99); HDL Cholesterol 50 mg/dL (>40); LDL Cholesterol Calculated 95 mg/dL (<100); Potassium 4.4 mmol/L (3.3-5.1); Sodium 138 mmol/L (135-145); Total Protein 7.2 g/dL (6.5-8.0); Triglycerides 52 mg/dL (<150)
[2025-01-08 11:58] LABS: TSH reflex Free T4 2.13 uIU/mL (0.32-4.0)
== END 2025-01-08 09:03 | disposition home or self-care (01) ==
LOC: HO.HMGCLDS 09:02
PROVIDERS: PCP Internal Medicine; Visit Provider Internal Medicine
DX: K64.4 Residual hemorrhoidal skin tags (principal); R73.03 Prediabetes; E66.01 Morbid (severe) obesity due to excess calories; Z68.38 Body mass index [BMI] 38.0-38.9, adult; J41.1 Mucopurulent chronic bronchitis; F31.78 Bipolar disorder, in full remission, most recent episode mixed; R00.2 Palpitations
CPT/HCPCS: 36415; 80053; 80061; 84443; 85025

== ENCOUNTER 2025-01-13 08:33 | Outpatient (AMB) | payer MEDICARE, MEDICAID, SELFPAY ==
--- NOTE | 2025-01-13 08:37 | A.OFFPC_ITS ---
Intake Visit Reasons: Discuss Labs Allergies lamotrigine [From LAMICTAL] Allergy (Intermediate, Verified 01/13/25 08:37) RASH Penicillins [PENICILLINS] Allergy (Intermediate, Verified 01/13/25 08:37) RASH prednisone [PREDNISONE] Allergy (Intermediate, Verified 01/13/25 08:37) AGITATION, anger, agitation, agitated mental/emotional status penicillin V Allergy (Unknown, Verified 01/13/25 08:37) Agitated Environmental [hx allergy shot Allergy (Unknown, Uncoded 01/13/25 08:37) Unknown Medication List - Last Reconciled 01/13/25 by Shruthi Castro MD albuterol sulfate 2.5 mg (3 mL) inhalation Q6H PRN albuterol sulfate 90 mcg/actuation 1 puff PO Q4-6H PRN 30 days aripiprazole 10 mg PO DAILY budesonide-formoterol 160-4.5 mcg/actuation (Symbicort) 2 puffs inhalation BID 30 days clvtqwmtny-vudpwkoiyediu-hiig 50-325-40 mg 1 cap PO Q4H PRN 30 days cetirizine 10 mg PO DAILY PRN docusate sodium (Colace) 100 mg PO BID [donut seat cushion As directed] lidocaine 4% 1 appl topical BID lorazepam 0.5 mg PO BEDTIME PRN nebulizers As directed nystatin 1 appl topical DAILY PRN ondansetron HCl 4 mg PO ONCE PRN 30 days perphenazine 4 mg PO BID tirzepatide (weight loss) (Zepbound) 10 mg subcut QWEEK valbenazine (Ingrezza) 40 mg PO DAILY 30 days Tobacco use date assessed: 01/13/25 Dental Screening Dental Screen Date: 01/13/25 Did you have a dental visit in the last 12 months?: No Did you have a dental problem in the last 6 months where you did not have access to dental care?: No Was dental information given to patient?: Patient has dentist HPI Discuss Labs HPI Details History - The patient is a 44-year-old female [place] concerned regarding recent abnormal findings on a mammogram. - The patient has a history of regular m ammograms beginning at age 42. - The patient was informed that an abnor mality was noted on the right breast during a recent mammogram with further imaging scheduled for February 02. - Laboratory results have been reviewed, and all tests returned normal values. This includes a complete blood count (normal white cells and hemoglobin), electrolytes, kidney function, glucose levels, liver enzymes, and cholesterol levels (which were stable at 155). - The primary care physician noted a lac k of mammogram reports in the patient's records. they has been ordered thru her Obgyn affliated with [facility] Problem List - Right breast mammogram abnormality (pe nding further evaluation) - anxiety Patient Instructions - Ensure that the mammogram report is se nt to my office for update and evaluation. - Proceed with the scheduled further justin mogram testing on February 02. - rest assure you labs are stable. Review of Systems - General: No fever no chills - Ear nose throat: No sore throat no hearing difficulty no ear pain - Cardiovascular: No syncope, no chest pain, no palpitations - Gastrointestinal: No nausea vomiting or diarrhea PFSH Medical History External hemorrhoids with complication Anal fissure Thymus hyperplasia Pulmonary nodule Abnormal chest x-ray Chronic bronchitis Asthma Chest pain Morbid obesity Essential hypertension Surgical History History of section Family History Father HTN (hypertension) Hypercholesteremia Mother Migraines Brother No problems noted. Sister No problems noted. Daughter No problems noted. Paternal Grandmother Migraines Daughter Kawasaki disease Daughter Autism spectrum disorder Other Mental health disorder Social History Housing: House Alcohol intake: never Patient Tobacco Use Status: Current everyday Tobacco user Tobacco use type: Cigarette Cigarettes Per Day: 10 Years Smoked: 20 e-Cigarette/Vaping Use: Never Used service: No Current occupational status: unemployed Cognitive needs: No Hearing needs: No Vision needs: No Questionnaire Thrive Questionnaire Date Thrive assessed: 12/07/24 AUDIT C Alcohol Use Questionnaire (AUDIT-C) 1. How often do you have a drink containing alcohol?: Never 3. How often do you have six or more drinks on one occasion?: Never Total Score: 0 Score Reviewed/Action Taken: Yes GABRIELLE-7 AMB Questionnaire GABRIELLE-7 Date GABRIELLE - 7 assessed: 12/07/24 Source: Developed by Drs. Estuardo Galindo, Miryam Pino, Joe Chakraborty and colleagues, with an educational roxie from [employer]. Physical exam (Primary Care) Tobacco/Smoking Status: Tobacco use Status Tobacco use date assessed 01/13/25 01/13/25 08:38 Patient Tobacco Use Status Current everyday Tobacco 01/13/25 08:38 Tobacco use type Cigarette 01/13/25 08:38 e-Cigarette/Vaping Use Never Used 01/13/25 08:38 Thrive Assessment: Date of Thrive Assessment Date Thrive assessed 12/07/24 01/13/25 08:38 Telehealth Telehealth Telehealth Platform: [employer] Location of provider rendering services: practice address Location of patient: address on file Patient Identification confirmed using: Name, : Yes Telehealth method: voice only Patient verbally consented to treatment: Yes Patient verbally consented to billing insurance company: Yes Patient informed of any privacy concerns related to visit: Yes Minutes spent on Phone/Video with Pt.: 12 Coding Level of Care Code Tele Est Pt Level 3 (29667) Diagnoses Anxiety about health F41.8 Abnormal finding on mammography R92.8 Assessment & Plan Assessment & Plan (1) Anxiety about health: Code(s): F41.8 - Other specified anxiety disorders Category: Medical (2) Abnormal finding on mammography: Code(s): R92.8 - Other abnormal and inconclusive findings on diagnostic imaging of breast Category: Medical Plan History - The patient is a 44-year-old female feeling concerned regarding recent abnormal findings on a mammogram. - The patient has a history of regular mammograms beginning at age 42. - The patient was informed that an abnormality was noted on the right breast during a recent mammogram with further imaging scheduled for February 02. - Laboratory results have been reviewed, and all tests returned normal values. This includes a complete blood count (normal white cells and hemoglobin), electrolytes, kidney function, glucose levels, liver enzymes, and cholesterol levels (which were stable at 155). - The primary care physician noted a lack of mammogram reports in the patient's records. they has been ordered thru her Obgyn affliated with [facility] Problem List - Right breast mammogram abnormality (pending further evaluation) - anxiety Patient Instructions - Ensure that the mammogram report is sent to my office for update and evaluation. - Proceed with the scheduled further mammogram testing on February 02. - rest assure you labs are stable.
--- OUTSIDE RECORDS SUMMARY | 2025-01-13 08:45 | XMS_ITS | Clinical Summary ---
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
== END 2025-01-13 08:45 | disposition home or self-care (01) ==
LOC: HO.HMCC 08:33
PROVIDERS: PCP Internal Medicine; Visit Provider Internal Medicine
DX: F41.8 Other specified anxiety disorders (principal); R92.8 Other abnormal and inconclusive findings on diagnostic imaging of breast

== ENCOUNTER → 2025-01-13 08:33 | Outpatient (BNVA) | payer MEDICARE, MEDICAID, SELFPAY | PROVIDERS: PCP Internal Medicine; Visit Provider Internal Medicine | DX: Z13.89 Encounter for screening for other disorder (principal) ==

== ENCOUNTER 2025-02-03 09:47 | Outpatient (AMB) | payer MEDICARE, MEDICAID, SELFPAY ==
--- NOTE | 2025-02-03 09:50 | MHC.OFFVIS ---
Vital Signs 02/03/25 09:51 Height 5 ft 4 in Weight 221 lb 9.033 oz BMI 38.0 BP 116/72 Blood Pressure Location Lt brachial Position Sitting Pulse 90 Pulse Source Pulse Oximeter Pulse Oximetry (%) 98 Oxygen Delivery Method Room Air Intake Visit Reasons: Asthma Physicist Cryogenics Required: No Accompanied by: Self / Same As Patient Allergies lamotrigine [From LAMICTAL] Allergy (Intermediate, Verified 02/03/25 09:53) RASH Penicillins [PENICILLINS] Allergy (Intermediate, Verified 02/03/25 09:53) RASH prednisone [PREDNISONE] Allergy (Intermediate, Verified 02/03/25 09:53) AGITATION, anger, agitation, agitated mental/emotional status penicillin V Allergy (Unknown, Verified 02/03/25 09:53) Agitated Environmental [hx allergy shot Allergy (Unknown, Uncoded 01/13/25 08:37) Unknown HPI Comments Details: The patient is a 44 y/o woman with tobacco dependency who developed Covid 19 back in March 2021. She was evaluated at [facility] ED and discharged. CXR apperantly with pneumonia. She was treated and released. Required multiple courses of antibiotics and steroids. Ever since then she has had multiple courses of antibiotics and prednisone. She had a repeat CXR in april with minimal basilar changes. She was again sick in November and went to an urgent care and was diagnosed with pneumonia. She was given a course of levaquin and steroids. She is better but still complaining of chest tightness and burning . She is still smoking but she would like to quit. 02/06/2022 the patient is here for a pulmonary follow-up visit. Overall she is feeling a little better. She did try the Symbicort inhaler. However, I gave her thrush therefore she stopped it. She has not required it. She also was prescribed the Wellbutrin for the smoking cessation and she could not tolerate that either. She is going to be looking into hypnosis another alternative to quitting. I believe this is a good option specially since she is motivated to quitting. The overall her breathing has improved. She did have a chest x-ray that we did review and compared to her previous in appears that she is clearing the left basilar opacity area which is reassuring. We also did review the blood work. One of the laboratories was the COVID-19 antibody which is no longer present. I did emphasize to the patient that she no longer has the antibodies low for she is at high risk for getting reinfected with COVID-19. Therefore, the patient is interested in getting vaccinated. She is going to make an appointment in order to do so at her earliest convenience. The patient is going to work on weight loss and exercise and smoking cessation. Will plan to follow-up sometime in the fall with pulmonary function studies. In meantime she can go back to using the Symbicort 1 puff as needed. She needs to make sure she rinses her mouth well ideally with mouthwash after using the Symbicort. 06/06/2022 The patient is here for a sick visit. She was exposed to sick contacts (her children). She started developing a left sided pleuritic pain, mils to moderate in severity. Sometimes feels like icy hot . She has felt like this when she has developed pneumonia. She did have a CXR with interval progression of bilateral nodular opacities. She also has a cough, but non productive. She also had recent bloodwork demonstrating a left shift. 07/24/2022 the patient is here for a pulmonary follow-up visit. Overall the patient is doing better after the course of antibiotics and prednisone. She was again started to feel a chest discomfort and sometimes like a icy hot sensation. She was also having more coughing and more chest congestion of the time. Now she is better although she still complains of some shortness of breath. She still has a hacky cough. We did review her chest x-ray that she had back then. She did have any hazy opacity noted on the left mid lung zone. The patient does smoke cigarettes. Therefore, due to the fact that she continues to be symptomatic and she had an abnormal chest x-ray I will go ahead and order a CT scan of the chest to better assess density. In the meantime the patient will continue to work on smoking cessation. She does have a history of depression so therefore she was told not to use Chantix. She has had a bad reaction to Wellbutrin in the past. she will try nicotine replacement therapy. 11/19/2022 the patient is here for a pulmonary follow-up visit. Recently she called because she was having chest discomfort in addition to cough. She has it been exposed to sick contacts. She started antibiotics and she feels better. Her recent chest x-rays reassuring without any airspace disease. In addition to that, the patient did have a CT scan of the chest this year. Will personally reviewed it. The report mentioned no pulmonary nodules although I do see it nodular density in the right lower lobe measuring 6 mm in size. Patient is high risk because of his smoking history. Will plan to repeat the CT scan in 6 months. In the meantime she knows she needs to quit smoking. She is going to come up without quit contract and she is going to work on cutting down on her cigarettes now and then quit altogether on December 23. Will follow-up in [address] scan. She is going to continue with current respiratory therapy at this time. 05/20/2023 the patient is here for a telehealth visit. She could not make the appointment since she has a sick contact sick family member. The patient overall has been doing better. Back in March she did have worsening productive cough in addition to chest discomfort. Typically how she gets before pneumonia. Therefore, the patient did have an appointment with our office for an urgent visit and she was started on medications for lower respiratory infection. Symptoms did improve. In addition to that we did review her CT scan that she had recently. It appeared that the right lower lobe pulmonary nodule has decreased in size. Otherwise do see bilateral pulmonary nodules some that may be new. Therefore, in view of her smoking history and high risk for cancer the patient should get a repeat CT scan in a year's time. She is also by trying to quit smoking although is very hard for her. She wants to try is more alert nicotine patch to see if she can tolerate it since she could not tolerate the 14 mg. The patient will continue with current respiratory therapy. Will plan to follow-up in 6 months or sooner if she develops any worsening symptoms. 10/07/2023 the patient has a telehealth visit today. The patient overall has been feeling little better recently. She had been on the azithromycin 3 times a week and she was able to avoid a lower respiratory infection pneumonia until sometime in July. She has stopped taking the medication and then her kids became sick and she was exposed to sick contact and started developing respiratory symptoms. She then restart taking the azithromycin she improved. Now more recently she was exposed to again her children's illness and she started developing worsening primarily discomfort that hazy hot sensation that she feels the chest area before she did see pneumonia. The patient recently had blood work. We did reviewed. Her white counts normal and she does have slight decrease in her platelet count but I did reassure her that is a minimal change is not significant at this time. 01/27/2024 the patient is here for pulmonary follow-up visit. Overall she is doing okay. She was exposed to sick contacts. The azithromycin effective in beneficial. The patient is also working on weight loss. She lost about 70 lb using injectables. The patient continues exercises well. She is working on smoking. She was able to quit with the patch but then she went back. She is smoking significantly last time she is motivated to quitting altogether. She will continue working on cutting down. In the meantime the patient did have a CT scan back in 05/14/2023 demonstrating residual thymus tissue. Will go ahead and readdress that sometime in the fall. Lung parenchyma looks good. The patient is a smoker so therefore she is high risk for cancer. 08/03/2024 the patient is here for pulmonary follow-up visit. Overall the patient has been doing fair. She has had multiple respiratory illnesses. She had been taking the azithromycin 3 times a week with good effect although she did stop it because of GI adverse effects. And then developed worsening respiratory complaints. She went to her primary care doctor and then to urgent care. She was diagnosed with sinusitis and she was given a course of doxycycline. She was also given prednisone. She did feel better and she is feeling better although not completely. She is concerned about potential side effects from being on azithromycin long-term. At this point the azithromycin is more of an anti-inflammatory medication using for chronic bronchitis. Explained to her though that likely when she stopped smoking the inflammation will decrease and she will no longer need to be on azithromycin. She still has urinary can fullness. There is some redness of the tympanic membrane. Likely mycoplasma. Will go ahead and treated with azithromycin 500 mg for 5 days. In then she can go back on the azithromycin 250 2 to 3 times a week. She is going to work on tobacco cessation. Clinical consider Chantix whenever is okay by her psychiatrist. Also she did have a CT scan of the chest that I personally reviewed. Has not been officially read by has a minimal scarring of the lungs likely from passive infections but otherwise no significant findings. She does describe some difficulty swallowing at times and this may be contributing to her ongoing infection. Will go ahead and request a barium swallow. 02/03/2025 the patient is here for a pulmonary follow-up visit. Continues to have similar complaints. Difficulty swallowing feeling like food getting stuck in her chest area. She was supposed to get a barium swallow but apparently she became sick and she had to reschedule the few times. She has not had the ability to do so. In addition to that she continued to smoke. She has been trying to get ready to quit. I did give her prescription for Chantix. She is working with her psychiatrist to make sure that she can take it safely. She believe she is going to started sometime in March when she is ready. In the meantime she should continue to cut down the smoking as it is affecting her health. We did look at her last CT scan of the chest that was done back in April 2024 personally by me demonstrating slight areas of atelectasis and some minimal degree of emphysema. She has been responding well to the azithromycin for the chronic bronchitis. In addition to that she does have some rhonchi on exam she should be using her Symbicort more regularly. Will follow-up in 6 months if she has any issues prior to this she will call for an earlier assessment. [facility] Medical History External hemorrhoids with complication Anal fissure Thymus hyperplasia Pulmonary nodule Abnormal chest x-ray Chronic bronchitis Asthma Chest pain Morbid obesity Essential hypertension Surgical History History of section Family History Father HTN (hypertension) Hypercholesteremia Mother Migraines Brother No problems noted. Sister No problems noted. Daughter No problems noted. Paternal Grandmother Migraines Daughter Kawasaki disease Daughter Autism spectrum disorder Other Mental health disorder Social History Housing: House Alcohol intake: never Patient Tobacco Use Status: Current everyday Tobacco user Tobacco use type: Cigarette Cigarettes Per Day: 10 Years Smoked: 20 e-Cigarette/Vaping Use: Never Used service: No Current occupational status: unemployed Cognitive needs: No Hearing needs: No Vision needs: No Review of Systems Const Denies chills and Denies fever(s) ENT Reports dysphagia, Denies epistaxis and Denies nasal discharge Card Denies chest pain and Reports dyspnea on exertion Resp Denies chest congestion, Reports cough, Denies hemoptysis, Denies pain on inspiration, Denies pain with cough and Reports dyspnea on exertion GI Reports dysphagia, Denies diarrhea and Denies nausea Skin/Breast Denies rash Neuro Reports no additional complaints, Denies Abnormal speech present and Denies Sensory deficit (Neuro) Psych Reports no additional complaints Endo Reports no additional complaints Physical Exam Vital Signs: Last Vital Signs Pulse 90 02/03/25 09:51 BP 116/72 02/03/25 09:51 Pulse Ox 98 02/03/25 09:51 Oxygen Delivery Method Room Air 02/03/25 09:51 BMI result Body Mass Index 38.0 Const General: comfortable Orientation/consciousness: patient oriented x3 HEENT Ears: TM abnormal erythematous Neck Neck: Yes normal visual inspection, Yes full ROM and Yes no lymphadenopathy Chest Chest palpation & inspection: normal inspection of the chest Resp Effort & Inspection: normal respiratory effort Auscultation: diminished lung sounds Cardio Rate: regular rate Rhythm: regular rhythm Heart sounds: S1 normal heart sound present and S2 normal heart sound present GI Palpation (GI): Soft to palpation and nontender Auscultation: normal bowel sounds General: Yes no CVA tenderness Back/Spine/Pelvis Back: no CVA tenderness Skin General skin exam: rashes and/or lesions noted Neuro General: patient oriented x3 Speech: No Abnormal speech present Sensory Exam: No Sensory deficit (Neuro) Assessment & Plan Assessment & Plan (1) Asthma: Code(s): J45.909 - Unspecified asthma, uncomplicated Category: Medical Qualifiers: Asthma complication type: uncomplicated Asthma persistence: persistent Asthma severity: severe Qualified Code(s): J45.50 - Severe persistent asthma, uncomplicated (2) Chronic bronchitis: Code(s): J42 - Unspecified chronic bronchitis Category: Medical Qualifiers: Chronic bronchitis type: mucopurulent Qualified Code(s): J41.1 - Mucopurulent chronic bronchitis (3) Smoker: Code(s): F17.200 - Nicotine dependence, unspecified, uncomplicated Category: Social Hx (4) Pulmonary nodule: Comment: better Code(s): R91.1 - Solitary pulmonary nodule Category: Medical (5) 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 Category: Medical Plan continue Azithromycin MWF, needs an EKG smoking cessation; considering chantix conitnue symbicort FELISA as needed barium swallow F/U 4-6 months Medications: New varenicline tartrate (Chantix Starting Month Box) PO PER PKG DIR 42 ea 0RF azithromycin Take 1 tablet on Friday/Friday/Friday 250 mg PO 3XW 12 tabs 6RF 28 days K21.9 - Gastro-esophageal reflux disease without esophagitis Refilled budesonide-formoterol 160-4.5 mcg/actuation (Symbicort) 2 puffs inhalation BID 10.2 grams 11RF 30 days J44.9 - Chronic obstructive pulmonary disease, unspecified Coding Level of Care Code Est Pt Level 4 (58304) Diagnoses Severe persistent asthma without complication J45.50 Asthma complication type: uncomplicated Asthma persistence: persistent Asthma severity: severe Mucopurulent chronic bronchitis J41.1 Chronic bronchitis type: mucopurulent Smoker F17.200 Pulmonary nodule R91.1 Thymus hyperplasia E32.0 Time Spent (min) 17
[2025-02-03 09:51] VITALS: BP 116/72; PULSE 90; O2SAT 98; BMI 38.0
--- OUTSIDE RECORDS SUMMARY | 2025-02-03 10:49 | XMS_ITS | Clinical Summary ---
Author Organization [address] [place] [address] [place] [phone] Phone Care Team Providers Care Metal Neutralizer Name Role Phone Physician, No Pcp Primary [...] for muscle spasms. 30 tablet 5 Active ibuprofen (ADVIL,MOTRIN) 600 mg tablet Take 1 tablet (600 mg total) by mouth 3 (three) times a day if needed for mild pain (pain). 60 tablet 5 03/19/20 25 Active Encounters Date Type Department Care Team Description 01/18/2025 9:45 AM EDT Office Visit [facility] [address] [phone] Jalen Smart MD Symptoms of upper respiratory infection (URI) (Primary Dx) from Last 3 Months Social History Tobacco Use Types Packs/Day Years Used Date Smoking Tobacco: Never Assessed Comments Unknown Sex and Gender Information Value Date Recorded Sex Assigned at Not on file Legal Sex Female 7:19 AM EST Gender Identity Not on file Sexual Orientation Not on file Last Filed Vital Signs Vital Sign Reading Time Taken Comments Blood Pressure 128/90 01/18/2025 9:42 AM EDT Pulse 87 01/18/2025 9:42 AM EDT Temperature 36.1 ??C (97 ??F) 01/18/2025 9:42 AM EDT Respiratory Rate - - Oxygen Saturation 98% 01/18/2025 9:42 AM EDT Inhaled Oxygen Concentration - - Weight - [...] Screening: Pap Smear 2003 COVID-19 Vaccine ( - 2023- season) 2024 03/07/2022, 02/14/2022 Cholesterol Screening (Lipid [...] on patient's age to complete this topic Procedures Procedure Name Priority Date/Time Associated Diagnosis Comments POC RAPID STREP A Routine 01/18/2025 10: 08 AM EDT Symptoms of upper respiratory infection (URI) POC RAPID [id number], MOLECULAR Routine 01/18/2025 10:08 AM EDT Symptoms of upper respiratory infection (URI) from Last 3 Months Results * Poc Rapid [id number], MOLECULAR (01/18/2025 10:08 AM EDT) COVID-19/SARS- COV-2 Rapid POC Negative Negative Swab Nasopharyngeal structure / Unknown 01/18/2025 10:08 AM EDT us Jalen Smart MD POINT OF CARE TEST ENTER/EDIT OR DERABLES Final Result * POC rapid strep A manually resulted (01/18/2025 10:08 AM EDT) Rapid Strep A Screen POC Negative Negative Swab Structure of anterior portion of neck / Unknown 01/18/2025 10:08 AM EDT us Jalen Smart MD POINT OF CARE TEST ENTER/EDIT OR DERABLES Final Result from Last 3 Months Insurance MEDICARE MEDICAID - [place] Care Teams Metal Neutralizer Relationship Specialty Start Date End Date Physician, No Pcp PCP - General 07/10/24
== END 2025-02-03 10:15 | disposition home or self-care (01) ==
LOC: HO.HPS 09:48
PROVIDERS: PCP Internal Medicine; Visit Provider Hospitalist
DX: J45.50 Severe persistent asthma, uncomplicated (principal); J41.1 Mucopurulent chronic bronchitis; F17.200 Nicotine dependence, unspecified, uncomplicated; R91.1 Solitary pulmonary nodule; E32.0 Persistent hyperplasia of thymus
CPT/HCPCS: 99214

== ENCOUNTER → 2025-02-03 09:47 | Outpatient (BNVA) | payer MEDICARE, MEDICAID, SELFPAY | PROVIDERS: PCP Internal Medicine; Visit Provider Hospitalist | DX: J45.50 Severe persistent asthma, uncomplicated (principal); J41.1 Mucopurulent chronic bronchitis; R91.1 Solitary pulmonary nodule; E32.0 Persistent hyperplasia of thymus; F17.210 Nicotine dependence, cigarettes, uncomplicated | CPT/HCPCS: 99212 ==

== ENCOUNTER 2025-06-23 10:13 | Outpatient (AMB) | payer MEDICARE, MEDICAID, SELFPAY ==
--- NOTE | 2025-06-23 10:25 | MHC.OFFVIS ---
Vital Signs 06/23/25 10:36 Height 5 ft 4 in Weight 216 lb 6 oz BMI 37.1 BP 136/74 Blood Pressure Location Rt brachial Position Sitting Pulse 99 Intake Visit Reasons: Hemorrhoids, re-discuss surgery Intake Note: This patient presents for an assessment to discuss hemorrhoidectomy. Pt c/o: occasional rectal bleeding. Plant Cytologist Required: No Accompanied by: Self / Same As Patient Allergies lamotrigine (From LAMICTAL) Allergy (Intermediate, Verified 06/23/25 10:37) RASH Penicillins (PENICILLINS) Allergy (Intermediate, Verified 06/23/25 10:37) RASH prednisone (PREDNISONE) Allergy (Intermediate, Verified 06/23/25 10:37) AGITATION, anger, agitation, agitated mental/emotional status penicillin V Allergy (Unknown, Verified 06/23/25 10:37) Agitated Environmental [hx allergy shot Allergy (Unknown, Uncoded 06/23/25 10:37) Unknown HPI HPI Hemorrhoids, re-discuss surgery: Details: [age] year old female who is known to me, here for hemorrhoids. I had been following her for this over the past few years. I had last seen her in the office in January,. At that time, she had complained of significant pain with passage of stools. She was noted to have an anal fissure along with her large hemorrhoids then. She says that anal fissure had improved significantly However, she says that she continues to have frequent swelling, pain, and bleeding with the hemorrhoids and this has been affecting her life style now She therefore wants to proceed with hemorrhoidectomy She is a known smoker. She also is obese. She has tardive dyskinesia as well. She says she has a history of recurrent pneumonias after she had COVID 5 years ago. [facility] Medical History Internal and external bleeding hemorrhoids External hemorrhoids with complication Anal fissure Thymus hyperplasia Pulmonary nodule Abnormal chest x-ray Chronic bronchitis Asthma Chest pain Morbid obesity Essential hypertension Surgical History History of section Family History Father HTN (hypertension) Hypercholesteremia Mother Migraines Brother No problems noted. Sister No problems noted. Daughter No problems noted. Paternal Grandmother Migraines Daughter Kawasaki disease Daughter Autism spectrum disorder Other Mental health disorder Social History Housing: House Alcohol intake: never Patient Tobacco Use Status: Current everyday Tobacco user Tobacco use type: Cigarette Cigarettes Per Day: 10 Years Smoked: 20 e-Cigarette/Vaping Use: Never Used service: No Current occupational status: unemployed Cognitive needs: No Hearing needs: No Vision needs: No Review of Systems Const Denies chills and Denies fever(s) Card Denies chest pain, Denies dyspnea and Denies dyspnea on exertion Resp Denies cough, Denies dyspnea and Denies dyspnea on exertion GI Denies hematochezia and Denies change in bowel habits Denies hematuria Musc Denies back pain and Denies limited range of motion Neuro Details: Some tremors of the jaw Denies focal weakness and Denies convulsions Psych Denies depression and Denies mood swings Physical Exam Const General: comfortable and no acute distress Nutritional Appearance: obese Orientation/consciousness: patient oriented x3 Neck Neck: Yes no lymphadenopathy Resp Auscultation: clear to auscultation bilaterally Cardio Rhythm: regular rhythm GI Other: Rectal exam shows large external hemorrhoids, multiple along with prolapse of internal component Palpation (GI): Soft to palpation, nontender and no guarding Neuro General: patient oriented x3 Assessment & Plan Assessment & Plan (1) Internal and external bleeding hemorrhoids: Code(s): K64.4 - Residual hemorrhoidal skin tags; K64.8 - Other hemorrhoids Category: Medical Plan: She is known to have large hemorrhoids, a mix of internal external. She has a long history of frequent swelling, pain as well as bleeding with her hemorrhoids. She says she really wants to proceed with hemorrhoidectomy now. I had a long discussion with her about the technique of exam under anesthesia and hemorrhoidectomy. I explained the risks including but not limited to bleeding, infections, sphincter injury, so pain, as well as the benefits and alternatives. I reviewed with her what to expect postoperatively. She does understand that with her smoking history as well as her obesity, does present with anesthesia risks. She has given consent. Coding Level of Care Code Est Pt Level 3 (71751) Diagnoses Internal and external bleeding hemorrhoids K64.4; K64.8
[2025-06-23 10:36] VITALS: BP 136/74; PULSE 99; BMI 37.1
--- OUTSIDE RECORDS SUMMARY | 2025-06-23 12:22 | XMS_ITS | Encounter Summary ---
Author Organization [facility] Address [address] [address] Phone Care Team Providers Care Glass Lined Tank Repairer Name Role Phone Pcp, Not Required Primary Care Provider Loretta Buitrago MD, MSc Unavailable [phone] Unknown, Unknown Primary Care Provider Shruthi Montana MD Primary Care Provider [phone] Reason for Visit * Reason Comments Medication Refill Encounter Details Date Type Department Care Team (Late st Contact Info) Description 12/08/2018 Refill [facility] [address] [facility], [address] [place] [address] Loretta Quintero MD, MSc [address] [place] [phone] [email or web address] Medication Refill Social History Tobacco Use Types Packs/Day Years Used Date Smoking Tobacco: Every Day Cigarettes Alcohol Use Standard Drinks/Week Comments Not Asked 0 (1 standard drink = 0.6 oz pur e alcohol) Comments Unknown Sex and Gender Information Value Date Recorded Sex Assigned at Not on file Legal Sex Female 7:08 PM EST Gender Identity Not on file Sexual Orientation Not on file documented as of this encounter Plan of Treatment Upcoming Encounters Date Type Department Care Team (Late st Contact Info) Description 07/06/2025 1:00 PM EST Telemedicine [facility] [address] [place] [address] Lashay Wei, [place], TRAIN ELECTRONIC TECHNICIAN - C 50 [facility] 4th [place] [address] [email or web address] 12/19/2025 10:30 AM EDT Telemedicine [facility] [address] [facility] [address] [place] [address] Mehul Armstrong MD 50 [facility], [address] [place] [address] [email or web address] documented as of this encounter Visit Diagnoses Not on filedocumented in this encounter Care Teams Glass Lined Tank Repairer Relationship Specialty Start Date End Date Pcp, Not Required [address] [place] [address] PCP - General 02/22/14 06/26/23 Unknown, Unknown, MD PCP - General 06/27/23 11/04/23 Shruthi Castro MD [address] [facility] [address] PCP - General Internal Medicine 11/05/23 Loretta Quintero MD, MSc [address] [place] [phone] [email or web address] Consulting Provider Psychiatry 03/24/17 documented as of this encounter Additional Source Comments The information contained in this document represents components of the legal health record. It is not the complete legal health record.[facility]
--- OUTSIDE RECORDS SUMMARY | 2025-06-23 12:22 | XMS_ITS | Encounter Summary ---
Author Organization [facility] Address [address] [address] Phone Care Team Providers Care Shingle Weaver Name Role Phone Pcp, Not Required Primary Care Provider Loretta Buitrago MD, MSc Unavailable [phone] Unknown, Unknown Primary Care Provider Shruthi Montana MD Primary Care Provider [phone] Reason for Visit * Reason Comments Medication Refill Encounter Details Date Type Department Care Team (Late st Contact Info) Description 08/22/2020 Refill [facility] [address] [facility], [address] [place] [address] Loretta Quintero MD, MSc [address] [place] [phone] [email or web address] Medication Refill Social History [...] Info) Description 07/06/2025 1:00 PM EST Telemedicine [facility] 50 [facility] [address] [place] [address] Lashay Wei, [place], BLENDER/BRAZE APPLICATOR - C 50 [facility] 4th [place] [address] [email or web address] 12/19/2025 10:30 AM EDT Telemedicine [facility] [address] [facility] [address] [place] [address] Mehul Armstrong MD 50 [facility], [address] [place] [address] [email or web address] du documented as of this encounter Visit Diagnoses Not on filedocumented in this encounter Care Teams Shingle Weaver Relationship Specialty Start Date End Date Pcp, Not Required [address] [place] [address] PCP - General 02/22/14 06/26/23 Unknown, Unknown, MD PCP - General 06/27/23 11/04/23 Shruthi Castro MD [address] [facility] [place] [address] PCP - General Internal Medicine 11/05/23 Loretta Quintero MD, MSc [address] [place] [phone] [email or web address] Consulting Provider Psychiatry 03/24/17 documented as of this encounter Additional Source Comments The information contained in this document represents components of the legal health record. It is not the complete legal health record.[facility]
--- OUTSIDE RECORDS SUMMARY | 2025-06-23 12:22 | XMS_ITS | Encounter Summary ---
Author Organization [facility] Address [address] [address] Phone Care Team Providers Care Supervisor Paint Roller Covers Name Role Phone Pcp, Not Required Primary Care Provider Loretta Buitrago MD, MSc Unavailable [phone] Unknown, Unknown Primary Care Provider Shruthi Montana MD Primary Care Provider [phone] Reason for Visit * Reason Onset Date Comments Medication Prior Authorization 07/08/2022 Encounter Details Date Type Department Care Team (Late Contact Info) Description 07/08/[address], [address] [place] [address] Loretta Quintero MD, MSc [address] [place] [phone] [email or web address] Medication Prior Authorization Social History Tobacco Use Types Packs/Day Years Used Date Smoking Tobacco: Every Day Cigarettes Smokeless Tobacco: Never Alcohol Use Standard Drinks/Week Comments Not Asked [...] Encounters Date Type Department Care Team (Late Contact Info) Description 07/06/2025 1:00 PM EST Telemedicine [facility] [address] [facility] [address] [place] [address] Lashay Wei, [place], STAFFING RECRUITER - C 50 [facility] 4th [place] [address] [email or web address] 12/19/2025 10:30 AM EDT Telemedicine [facility] 50 [facility] [address] [place] [address] Mehul Armstrong MD 50 [facility], [address]th [address] [place] [address] [email or web address] du documented as of this encounter Visit Diagnoses Not on filedocumented in this encounter Additional Health Concerns Assessment Noted Time PHQ-9 Depression Total Score: 13 022 4:25 PM EST PHQ-2 Depression Total Score: 4 07/04/20 22 4:25 PM EST documented as of this encounter Care Teams Supervisor Paint Roller Covers Relationship Specialty Start Date End Date Pcp, Not Required [address] [place] [phone] PCP - General 02/22/14 06/26/23 Unknown, Unknown, MD PCP - General 06/27/23 11/04/23 Shruthi Castro MD [address] [facility] [place] [address] PCP - General Internal Medicine 11/05/23 Loretta Quintero MD, MSc [address] [place] [phone] [email or web address] Consulting Provider Psychiatry 03/24/17 documented as of this encounter Additional Source Comments The information contained in this document represents components of the legal health record. It is not the complete legal health record.[facility]
--- OUTSIDE RECORDS SUMMARY | 2025-06-23 12:22 | XMS_ITS | Encounter Summary ---
Author Organization [facility] Address [address] [address] Phone Care Team Providers Care Feedmobile Driver Name Role Phone Pcp, Not Required Primary Care Provider Loretta Buitrago MD, MSc Unavailable [phone] Unknown, Unknown Primary Care Provider Shruthi Montana MD Primary Care Provider [phone] Reason for Visit * Reason Comments Other Encounter Details Date Type Department Care Team (Late st Contact Info) Description 02/04/2017 Refill [facility] [address] [facility], [address] [place] [address] Loretta Quintero MD, MSc [address] [place] [phone] [email or web address] Other Social History Tobacco Use Types Packs/Day Years [...] Info) Description 07/06/2025 1:00 PM EST Telemedicine [facility] [address] [place] [address] Lashay Wei DNP, STAVE PLANER TENDER - C 50 [facility] 4th [place] [address] [email or web address] 12/19/2025 10:30 AM EDT Telemedicine [facility] [address] [facility] [address] [place] [address] Mehul Armstrong MD 50 [facility], 4th [address] [place] [address] [email or web address] du documented as of this encounter Visit Diagnoses Not on filedocumented in this encounter Care Teams Feedmobile Driver Relationship Specialty Start Date End Date Pcp, Not Required [address] [place] [address] PCP - General 02/22/14 06/26/23 Unknown, Unknown, MD PCP - General 06/27/23 11/04/23 Shruthi Castro MD [address] [facility] [place] [address] PCP - General Internal Medicine 11/05/23 Loretta Quintero MD, MSc [address] [place] [phone] [email or web address] Consulting Provider Psychiatry 03/24/17 documented as of this encounter Additional Source Comments The information contained in this document represents components of the legal health record. It is not the complete legal health record.[facility]
--- OUTSIDE RECORDS SUMMARY | 2025-06-23 12:22 | XMS_ITS | Clinical Summary ---
Author Organization [facility] Address [address] [address] Phone Care Team Providers Care Ship Purser Name Role Phone Loretta Quintero MD, MSc Unavailable [phone] Shruthi Castro MD Primary Care Provider Allergies Active Allergy Reactions Criticality Noted Date Comments Duloxetine Other (See Comments) 11/21/2006 anxiety Methylphenidate Other (See Comments) 10/09/2007 agitation Pramipexole Other (See Comments) 06/06/2005 rash Ziprasidone Other (See Comments) Medium 05/04/2010 Agitation Medications * This document contains information received from the source organization and may not represent a complete record from that organization. ondansetron (ZOFRAN) 8 MG tablet Take 1 tablet (8 mg total) by mouth every 8 (eight) hours as needed for nausea. 30 tablet 7 Active albuterol 2.5 mg /3 mL (0.083 %) nebulizer solution INHALE 1 VIAL VIA NEBULIZER EVERY 6 HOURS FOR 30 DAYS NEEDED FOR SHORTNESS OF BREATH OR WHEEZING 2 Active SYMBICORT 160-4.5 mcg/actuation inhaler Inhale 2 puffs into the lungs 2 (two) times a day. 2 Active COMBIVENT RESPIMAT 20-100 mcg/actuation Mist TAKE 1 PUFF(S) (INHALATION) 4 TIMES PER DAY FOR 14 DAYS 2 Active BD INSULIN PEN NEEDLE UF SHORT 31 gauge x 5/16 Ndle Use one new needle with each injection of ozempic every 7 days 100 each 1 4 Active varenicline tartrate (CHANTIX REUBEN) 0.5 mg (11)- 1 mg (42) tablet Give with meals and with a full glass of water. 53 tablet 5 Active ARIPiprazole (ABILIFY) 10 MG tablet Take 1 tablet (10 mg total) by mouth daily. Take with 5mg tab for a total of 15mg 90 tablet 1 5 Active tirzepatide, weight loss, (ZEPBOUND) 10 mg/0.5 mL subcutaneous penIndications:Cl ass 2 severe obesity with serious comorbidity and body mass index (BMI) of 37.0 to 37.9 in adult, unspecified obesity type Inject 0.5 mL (10 mg total) under the skin every 7 days. 6 mL 1 5 Active ARIPiprazole (ABILIFY) 5 MG tablet Take 1 tablet (5 mg total) by mouth daily. Take with the 10mg tab for a total of 15mg/day 90 tablet 1 5 07/18/20 25 Active LORazepam (ATIVAN) 0.5 MG tablet Take 1 tablet (0.5 mg total) by mouth nightly at bedtime. May also take 1 tablet (0.5 mg total) daily as needed for anxiety (agitation). 180 tablet 5 08/01/20 25 Active perphenazine (TRILAFON) 16 MG tablet Take 1 tablet (16 mg total) by mouth nightly at bedtime. Take in addition to the two 4mg tabs (8mg) for a total of 24mg QHS 90 tablet 5 08/01/20 25 Active perphenazine (TRILAFON) 4 MG tablet Take 2 tablets (8 mg total) by mouth nightly at bedtime. May also take 1 tablet (4 mg total) daily as needed (agitation). Take two tanbs (8mg) with the 16mg at night for a total of 24mg. Can take an additional 4mg during the day as needed for agitation.. 270 tablet 5 08/01/20 25 Active tirzepatide, weight loss, (ZEPBOUND) 12.5 mg/0.5 mL subcutaneous penIndications:Cl ass 2 severe obesity with serious comorbidity and body mass index (BMI) of 37.0 to 37.9 in adult, unspecified obesity type Inject 0.5 mL (12.5 mg total) under the skin every 7 days. Start after completing 4 weeks of Zepbound 10 mg subcu weekly 2 mL 2 5 Active Active Problems Patient Care Coordination No te Formatting of this note migh t be different from the original. Pt does not have access to [facility] - please call mobile number for care coordination: 08/30/24 (TL) Problem Noted Date Diagnosed Date Adverse effect of psychotropic drug 05/07/2024 Assessment & Plan (05/07/2024 11:06 AM EDT): Chronic.H/o anxiety, depression, and bipolar 1 disorder with prior hospitalizations. Now stable on perphenazine and aripiprazole, but has experienced significant weight reagin with these therapies that has been c/w obesity and obesity associated complications - Continue behavioral/lifestyle therapy - Continue semaglutide for the management of psychotropic medications induced weight gain with obesity associated complications Primary hypertension 04/01/2022 Assessment & Plan (02/04/2025 11:26 AM EDT): Chronic. Stable. Has been able to stop amlodipine and HCTZ per recommendation of PCP. - Reviewed treating obesity to target improvement in HTN Assessment & Plan (06/27/2023 9:26 AM EDT): Chronic. Stable. Has been able to stop amlodipine at recommendation of PCP. Remains on HCTZ - Reviewed treating obesity to target improvement in HTN Asthma 04/01/2022 Migraine 04/01/2022 Anxiety 04/01/2022 Depression 04/01/2022 Class 2 severe obesity with serious comorbidity and body mass index (BMI) of 37.0 to 37.9 in adult 04/01/2022 Overview (10/06/2024): Onest: adult onset Contributing factors: a genetic component related to a strong family of obesity, exposure to weight gain promoting medication(s), increased consumption of high calorie/processed foods, poor sleep quality, eating high-calorie foods and grazing/irregular meal patterns Obesity associated co-morbidities: hypertension, elevated LFTs s/o non alcoholic fatty liver disease, s/sx of sleep apnea and depression, prediabetes Maximum lifetime weight: 286 lbs Initial weight at initial obesity medicine visit: 272 lbs Initial BMI at initial Obesity Medicine visit: Body mass index is 46.69 kg/m . Treatment History: Surgery: none Pharmacologic: Prior: Orlistat: d/c due to GI intolerance Phentermine: d/c due to inadequate weight loss Bupropion/naltrexone: d/c due to agitation and inadequate weight loss Topiramate: Had weight loss response, then intolerable mental fog/cognitive changes Metformin: d/c intolerable side effects Semaglutide (Ozempic/Wegovy): 04/01/2022 at 286 lbs, BMI 49.1 - 08/2024; transition to Zepbound Current: Tirzepatide (Zepbound): started 08/2024 (baseline was 286 lbs, BMI 49.1) Assessment & Plan (04/05/2025 9:40 AM EDT): Assessment: Suzie Choudhury is a 44 y.o. female with adult onset class III obesity (Body mass index is 37.76 kg/m .) with serious comorbidity, HTN, asthma, migraine, anxiety, depression, bipolar 1 disorder who presents for the continue evaluation and management of obesity. The control of obesity is improved on the current regimen, and stable since the previous visit. She is experienced a 66 pound weight loss (23% weight loss to the combination of behavioral/lifestyle therapy and pharmacotherapy with GLP-1 receptor agonist therapy. She is currently tolerating Zepbound 10 mg subcu weekly with notable improvement in nausea compared to semaglutide. Will continue Zepbound 10 mg SQ weekly while attempting to optimize nutrition routine. We reviewed calorie goals and protein goals. Will later consider dose escalation if the nutrition routine is improved and the control of obesity is stable. Will follow up in 1 month in [facility]. We reviewed that antiobesity pharmacotherapy is intended for chronic use as an adjunct of behavioral/lifestyle therapy. We reviewed risks, benefits, side effects, and titration plan. Will continue to optimize behavioral/lifestyle therapy. Of note, she has been involved in a comprehensive behavioral/lifestyle therapy for at least 6 months that aims to target a moderate, 500-calorie deficit diet and increase activity targeting 150 inturned minutes per week of moderate aerobic activity. Other antiobesity medication considerations: Phentermine, phentermine/topiramate, and naltrexone/bupropion are contraindicated in the setting of bipolar 1 disorder. Would be hesitant about topiramate given past use with intolerable cognitive changes. May consider zonisamide in coordination with psychiatry team. May rechallenge with metformin. Plan: Dietary plan: Moderate (500 calorie deficit), [id number] babatunde/day Encouraged to have a consistent meal routine to avoid meal skipping and snacking/grazing Eliminate fast food and sugar sweetened drinks Limit ultraprocessed foods Physical Activity plan: Gradually increase activity to achieve > 150/200 minutes of moderate intensity aerobic exercise per week spread out over 3-5 sessions Gradually add 2-3 sessions per week of resistance training of major muscle groups Behavioral/Lifestyle recommendations: Track weight weekly Track intake and activity daily Medical Management of Obesity: Continue Zepbound 10 mg subcu weekly Surgical Management of Obesity: Discussed - deferred Labs: None Other: None Health Maintenance: f/u PCP prn. [facility] with FREIGHT BOOKER and 4 months with me Assessment & Plan (02/04/2025 11:46 AM EDT): Assessment: Suzie Choudhury is a 44 y.o. female with adult onset class III obesity (Body mass index is 37.93 kg/m .) with serious comorbidity, HTN, asthma, migraine, anxiety, depression, bipolar 1 disorder who presents for the continue evaluation and management of obesity. The control of obesity is improved on the current regimen, and stable since the previous visit. She is experienced a 65 pound weight loss (22.7% weight loss to the combination of behavioral/lifestyle therapy and pharmacotherapy with GLP-1 receptor agonist therapy. She is currently tolerating Zepbound 10 mg subcu weekly with notable improvement in nausea compared to semaglutide. Will continue Zepbound 10 mg SQ weekly. We reviewed that antiobesity pharmacotherapy is intended for chronic use as an adjunct of behavioral/lifestyle therapy. We reviewed risks, benefits, side effects, and titration plan. Will continue to optimize behavioral/lifestyle therapy. Other antiobesity medication considerations: Phentermine, phentermine/topiramate, and naltrexone/bupropion are contraindicated in the setting of bipolar 1 disorder. Would be hesitant about topiramate given past use with intolerable cognitive changes. May consider zonisamide in coordination with psychiatry team. May rechallenge with metformin. Plan: Dietary plan: Moderate (500 calorie deficit), [id number] babatunde/day Encouraged to have a consistent meal routine to avoid meal skipping and snacking/grazing Eliminate fast food and sugar sweetened drinks Limit ultraprocessed foods Physical Activity plan: Gradually increase activity to achieve > 150/200 minutes of moderate intensity aerobic exercise per week spread out over 3-5 sessions Gradually add 2-3 sessions per week of resistance training of major muscle groups Behavioral/Lifestyle recommendations: Track weight weekly Track intake and activity daily Medical Management of Obesity: Continue Zepbound 10 mg subcu weekly Surgical Management of Obesity: Discussed - deferred Labs: None Other: None Health Maintenance: f/u PCP prn. [facility] with FREIGHT BOOKER and 6 months with me Assessment & Plan (10/06/2024 10:34 AM EST): Assessment: Suzie Choudhury is a 44 y.o. female with adult onset class III obesity (Body mass index is 39.31 kg/m .) with serious comorbidity, HTN, asthma, migraine, anxiety, depression, bipolar 1 disorder who presents for the continue evaluation and management of obesity. The control of obesity is improved on the current regimen, and stable since the previous visit. She is experienced a 57 pound weight loss (19.9% weight loss to the combination of behavioral/lifestyle therapy and pharmacotherapy with GLP-1 receptor agonist therapy. She is currently tolerating Zepbound 5 mg subcu weekly with notable improvement in nausea compared to semaglutide. Will continue to titrate Zepbound as described below. We reviewed that antiobesity pharmacotherapy is intended for chronic use as an adjunct of behavioral/lifestyle therapy. We reviewed risks, benefits, side effects, and titration plan. Will continue to optimize behavioral/lifestyle therapy. Other antiobesity medication considerations: Phentermine, phentermine/topiramate, and naltrexone/bupropion are contraindicated in the setting of bipolar 1 disorder. Would be hesitant about topiramate given past use with intolerable cognitive changes. May consider zonisamide in coordination with psychiatry team. May rechallenge with metformin. Plan: Dietary plan: Moderate (500 calorie deficit), [id number] babatunde/day Encouraged to have a consistent meal routine to avoid meal skipping and snacking/grazing Eliminate fast food and sugar sweetened drinks Limit ultraprocessed foods Physical Activity plan: Gradually increase activity to achieve > 150/200 minutes of moderate intensity aerobic exercise per week spread out over 3-5 sessions Gradually add 2-3 sessions per week of resistance training of major muscle groups Behavioral/Lifestyle recommendations: Track weight weekly Track intake and activity daily Medical Management of Obesity: Continue to titrate Zepbound Current: Zepbound 5 mg subcu weekly Weeks 1-4: Zepbound 7.5 mg subcu weekly Weeks 5+: Zepbound 10 mg subcu weekly Surgical Management of Obesity: Discussed - deferred Labs: None Other: None Health Maintenance: f/u PCP prn. [facility] with FREIGHT BOOKER and 6 months with me Assessment & Plan (05/07/2024 11:10 AM EDT): Assessment: Suzie Choudhury is a 43 y.o. female with adult onset class III obesity (Body mass index is 39.31 kg/m .) with serious comorbidity, HTN, asthma, migraine, anxiety, depression, bipolar 1 disorder who presents for the continue evaluation and management of obesity. The control of obesity remains overall improved on the current regimen, but declined since the prior visit in the setting of reduced semaglutide dose.. She had experienced a 71 lbs weight loss (24.8% TBWL) response to the combination of behavioral/lifestyle and pharmacotherapy. The current weight represents a 57 pound weight loss (19.9% weight loss) response to combination of behavioral/lifestyle therapy and pharmacotherapy with semaglutide. She has been tolerating semaglutide 1.0 mg subcu weekly, and will attempt to increase to semaglutide 2.0 mg subcu weekly. Will continue comprehensive behavioral/lifestyle therapy. We discussed insurance and access barriers to semaglutide. We reviewed that anti-obesity pharmacotherapy is intended for chronic use (weight loss and weight loss maintenance) as an adjunct to behavioral/lifestyle therapy. We reviewed that metabolic/bariatric surgery may be considered for the treatment of obesity. She is interested in further exploring the possibility of metabolic/bariatric surgery if not having access to pharmacotherapy. She will be referred to the surgical program. Will continue behavioral/lifestyle therapy. Other antiobesity medication considerations: I would be cautious about phentermine-containing regimens as well as bupropion-containing regimens given her history of bipolar 1 disorder and increased activating symptoms with bupropion. Would be hesitant about topiramate given past use with intolerable cognitive changes. May consider zonisamide in coordination with psychiatry team. May rechallenge with metformin. Plan: Dietary plan: Moderate (500 calorie deficit), [phone] babatunde/day Encouraged to have a consistent meal routine to avoid meal skipping and snacking/grazing Eliminate fast food and sugar sweetened drinks Limit ultraprocessed foods Physical Activity plan: Gradually increase activity to achieve > 150/200 minutes of moderate intensity aerobic exercise per week spread out over 3-5 sessions Gradually add 2-3 sessions per week of resistance training of major muscle groups Behavioral/Lifestyle recommendations: Track weight weekly Track intake and activity daily Medical Management of Obesity: Increase semaglutide to 2.0 mg subcu weekly Surgical Management of Obesity: Discussed - deferred Labs: None Other: None Health Maintenance: f/u PCP prn. [facility] with FREIGHT BOOKER and 6 months with me Assessment & Plan (01/29/2024 3:20 PM EDT): Suzie Choudhury has been struggling since her last visit. Now she cannot maintain Wegovy 2.4 mg because Medicare wasn't covered. She had 3 month supply of Ozempic available (6 weeks of 1 mg remaining). She has lost > 70 lbs. She wants to appeal the decision since she is pre-diabetic. This blood work is through her PCP. She will get this to us. Dietary modification was not sufficient to manage A1C. Metformin was not tolerated. Plan -Cont dietary monitoring -Cont increasing physical activity as tolerated -Cont Ozempic 1 pm: will attempt PA for management of prediabetes since she did not tolerate Metformin -increase to 2 mg in the future -f/u with Dr Armstrong as scheduled -f/u with me PRN Assessment & Plan (11/05/2023 11:07 AM EDT): Assessment: Suzie Choudhury is a 43 y.o. female with adult onset class III obesity (Body mass index is 36.9 kg/m .) with serious comorbidity, HTN, asthma, migraine, anxiety, depression, bipolar 1 disorder who presents for the continue evaluation and management of obesity. The control of obesity is improving with current regimen. She has experienced a 71 lbs weight loss (24.8% TBWL) response to the combination of behavioral/lifestyle and pharmacotherapy. She is currently tolerating semaglutide 2.4mg SQ weekly with active and ongoing weight loss response. We will continue semaglutide 2.4 mg SQ weekly in combination with comprehensive behavioral/lifestyle therapy. We reviewed that anti-obesity pharmacotherapy is intended for chronic use (weight loss and weight loss maintenance) as an adjunct to behavioral/lifestyle therapy. Will continue behavioral/lifestyle therapy. Other antiobesity medication considerations: I would be cautious about phentermine-containing regimens as well as bupropion-containing regimens given her history of bipolar 1 disorder and increased activating symptoms with bupropion. Would be hesitant about topiramate given past use with intolerable cognitive changes. May consider zonisamide in coordination with psychiatry team. May rechallenge with metformin. Plan: Dietary plan: Moderate (500 calorie deficit), [phone] babatunde/day Encouraged to have a consistent meal routine to avoid meal skipping and snacking/grazing Eliminate fast food and sugar sweetened drinks Limit ultraprocessed foods Physical Activity plan: Gradually increase activity to achieve > 150/200 minutes of moderate intensity aerobic exercise per week spread out over 3-5 sessions Gradually add 2-3 sessions per week of resistance training of major muscle groups Behavioral/Lifestyle recommendations: Track weight weekly Track intake and activity daily Medical Management of Obesity: Continue Wegovy 2.4 mg SQ weekly Surgical Management of Obesity: Discussed - deferred Labs: Request lab results from external facility Other: None Health Maintenance: f/u PCP prn. [facility] with FREIGHT BOOKER and 6 months with me Assessment & Plan (06/27/2023 9:28 AM EDT): Assessment: Suzie Choudhury is a 42 y.o. female with adult onset class III obesity (Body mass index is 37.93 kg/m .) with serious comorbidity, HTN, asthma, migraine, anxiety, depression, bipolar 1 disorder who presents for the continue evaluation and management of obesity. The control of obesity is improving with current regimen. She has experienced a 65 lbs weight loss (22.7 % TBWL) response to the combination of behavioral/lifestyle and pharmacotherapy. She is currently tolerating semaglutide 2.0 mg SQ weekly with active and ongoing weight loss response. Will continue semaglutide 2.0 mg SQ weekly in combination with comprehensive behavioral/lifestyle therapy. We reviewed that anti-obesity pharmacotherapy is intended for chronic use (weight loss and weight loss maintenance) as an adjunct to behavioral/lifestyle therapy. Will continue behavioral/lifestyle therapy. Reviewed that metabolic/bariatric surgery remains medically indicated given the severity of disease - deferred. Other antiobesity medication considerations: I would be cautious about phentermine-containing regimens as well as bupropion-containing regimens given her history of bipolar 1 disorder and increased activating symptoms with bupropion. Would be hesitant about topiramate given past use with intolerable cognitive changes. May consider zonisamide in coordination with psychiatry team. May rechallenge with metformin. Plan: 1. Dietary plan: a. Moderate (500 calorie deficit), [id number] babatunde/day b. Encouraged to have a consistent meal routine to avoid meal skipping and snacking/grazing c. Eliminate fast food and sugar sweetened drinks d. Limit ultraprocessed foods 2. Physical Activity plan: a. Gradually increase activity to achieve > 150/200 minutes of moderate intensity aerobic exercise per week spread out over 3-5 sessions b. Gradually add 2-3 sessions per week of resistance training of major muscle groups 3. Behavioral/Lifestyle recommendations: a. Track weight weekly b. Track intake and activity daily 4. Medical Management of Obesity: a. Continue Ozempic 2.0 mg SQ weekly i. If Ozempic 2.0 mg is not available, then temporarily decrease to Ozempic 1.0 mg SQ weekly. 5. Surgical Management of Obesity: a. Discussed - deferred 6. Labs: a. No additional labs at this time 7. Other: a. None 8. Health Maintenance: f/u PCP prn. 9. [facility] with FREIGHT BOOKER and 4 months with me Assessment & Plan (02/19/2023 1:49 PM EDT): Assessment: Suzie Escobar Macey is a 42 y.o. female with adult onset class III obesity (Body mass index is 39.99 kg/m .) with serious comorbidity, HTN, asthma, migraine, anxiety, depression, bipolar 1 disorder who presents for the continue evaluation and management of obesity. Control of obesity is improving with current regimen. She has experienced a 53 lbs weight loss (18.5 % TBWL) response to the combination of behavioral/lifestyle and pharmacotherapy. She is currently tolerating semaglutide 1.0 mg SQ weekly, following temporary decreased dose while evaluating other symptoms with PCP. Will continue semaglutide 1.0 mg SQ weekly in combination with comprehensive behavioral/lifestyle therapy. We reviewed that metabolic/bariatric surgery remains medically indicated given the severity of disease. She would prefer to avoid MBS at this time. Open to further considering at a later time if medication therapy is not effective. Other antiobesity medication considerations: I would be cautious about phentermine-containing regimens as well as bupropion-containing regimens given her history of bipolar 1 disorder and increased activating symptoms with bupropion. Would be hesitant about topiramate given past use with intolerable cognitive changes. May consider zonisamide in coordination with psychiatry team. May rechallenge with metformin. Plan: 1. Dietary plan: a. Moderate (500 calorie deficit), [id number] babatunde/day b. Encouraged to have a consistent meal routine to avoid meal skipping and snacking/grazing c. Eliminate fast food and sugar sweetened drinks d. Limit ultraprocessed foods 2. Physical Activity plan: a. Gradually increase activity to achieve > 150/200 minutes of moderate intensity aerobic exercise per week spread out over 3-5 sessions b. Gradually add 2-3 sessions per week of resistance training of major muscle groups 3. Behavioral/Lifestyle recommendations: a. Track weight weekly b. Track intake and activity daily 4. Medical Management of Obesity: a. Continue Ozempic 1.0 mg SQ weekly 5. Surgical Management of Obesity: a. Discussed - deferred 6. Labs: a. No additional labs at this time 7. Other: a. None 8. Health Maintenance: f/u PCP prn. 9. [facility] Assessment & Plan (08/13/2022 11:55 AM EST): Assessment: Suzie Choudhury is a 42 y.o. female with adult onset class III obesity (Body mass index is 42.57 kg/m .) with serious comorbidity, HTN, asthma, migraine, anxiety, depression, bipolar 1 disorder who presents for the continue evaluation and management of obesity. Control of obesity is improving with current regimen. She has experienced a 32 lbs weight loss (11.4 % TBWL) response to the combination of behavioral/lifestyle and pharmacotherapy. She is currently tolerating semaglutide 1.0 mg SQ weekly with slow, ongoing weight loss. We reviewed logistical issues impacting access to semaglutide. Will attempt to maintain semaglutide 1.0 mg SQ weekly at this time. We discussed the future possibility of increasing semaglutide if/when available. We discussed that if semaglutide 1.0 mg SQ weekly is not available, then may transition to liraglutide temporarily. Discussed risks, benefits, side effects, transition plan if needed. Continue comprehensive behavioral/lifestyle therapy. We reviewed that metabolic/bariatric surgery remains medically indicated given the severity of disease. She would prefer to avoid MBS at this time. Open to further considering at a later time if medication therapy is not effective. Other antiobesity medication considerations: I would be cautious about phentermine-containing regimens as well as bupropion-containing regimens given her history of bipolar 1 disorder and increased activating symptoms with bupropion. Would be hesitant about topiramate given past use with intolerable cognitive changes. May consider zonisamide in coordination with psychiatry team. May rechallenge with metformin. Plan: 1. Dietary plan: a. Moderate (500 calorie deficit), [id number] babatunde/day b. Encouraged to have a consistent meal routine to avoid meal skipping and snacking/grazing c. Eliminate fast food and sugar sweetened drinks d. Limit ultraprocessed foods 2. Physical Activity plan: a. Gradually increase activity to achieve > 150/200 minutes of moderate intensity aerobic exercise per week spread out over 3-5 sessions b. Gradually add 2-3 sessions per week of resistance training of major muscle groups 3. Behavioral/Lifestyle recommendations: a. Track weight weekly b. Track intake and activity daily 4. Medical Management of Obesity: a. Continue Ozempic 1.0 mg SQ weekly 5. Surgical Management of Obesity: a. Discussed - deferred 6. Labs: a. No additional labs at this time 7. Other: a. None 8. Health Maintenance: f/u PCP prn. 9. F/u with the [facility] Center in 2-3 months Assessment & Plan (05/20/2022 1:24 PM EDT): Assessment: Suzie Choudhury is a 41 y.o. female with adult onset class III obesity (Body mass index is 45.83 kg/m .) with serious comorbidity, HTN, asthma, migraine, anxiety, depression, bipolar 1 disorder who presents for the continue evaluation and management of obesity. Control of obesity is improving with current regimen. She has experienced a 13 lbs weight loss (4.6 % TBWL) response to the combination of behavioral/lifestyle and pharmacotherapy. She is currently tolerating semaglutide 0.5 mg SQ weekly with minimal, infrequent nausea. Will continue gradual titration of semaglutide as described below. Continue comprehensive behavioral/lifestyle therapy. We reviewed that metabolic/bariatric surgery remains medically indicated given the severity of disease. She would prefer to avoid MBS at this time. Open to further considering at a later time if medication therapy is not effective. Other antiobesity medication considerations: I would be cautious about phentermine-containing regimens as well as bupropion-containing regimens given her history of bipolar 1 disorder and increased activating symptoms with bupropion. Would be hesitant about topiramate given past use with intolerable cognitive changes. May consider zonisamide in coordination with psychiatry team. May rechallenge the metformin. Plan: 1. Dietary plan: a. Moderate (500 calorie deficit), [id number] babatunde/day b. Encouraged to have a consistent meal routine to avoid meal skipping and snacking/grazing c. Eliminate fast food and sugar sweetened drinks d. Limit ultraprocessed foods 2. Physical Activity plan: a. Gradually increase activity to achieve > 150/200 minutes of moderate intensity aerobic exercise per week spread out over 3-5 sessions b. Gradually add 2-3 sessions per week of resistance training of major muscle groups 3. Behavioral/Lifestyle recommendations: a. Track weight weekly b. Track intake and activity daily 4. Medical Management of Obesity: a. Continue Ozempic i. Titration: Weeks 1-4: semaglutide 0.5 mg SQ weekly Weeks 5+: semaglutide 1.0 mg SQ weekly 5. Surgical Management of Obesity: a. Discussed - deferred 6. Labs: a. No additional labs at this time 7. Other: a. Continue evaluation of elevated LFTs with PCP b. Establish with sleep medicine for DANIEL evaluation 8. Health Maintenance: f/u PCP prn. 9. F/u with the Weight Center in 2 months 10. Assessment & Plan (04/01/2022 12:09 PM EDT): Assessment: Suzie Choudhury is a 41 y.o. female with adult onset class III obesity (Body mass index is 46.69 kg/m .) with serious comorbidity, HTN, asthma, migraine, anxiety, depression, bipolar 1 disorder who presents to the [facility] interested in behavioral and pharmacological treatments for obesity. The causes of her obesity are multifactorial and may include a genetic component related to a strong family of obesity, exposure to weight gain promoting medication(s), increased consumption of high calorie/processed foods, inadequate sleep duration and poor sleep quality. Additionally, there arefew behavioral contributors which include,eating high- calorie foods, grazing/irregular meal patterns and excessive hunger/ lack of satiety signals. She is motivated and committed to losing weight. We dicussed that behavioral/lifestyle, pharmacotherapy, and metabolic/bariatric surgery are medically indicated given the severity of disease, presence of obesity associated conditions, and resistance to more conservative therapy. We discussed the average weight loss response to various medication therapies as well as the sleeve gastrectomy and Jeanine-en-Y gastric bypass. We discussed that antiobesity medication therapy is intended for chronic use (weight loss and weight loss maintenance). We discussed that surgical therapy is the most effective long-term treatment for obesity. She is amenable to surgery, but would prefer to trial medication therapy with behavioral/lifestyle therapy prior to further pursuing surgery. So, we will trial medication and behavioral/lifestyle therapy knowing that if medication is not effective to treat her obesity then we will further pursue surgery. Will continue to discuss surgery at subsequent encounters. We discussed financial/insurance barriers as well as risks/benefits of antiobesity medication therapies. We will plan to start semaglutide off label as Ozempic as described below. We reviewed risks, benefits, side effects, injection technique, and titration plan. She has no personal history of pancreatitis no personal or family history of multiple endocrine neoplasia or medullary thyroid cancer. We will initiate comprehensive behavioral/lifestyle therapy as described below. Other antiobesity medication considerations: I would be cautious about phentermine-containing regimens as well as bupropion-containing regimens given her history of bipolar 1 disorder and increased activating symptoms with bupropion. Would be hesitant about topiramate given past use with intolerable cognitive changes. May consider zonisamide in coordination with psychiatry team. May rechallenge the metformin. Plan: 1. Dietary plan: a. Moderate (500 calorie deficit), [phone] babatunde/day b. Encouraged to have a consistent meal routine to avoid meal skipping and snacking/grazing c. Eliminate sugar sweetened drinks d. Referred to manufacturing industrial engineer 2. Physical Activity plan: a. Gradually increase activity to achieve > 150/200 minutes of moderate intensity aerobic exercise per week spread out over 3-5 sessions b. Gradually add 2-3 sessions per week of resistance training of major muscle groups 3. Behavioral/Lifestyle recommendations: a. Track weight weekly b. Track intake and activity daily 4. Medical Management of Obesity: a. Start Ozempic i. Titration: Weeks 1-4: semaglutide 0.25 mg SQ weekly Weeks 5-8: semaglutide 0.5 mg SQ weekly Week 9: semaglutide 1.0 mg SQ weekly 5. Surgical Management of Obesity: a. Discussed - deferred 6. Labs: a. No additional labs at this time 7. Other: a. Continue evaluation of elevated LFTs with PCP b. Establish with sleep medicine for DANIEL evaluation 8. Health Maintenance: f/u PCP prn. 9. F/u with the [facility] Center in 6-8 weeks Bipolar 1 disorder, depressed, full remission Encounters Date Type Department Care Team Description 05/06/2025 E-Visit [facility] E-Vis[facility] [address] [place] [address] Mehul Armstrong MD E-Visit for Weight Control 05/03/2025 10:30 AM EDT Telemedicine [facility] [address] [facility], [address] [place] [address] Gretel Meeks MD Bipolar I disorder, most recent episode (or current) manic (Primary Dx); Adjustment disorder with mixed anxiety and depressed mood; Generalized anxiety disorder; Extrapyramidal and movement disorder 04/19/[address], [address] [place] [address] Gretel Meeks MD Med Change Request 04/05/2025 9:00 AM EDT Telemedicine [facility] [address] [facility] [address] [place] [address] Mehul Armstrong MD Class 2 severe obesity with serious comorbidity and body mass index (BMI) of 37.0 to 37.9 in adult, unspecified obesity type (Primary Dx) 04/05/2025 Refill [facility] [address] [facility] [address] [address] [place] [address] Mehul Armstrong MD Med Change Request 03/30/2025 1:30 PM EDT Telemedicine [address], [address] [place] [address] Gretel Meeks MD Bipolar I disorder, most recent episode (or current) manic (Primary Dx); Adjustment disorder with mixed anxiety and depressed mood; Generalized anxiety disorder; Tardive dyskinesia; Tobacco use disorder from Last 3 Months Family History Medical History Relation Comments Anxiety disorder Brother Depression Mother Alcohol abuse Paternal Grandmother Relation Status Comments Brother Mother Paternal Grandmother Social History Tobacco Use Types Packs/Day Years Used Date Smoking Tobacco: Every Day Cigarettes Smokeless Tobacco: Never Tobacco Cessation:Ready to Q uit: No; Counseling Given: Yes Alcohol Use Standard Drinks/Week Comments Not Asked 0 (1 standard drink = 0.6 oz pur e alcohol) Education Answer Date Recorded Are you interested in more education? Not on jadon e 12/19/2022 Are you concerned about learning? Not on file 12/19/2022 No 12/19/2022 No 12/19/2022 Digital Access Answer Date Recorded No 01/20/2023 No 01/20/2023 Reliable internet access at home? Not on file 01/20/2023 Device with a working camera? Not on file Comments Unknown Sex and Gender Information Value Date Recorded Sex Assigned at Not on file Legal Sex Female 7:08 PM EST Gender Identity Not on file Sexual Orientation Not on file Last Filed Vital Signs Vital Sign Reading Time Taken Comments Blood Pressure - - Pulse - - Temperature - - Respiratory Rate - - Oxygen Saturation - - Inhaled Oxygen Concentration - - Weight 99.8 kg (220 lb) 05/09/2025 6:38 AM EDT Height 162.6 cm (5' 4 ) 04/05/2025 9:19 AM EDT Body Mass Index 37.76 04/05/2025 9:19 AM EDT Plan of Treatment Upcoming Encounters Date Type Department Care Team (Late st Contact Info) Description 07/06/2025 1:00 PM EST Telemedicine [facility] [address] [facility] [address] [facility] [address] [place] [address] Lashay Wei, DNP, MANAGER QA - C [address] [facility] [address] [place] [address] [email or web address] 12/19/2025 10:30 AM EDT Telemedicine [facility] [address] [place] [address] Mehul Armstrong MD [address] [facility], [address]th [address] [place] [address] [email or web address] Health Maintenance Due Date Last Done Comments BLOOD PRESSURE 1982 SMOKING Hx and SMOKELESS TOBACCO SCREENING 1995 HEPATITIS C SCREENING 2000 HIV ONE-TIME SCREENING (18-65 YEARS) 2000 PNEUMOCOCCAL VACCINES (0-49 years) (1 of 2 - PCV) 2001 PAP SMEAR 2003 SCREENING FOR DIABETES 2017 MAMMOGRAM 2022 DEPRESSION SCREENING 10/21/2024 10/21/2023, 10/03/19 23 INFLUENZA VACCINE (#1) 2025 , 07/21/2019, 05/14/2018, Additional history exists COVID-19 VACCINE ( season) 2025 03/07/2022, 02/14/2022 Adult Td,Tdap Booster 05/05/2029 05/05/2019, 015 HEPATITIS A VACCINES Aged Out No long er eligible based on patient's age to complete this topic HIB VACCINES Aged Out No longer eligi ble based on patient's age to complete this topic MENINGOCOCCAL VACCINES (ACWY) Aged Out No longer eligible based on patient's age to complete this topic MENINGOCOCCAL VACCINES (B) Aged Out N o longer eligible based on patient's age to complete this topic Medical Devices Not on file Insurance MEDICARE PART A & B [facility] & B [facility] & [facility] & [facility] PART A & B [facility] PART A & B [facility] MED[facility] PART A & B [place] [facility] Care Teams Ship Purser Relationship Specialty Start Date End Date Shruthi Castro MD [address] [facility] [place] [address] PCP - General Internal Medicine 11/05/23 Loretta Quintero MD, MSc [email or web address] Consulting Provider Psychiatry 03/24/17 Additional Source Comments The information contained in this document represents components of the legal health record. It is not the complete legal health record.[facility]
--- OUTSIDE RECORDS SUMMARY | 2025-06-23 12:22 | XMS_ITS | Encounter Summary ---
Author Organization [facility] Address [address] [address] Phone Care Team Providers Care Millwright Helper Name Role Phone Pcp, Not Required Primary Care Provider Loretta Buitrago MD, MSc Unavailable [phone] Unknown, Unknown Primary Care Provider Shruthi Montana MD Primary Care Provider [phone] Reason for Visit * Reason Comments Medication Refill Encounter Details Date Type Department Care Team (Late st Contact Info) Description 09/15/2017 Refill [facility] [address] [facility], [address] [place] [address] Loretta Quintero MD, MSc [address] [place] [address] [phone] [email or web address] Medication Refill Social History Tobacco Use Types [...] Info) Description 07/06/2025 1:00 PM EST Telemedicine [facility] [address] [facility] [address] [place] [address] Lashay Wei, [place], CUSTOM TAILOR - C [address] [facility] 4th [place] [address] [email or web address] 12/19/2025 10:30 AM EDT Telemedicine [facility] [address] [place] [address] Mehul Armstrong MD [address] [facility], 4th [address] [place] [address] [email or web address] documented as of this encounter Visit Diagnoses Not on filedocumented in this encounter Care Teams Millwright Helper Relationship Specialty Start Date End Date Pcp, Not Required [address] [place] [address] PCP - General 02/22/14 06/26/23 Unknown, Unknown, MD PCP - General 06/27/23 11/04/23 Shruthi Castro MD [address] [facility] [place] [place] [address] PCP - General Internal Medicine 11/05/23 Loretta Quintero MD, MSc [address] [place] [phone] [email or web address] Consulting Provider Psychiatry 03/24/17 documented as of this encounter Additional Source Comments The information contained in this document represents components of the legal health record. It is not the complete legal health record.[facility]
--- OUTSIDE RECORDS SUMMARY | 2025-06-23 12:22 | XMS_ITS | Encounter Summary ---
Author Organization [facility] Address [address] [address] Phone Care Team Providers Care Academic Guidance Specialist Name Role Phone Pcp, Not Required Primary Care Provider Loretta Buitrago MD, MSc Unavailable [phone] Unknown, Unknown Primary Care Provider Shruthi Montana MD Primary Care Provider [phone] Reason for Visit * Reason Comments Other Encounter Details Date Type Department Care Team (Late st Contact Info) Description 12/02/2016 Refill [facility] [address] [facility], [address] [place] [address] Loretta Quintero MD, MSc [address] [place] [address] [phone] [email or web address] Other Social History Tobacco Use Types Packs/Day [...] Info) Description 07/06/2025 1:00 PM EST Telemedicine [facility] [address] [place] [address] Lashay Wei DNP, SECTION CUTTER - C [address] [facility] 4th [place] [address] [email or web address] 12/19/2025 10:30 AM EDT Telemedicine [facility] [address] [facility] [address] [place] [address] Mehul Armstrong MD [address] [facility], [address]th [address] [place] [address] [email or web address] du documented as of this encounter Visit Diagnoses Not on filedocumented in this encounter Care Teams Academic Guidance Specialist Relationship Specialty Start Date End Date Pcp, Not Required [address] [place] [address] PCP - General 02/22/14 06/26/23 Unknown, Unknown, MD PCP - General 06/27/23 11/04/23 Shruthi Castro MD [address] [place] [address] PCP - General Internal Medicine 11/05/23 Loretta Quintero MD, MSc [address] [place] [phone] [email or web address] Consulting Provider Psychiatry 03/24/17 documented as of this encounter Additional Source Comments The information contained in this document represents components of the legal health record. It is not the complete legal health record.[facility]
--- OUTSIDE RECORDS SUMMARY | 2025-06-23 12:22 | XMS_ITS | Encounter Summary ---
Author Organization [facility] Address [address] [address] Phone Care Team Providers Care Meat Cutting Teacher Name Role Phone Pcp, Not Required Primary Care Provider Loretta Buitrago MD, MSc Unavailable [phone] Unknown, Unknown Primary Care Provider Shruthi Montana MD Primary Care Provider Reason for Visit * Reason Comments Medication Refill Encounter Details Date Type Department Care Team (Late st Contact Info) Description 04/03/2018 Refill [facility] [address] [facility], [address] [place] [address] Loretta Quintero MD, MSc [address] [place] [address] [phone] [email or web address] Medication Refill Social [...] Info) Description 07/06/2025 1:00 PM EST Telemedicine [facility] [address] [facility] [address] [facility] [address] [place] [address] Lashay Wei, [place], POPULATION HEALTH MANAGER - C 50 [facility] 4th [place] [address] [email or web address] 12/19/2025 10:30 AM EDT Telemedicine [facility] [address] [facility] [address] [place] [address] Mehul Armstrong MD 50 [facility], 4th [address] [place] [address] [email or web address] du documented as of this encounter Visit Diagnoses Not on filedocumented in this encounter Care Teams Meat Cutting Teacher Relationship Specialty Start Date End Date Pcp, Not Required [address] [place] [address] PCP - General 02/22/14 06/26/23 Unknown, Unknown, MD PCP - General 06/27/23 11/04/23 Shruthi Castro MD [address] [facility] [place] [address] PCP - General Internal Medicine 11/05/23 Loretta Quintero MD, MSc [address] [place] [phone] [email or web address] Consulting Provider Psychiatry 03/24/17 documented as of this encounter Additional Source Comments The information contained in this document represents components of the legal health record. It is not the complete legal health record.[facility]
--- OUTSIDE RECORDS SUMMARY | 2025-06-23 12:22 | XMS_ITS | Encounter Summary ---
Author Organization [facility] Address [address] [address] Phone Care Team Providers Care Textile Slitting Machine Operator Name Role Phone Pcp, Not Required Primary Care Provider Loretta Buitrago MD, MSc Unavailable [phone] Unknown, Unknown Primary Care Provider Shruthi Montana MD Primary Care Provider [phone] Reason for Visit * Reason Comments Medication Refill Encounter Details Date Type Department Care Team (Late st Contact Info) Description 06/14/2018 Refill [facility] [address] [facility], [address] [place] [address] Loretta Quintero MD, MSc [address] [place] [address] [phone] [email or web address] Medication Refill Social History Tobacco Use Types [...] Info) Description 07/06/2025 1:00 PM EST Telemedicine [facility] [address] [place] [address] Lashay Wei, [place], AVIONICS SUPERVISOR - C 50 [facility] 4th [place] [address] [email or web address] 12/19/2025 10:30 AM EDT Telemedicine [facility] [address] [facility] [address] [place] [address] Mehul Armstrong MD [address] [facility], 4th [address] [place] [address] [email or web address] du documented as of this encounter Visit Diagnoses Not on filedocumented in this encounter Care Teams Textile Slitting Machine Operator Relationship Specialty Start Date End Date Pcp, Not Required [address] [place] [address] PCP - General 02/22/14 06/26/23 Unknown, Unknown, MD PCP - General 06/27/23 11/04/23 Shruthi Castro MD [address] [facility] [place] [address] PCP - General Internal Medicine 11/05/23 Loretta Quintero MD, MSc [address] [place] [phone] [email or web address] Consulting Provider Psychiatry 03/24/17 documented as of this encounter Additional Source Comments The information contained in this document represents components of the legal health record. It is not the complete legal health record.[facility]
--- OUTSIDE RECORDS SUMMARY | 2025-06-23 12:22 | XMS_ITS | Encounter Summary ---
Author Organization [facility] Address [address] [address] Phone Care Team Providers Care Hand Fur Cleaner Name Role Phone Pcp, Not Required Primary Care Provider Loretta Buitrago MD, MSc Unavailable [phone] Unknown, Unknown Primary Care Provider Shruthi Montana MD Primary Care Provider [phone] Reason for Visit * Reason Comments Medication Refill Encounter Details Date Type Department Care Team (Late st Contact Info) Description 10/16/[address] [facility] [address] [facility], [address] [place] [address] Loretta Quintero MD, MSc [address] [place] [address] [phone] [email or web address] Medication Refill Social History Tobacco Use Types [...] Info) Description 07/06/2025 1:00 PM EST Telemedicine [facility] 50 [facility] [address] [place] [address] Lashay Wei, [place], CORPORATE COUNSELOR - C 50 [facility] 4th [place] [address] [email or web address] 12/19/2025 10:30 AM EDT Telemedicine [facility] Weight Center [address] [place] [address] Mehul Armstrong MD 50 [facility], 4th [address] [place] [address] [email or web address] du documented as of this encounter Visit Diagnoses Not on filedocumented in this encounter Care Teams Hand Fur Cleaner Relationship Specialty Start Date End Date Pcp, Not Required [address] [place] [address] PCP - General 02/22/14 06/26/23 Unknown, Unknown, MD PCP - General 06/27/23 11/04/23 Shruthi Castro MD [address] [facility] [place] [address] PCP - General Internal Medicine 11/05/23 Loretta Quintero MD, MSc [address] [place] [phone] [email or web address] Consulting Provider Psychiatry 03/24/17 documented as of this encounter Additional Source Comments The information contained in this document represents components of the legal health record. It is not the complete legal health record.[facility]
--- OUTSIDE RECORDS SUMMARY | 2025-06-23 12:22 | XMS_ITS | Encounter Summary ---
Author Organization [facility] Address [address] [address] Phone Care Team Providers Care Remote Broadcast Engineer Name Role Phone Pcp, Not Required Primary Care Provider Loretta Buitrago MD, MSc Unavailable [phone] Unknown, Unknown Primary Care Provider Shruthi Montana MD Primary Care Provider [phone] Reason for Visit * Reason Comments Medication Refill Encounter Details Date Type Department Care Team (Late st Contact Info) Description 01/11/2018 Refill [facility] 15 [facility], [address] [place] [address] Loretta Quintero MD, MSc [address] [place] [address] [phone] [email or web address] Medication Refill Social History Tobacco Use Types [...] Info) Description 07/06/2025 1:00 PM EST Telemedicine [facility] Weight [facility] 50 [facility] [address] [place] [address] Lashay Wei, SD, PLASTIC TILE SETTER - C 50 [facility] 4th [place] [address] [email or web address] 12/19/2025 10:30 AM EDT Telemedicine [facility] Weight Center [address] [place] [address] Mehul Armstrong MD [address] [facility], 4th [address] [place] [address] [email or web address] du documented as of this encounter Visit Diagnoses Not on filedocumented in this encounter Care Teams Remote Broadcast Engineer Relationship Specialty Start Date End Date Pcp, Not Required [address] [place] [address] PCP - General 02/22/14 06/26/23 Unknown, Unknown, MD PCP - General 06/27/23 11/04/23 Shruthi Castro MD [address] [place] [address] PCP - General Internal Medicine 11/05/23 Loretta Quintero MD, MSc [address] [place] [phone] [email or web address] Consulting Provider Psychiatry 03/24/17 documented as of this encounter Additional Source Comments The information contained in this document represents components of the legal health record. It is not the complete legal health record.[facility]
--- OUTSIDE RECORDS SUMMARY | 2025-06-23 12:22 | XMS_ITS | Encounter Summary ---
Author Organization [facility] Address [address] [address] Phone Care Team Providers Care Usability Architect Name Role Phone Pcp, Not Required Primary Care Provider Loretta Buitrago MD, MSc Unavailable [phone] Unknown, Unknown Primary Care Provider Shruthi Montana MD Primary Care Provider [phone] Reason for Visit * Reason Comments Medication Refill Encounter Details Date Type Department Care Team (Late st Contact Info) Description 08/17/2017 Refill [facility] 15 [facility], [address] [place] [address] Loretta Quintero MD, MSc [address] [place] [address] [phone] [email or web address] Medication Refill Social History [...] Description 07/06/2025 1:00 PM EST Telemedicine [facility] Weight [facility] 50 [facility] [address] [place] [address] Lashay Wei, SD, RN ADVICE - C [address] [facility] 4th [place] [address] [email or web address] 12/19/2025 10:30 AM EDT Telemedicine [facility] Weight [facility] [address] [facility] [facility] [address] [place] [address] Mehul Armstrong MD [address] [facility], [address] [place] [address] [email or web address] du documented as of this encounter Visit Diagnoses Not on filedocumented in this encounter Care Teams Usability Architect Relationship Specialty Start Date End Date Pcp, Not Required [address] [place] [address] PCP - General 02/22/14 06/26/23 Unknown, Unknown, MD PCP - General 06/27/23 11/04/23 Shruthi Castro MD [address] [facility] [place] [address] PCP - General Internal Medicine 11/05/23 Loretta Quintero MD, MSc [address] [place] [phone] [email or web address] Consulting Provider Psychiatry 03/24/17 documented as of this encounter Additional Source Comments The information contained in this document represents components of the legal health record. It is not the complete legal health record.[facility]
--- OUTSIDE RECORDS SUMMARY | 2025-06-23 12:22 | XMS_ITS | Encounter Summary ---
Author Organization [facility] Address [address] [address] Phone Care Team Providers Care Assistant Customer Service Manager Name Role Phone Pcp, Not Required Primary Care Provider Loretta Buitrago MD, MSc Unavailable Unknown, Unknown Primary Care Provider Shruthi Montana MD Primary Care Provider [phone] Reason for Visit * Reason Comments Medication Refill Encounter Details Date Type Department Care Team (Late st Contact Info) Description 09/15/2017 Refill [facility] 15 [facility], [address] [place] [address] Loretta Quintero MD, MSc [address] [place] [address] [phone] [email or web address] Medication [...] Info) Description 07/06/2025 1:00 PM EST Telemedicine [facility] Weight Center 50 [facility] [address] [place] [address] Lashay Wei, [place], SMOKING PIPES CLEANER - C 50 [facility] 4th [place] [address] [email or web address] 12/19/2025 10:30 AM EDT Telemedicine [facility] Weight Center [address] [facility] [address] [place] [address] Mehul Armstrong MD 50 [facility], 4th [address] [place] [address] [email or web address] du documented as of this encounter Visit Diagnoses Not on filedocumented in this encounter Care Teams Assistant Customer Service Manager Relationship Specialty Start Date End Date Pcp, Not Required [address] [place] [address] PCP - General 02/22/14 06/26/23 Unknown, Unknown, MD PCP - General 06/27/23 11/04/23 Shruthi Castro MD [address] [facility] [place] [address] PCP - General Internal Medicine 11/05/23 Loretta Quintero MD, MSc [address] [place] [phone] [email or web address] Consulting Provider Psychiatry 03/24/17 documented as of this encounter Additional Source Comments The information contained in this document represents components of the legal health record. It is not the complete legal health record.[facility]
--- OUTSIDE RECORDS SUMMARY | 2025-06-23 12:22 | XMS_ITS | Encounter Summary ---
Author Organization [facility] Address [address] [address] Phone Care Team Providers Care Thermostat Repairer Name Role Phone Loretta Quintero MD, MSc Unavailable Shruthi Castro MD Primary Care Provider [phone] Encounter Details Date Type Department Care Team (Late st Contact Info) Description 07/30/2024 Telephone [facility] Administrative [address] [place] [address] Tamika Kelley [address] [place] [address] [email or web address] Social History Tobacco Use Types Packs/Day Years [...] Info) Description 07/06/2025 1:00 PM EST Telemedicine [facility] Weight Center [address] [facility] [facility] [address] [place] [address] Lashay Wei DNP, PLANNER INTERN - C 50 [facility] 4th [place] [address] [email or web address] 12/19/2025 10:30 AM EDT Telemedicine [facility] Weight Center [address] [facility] [facility] [address] [place] [address] Mehul Armstrong MD 50 [facility], 4th [address] [place] [address] [email or web address] documented as of this encounter Visit Diagnoses Not on filedocumented in this encounter Additional Health Concerns Assessment Noted Time PHQ-9 Depression Total Score: 7 10/03/19 23 6:13 PM EST PHQ-2 Depression Total Score: 2 10/21/19 24 9:31 AM EST documented as of this encounter Care Teams Thermostat Repairer Relationship Specialty Start Date End Date Shruthi Castro MD [address] [facility] [place] [id number] PCP - General Internal Medicine 11/05/23 Loretta Quintero MD, MSc [email or web address] Consulting Provider Psychiatry 03/24/17 documented as of this encounter Additional Source Comments The information contained in this document represents components of the legal health record. It is not the complete legal health record.[facility]
--- OUTSIDE RECORDS SUMMARY | 2025-06-23 12:22 | XMS_ITS | Clinical Summary ---
Author Organization [address] [place] [address] [place] [phone] Phone Care Team Providers Care Loader Malt House Name Role Phone Physician, No Pcp Primary [...] 87 01/18/2025 9:42 AM EDT Temperature 36.1 C (97 F) 01/18/2025 9:42 AM EDT Respiratory Rate - [...] 5 Years) and At-Risk Patients (6 to 49 Years) (1 of 2 - PCV) 2001 Cervical Cancer Screening: Pap Smear 2003 HPV Vaccines (1 - 3-dose SCDM series) 2009 Cholesterol Screening (Lipid Panel) 07/10/2024 HIV Screening 07/10/2024 Hepatitis C Screening 07/10/2024 Hypertension/CHF/CAD Annual BMP Blood Test 07/10/2024 Medicare Annual Wellness Visit 07/10/2024 Social Influencers of Health Screening 07/10/2024 Depression Screening 08/25/2024 COVID-19 Vaccine (3 - 2024- season) 2025 03/07/2022, 02/14/2022 Influenza Vaccine (#1) 2025 , 09/07/2021, 07/21/2019, Additional history exists DTaP,Tdap,and Td Vaccines (3 - Td or Tdap) 05/05/2029 05/05/2019, 10/05/2014 RSV Immunization Adult Patients (1 - 1-dose 75+ series) 2057 HIB Vaccines Aged Out No longer eligi [...] Insurance MEDICARE [place]ICA[place] - [place] Care Teams Loader Malt House Relationship Specialty Start Date End Date Physician, No Pcp PCP - General 07/10/24
--- OUTSIDE RECORDS SUMMARY | 2025-06-23 12:22 | XMS_ITS | Encounter Summary ---
Author Organization [facility] Address [address] [address] Phone Care Team Providers Care Brass Buffer Name Role Phone Pcp, Not Required Primary Care Provider Loretta Buitrago MD, MSc Unavailable [phone] Unknown, Unknown Primary Care Provider Shruthi Montana MD Primary Care Provider [phone] Reason for Visit * Reason Onset Date Comments Medication Refill 05/15/2022 Encounter Details Date Type Department Care Team (Late st Contact Info) Description 05/15/2022 Refill [facility] 15 [facility], [address] [place] [address] Loretta Quintero MD, MSc [address] [phone] [email or web address] Medication Refill Social History Tobacco Use Types [...] Info) Description 07/06/2025 1:00 PM EST Telemedicine [facility] 50 [facility] [address] [place] [address] Lashay Wei, [place], FINANCIAL ACCOUNTANT - C 50 [facility] 4th [place] [address] [email or web address] 12/19/2025 10:30 AM EDT Telemedicine [facility] 50 [facility] [address] [place] [address] Mehul Armstrong MD 50 [facility], 4th [address] [place] [address] [email or web address] du documented as of this encounter Visit Diagnoses Not on filedocumented in this encounter Care Teams Brass Buffer Relationship Specialty Start Date End Date Pcp, Not Required [address] [place] [address] PCP - General 02/22/14 06/26/23 Unknown, Unknown, MD PCP - General 06/27/23 11/04/23 Shruthi Castro MD [address] [facility] [place] [address] PCP - General Internal Medicine 11/05/23 Loretta Quintero MD, MSc [address] [place] [phone] [email or web address] Consulting Provider Psychiatry 03/24/17 documented as of this encounter Additional Source Comments The information contained in this document represents components of the legal health record. It is not the complete legal health record.[facility]
--- OUTSIDE RECORDS SUMMARY | 2025-06-23 12:22 | XMS_ITS | Encounter Summary ---
Author Organization [facility] Address 399 [facility] [address] [place] [address] Phone Care Team Providers Care Electric Frying Pan Repairer Name Role Phone Pcp, Not Required Primary Care Provider Loretta Buitrago MD, MSc Unavailable [phone] Unknown, Unknown Primary Care Provider Shruthi Montana MD Primary Care Provider Reason for Visit * Reason Comments Medication Refill Encounter Details Date Type Department Care Team (Late st Contact Info) Description 04/03/2022 Refill [facility] 15 [facility], [address] [place] [address] Loretta Quintero MD, MSc [address] [place] [address] [phone] [email or web address] Medication Refill Social History Tobacco Use Types [...] Info) Description 07/06/2025 1:00 PM EST Telemedicine [facility] Weight Center 50 [facility] [address] [place] [address] Lashay Wei, [place], EXPORT FREIGHT CLERK - C 50 [facility] 4th [place] [address] [email or web address] 12/19/2025 10:30 AM EDT Telemedicine [facility] Weight Center [address] [place] [address] Mehul Armstrong MD 50 [facility], 4th [address] [place] [address] [email or web address] du documented as of this encounter Visit Diagnoses Not on filedocumented in this encounter Care Teams Electric Frying Pan Repairer Relationship Specialty Start Date End Date Pcp, Not Required [address] [place] [address] PCP - General 02/22/14 06/26/23 Unknown, Unknown, MD PCP - General 06/27/23 11/04/23 Shruthi Castro MD [facility] [place] [address] PCP - General Internal Medicine 11/05/23 Loretta Quintero MD, MSc [address] [place] [phone] [email or web address] Consulting Provider Psychiatry 03/24/17 documented as of this encounter Additional Source Comments The information contained in this document represents components of the legal health record. It is not the complete legal health record.[facility]
--- OUTSIDE RECORDS SUMMARY | 2025-06-23 12:22 | XMS_ITS | Encounter Summary ---
Author Organization [facility] Address [address] [place] [address] Phone Care Team Providers Care Physician President Name Role Phone Loretta Quintero MD, MSc Unavailable Shruthi Castro MD Primary Care Provider [phone] Reason for Visit * Reason Comments Med Change Request Encounter Details Date Type Department Care Team (Late st Contact Info) Description 04/05/2025 Refill [facility] [address] [facility] [address] [place] [address] Mehul Armstrong MD 50 [facility], 4th [address] [place] [address] [email or web address] Med Change Request Social History Tobacco Use Types Packs/Day Years [...] on file documented as of this encounter Progress Notes * Lashay Wei DNP, FNP - C - 04/08/2025 10:57 AM EDT Refill not appropriate, needs to wait for PA status documented in this encounter Plan of Treatment Upcoming Encounters Date Type Department Care Team (Late st Contact Info) Description 07/06/2025 1:00 PM EST Telemedicine [facility] Weight [facility] 50 [facility] [address] [place] [address] Lashay Wei DNP, FNP - C [address] [place] [address] [address] [place] [address] [email or web address] 12/19/2025 10:30 AM EDT Telemedicine [facility] Weight Center [address] [address] Mehul Armstrong MD [address] [place] [address], 4th [address] [place] [address] [email or web address] documented as of this encounter Visit Diagnoses Diagnosis Class 2 severe obesity with serious comorbidity and body mass index (BMI) of 37.0 to 37.9 in adult, unspecified obesity type documented in this encounter Additional Health Concerns Assessment Noted Time PHQ-9 Depression Total Score: 7 10/03/19 23 6:13 PM EST PHQ-2 Depression Total Score: 2 10/21/19 24 9:31 AM EST documented as of this encounter Care Teams Physician President Relationship Specialty Start Date End Date Shruthi Castro MD [address] [facility] [place] [address] PCP - General Internal Medicine 11/05/23 Loretta Quintero MD, MSc [email or web address] Consulting Provider Psychiatry 03/24/17 documented as of this encounter Additional Source Comments The information contained in this document represents components of the legal health record. It is not the complete legal health record.[facility]
== END 2025-06-23 11:00 | disposition home or self-care (01) ==
LOC: HO.HGS 10:14
PROVIDERS: PCP Internal Medicine; Visit Provider Surgery
DX: K64.4 Residual hemorrhoidal skin tags (principal); K64.8 Other hemorrhoids
CPT/HCPCS: 99213

== ENCOUNTER → 2025-06-23 10:13 | Outpatient (BNVA) | payer MEDICARE, MEDICAID, SELFPAY | PROVIDERS: PCP Internal Medicine; Visit Provider Surgery | DX: K64.4 Residual hemorrhoidal skin tags (principal); K64.8 Other hemorrhoids | CPT/HCPCS: 99212 ==

== ENCOUNTER 2025-08-08 09:58 | Outpatient (AMB) | payer MEDICARE, MEDICAID, SELFPAY ==
[2025-08-08 10:01] VITALS: BP 140/80; PULSE 88; O2SAT 99; BMI 36.9
--- NOTE | 2025-08-08 10:01 | A.OFFVIS_ITS ---
Vital Signs 08/08/25 10:01 Height 5 ft 4 in Weight 214 lb 15.211 oz BMI 36.9 BP 140/80 H Blood Pressure Location Lt brachial Position Sitting Pulse 88 Pulse Source Pulse Oximeter Pulse Oximetry (%) 99 Oxygen Delivery Method Room Air Intake Visit Reasons: Asthma Process Equipment Operator Required: No Accompanied by: Self / Same As Patient Allergies lamotrigine (From LAMICTAL) Allergy (Intermediate, Verified 08/08/25 10:04) RASH Penicillins (PENICILLINS) Allergy (Intermediate, Verified 08/08/25 10:04) RASH prednisone (PREDNISONE) Allergy (Intermediate, Verified 08/08/25 10:04) AGITATION, anger, agitation, agitated mental/emotional status penicillin V Allergy (Unknown, Verified 08/08/25 10:04) Agitated Environmental [hx allergy shot Allergy (Unknown, Uncoded 06/23/25 10:37) Unknown HPI Comments Details: The patient is a 45 y/o woman with tobacco dependency who developed Covid 19 back in March 2021. She was evaluated at [facility] ED and discharged. CXR apperantly with pneumonia. She was treated and released. Required multiple courses of antibiotics and steroids. Ever since then she has had multiple courses of antibiotics and prednisone. She had a repeat CXR in april with minimal basilar changes. She was again sick in November and went to an urgent care and was diagnosed with pneumonia. She was given a course of levaquin and steroids. She is better but still complaining of chest tightness and burning . She is still smoking but she would like to quit. 02/06/2022 the patient is here for a pulmonary follow-up visit. Overall she is feeling a little better. She did try the Symbicort inhaler. However, I gave her thrush therefore she stopped it. She has not required it. She also was prescribed the Wellbutrin for the smoking cessation and she could not tolerate that either. She is going to be looking into hypnosis another alternative to quitting. I believe this is a good option specially since she is motivated to quitting. The overall her breathing has improved. She did have a chest x-ray that we did review and compared to her previous in appears that she is clearing the left basilar opacity area which is reassuring. We also did review the blood work. One of the laboratories was the COVID-19 antibody which is no longer present. I did emphasize to the patient that she no longer has the antibodies low for she is at high risk for getting reinfected with COVID-19. Therefore, the patient is interested in getting vaccinated. She is going to make an appointment in order to do so at her earliest convenience. The patient is going to work on weight loss and exercise and smoking cessation. Will plan to follow-up sometime in the fall with pulmonary function studies. In meantime she can go back to using the Symbicort 1 puff as needed. She needs to make sure she rinses her mouth well ideally with mouthwash after using the Symbicort. 06/06/2022 The patient is here for a sick visit. She was exposed to sick contacts (her children). She started developing a left sided pleuritic pain, mils to moderate in severity. Sometimes feels like icy hot . She has felt like this when she has developed pneumonia. She did have a CXR with interval progression of bilateral nodular opacities. She also has a cough, but non productive. She also had recent bloodwork demonstrating a left shift. 07/24/2022 the patient is here for a pulmonary follow-up visit. Overall the patient is doing better after the course of antibiotics and prednisone. She was again started to feel a chest discomfort and sometimes like a icy hot sensation. She was also having more coughing and more chest congestion of the time. Now she is better although she still complains of some shortness of breath. She still has a hacky cough. We did review her chest x-ray that she had back then. She did have any hazy opacity noted on the left mid lung zone. The patient does smoke cigarettes. Therefore, due to the fact that she continues to be symptomatic and she had an abnormal chest x-ray I will go ahead and order a CT scan of the chest to better assess density. In the meantime the patient will continue to work on smoking cessation. She does have a history of depression so therefore she was told not to use Chantix. She has had a bad reaction to Wellbutrin in the past. she will try nicotine replacement therapy. 11/19/2022 the patient is here for a pulmonary follow-up visit. Recently she called because she was having chest discomfort in addition to cough. She has it been exposed to sick contacts. She started antibiotics and she feels better. Her recent chest x-rays reassuring without any airspace disease. In addition to that, the patient did have a CT scan of the chest this year. Will personally reviewed it. The report mentioned no pulmonary nodules although I do see it nodular density in the right lower lobe measuring 6 mm in size. Patient is high risk because of his smoking history. Will plan to repeat the CT scan in 6 months. In the meantime she knows she needs to quit smoking. She is going to come up without quit contract and she is going to work on cutting down on her cigarettes now and then quit altogether on December 23. Will follow-up in [address] scan. She is going to continue with current respiratory therapy at this time. 05/20/2023 the patient is here for a telehealth visit. She could not make the appointment since she has a sick contact sick family member. The patient overall has been doing better. Back in March she did have worsening productive cough in addition to chest discomfort. Typically how she gets before pneumonia. Therefore, the patient did have an appointment with our office for an urgent visit and she was started on medications for lower respiratory infection. Symptoms did improve. In addition to that we did review her CT scan that she had recently. It appeared that the right lower lobe pulmonary nodule has decreased in size. Otherwise do see bilateral pulmonary nodules some that may be new. Therefore, in view of her smoking history and high risk for cancer the patient should get a repeat CT scan in a year's time. She is also by trying to quit smoking although is very hard for her. She wants to try is more alert nicotine patch to see if she can tolerate it since she could not tolerate the 14 mg. The patient will continue with current respiratory therapy. Will plan to follow-up in 6 months or sooner if she develops any worsening symptoms. 10/07/2023 the patient has a telehealth visit today. The patient overall has been feeling little better recently. She had been on the azithromycin 3 times a week and she was able to avoid a lower respiratory infection pneumonia until sometime in July. She has stopped taking the medication and then her kids became sick and she was exposed to sick contact and started developing respiratory symptoms. She then restart taking the azithromycin she improved. Now more recently she was exposed to again her children's illness and she started developing worsening primarily discomfort that hazy hot sensation that she feels the chest area before she did see pneumonia. The patient recently had blood work. We did reviewed. Her white counts normal and she does have slight decrease in her platelet count but I did reassure her that is a minimal change is not significant at this time. 01/27/2024 the patient is here for pulmonary follow-up visit. Overall she is doing okay. She was exposed to sick contacts. The azithromycin effective in beneficial. The patient is also working on weight loss. She lost about 70 lb using injectables. The patient continues exercises well. She is working on smoking. She was able to quit with the patch but then she went back. She is smoking significantly last time she is motivated to quitting altogether. She will continue working on cutting down. In the meantime the patient did have a CT scan back in 05/14/2023 demonstrating residual thymus tissue. Will go ahead and readdress that sometime in the fall. Lung parenchyma looks good. The patient is a smoker so therefore she is high risk for cancer. 08/03/2024 the patient is here for pulmonary follow-up visit. Overall the patient has been doing fair. She has had multiple respiratory illnesses. She had been taking the azithromycin 3 times a week with good effect although she did stop it because of GI adverse effects. And then developed worsening respiratory complaints. She went to her primary care doctor and then to urgent care. She was diagnosed with sinusitis and she was given a course of doxycycline. She was also given prednisone. She did feel better and she is feeling better although not completely. She is concerned about potential side effects from being on azithromycin long-term. At this point the azithromycin is more of an anti-inflammatory medication using for chronic bronchitis. Explained to her though that likely when she stopped smoking the inflammation will decrease and she will no longer need to be on azithromycin. She still has urinary can fullness. There is some redness of the tympanic membrane. Likely mycoplasma. Will go ahead and treated with azithromycin 500 mg for 5 days. In then she can go back on the azithromycin 250 2 to 3 times a week. She is going to work on tobacco cessation. Clinical consider Chantix whenever is okay by her psychiatrist. Also she did have a CT scan of the chest that I personally reviewed. Has not been officially read by has a minimal scarring of the lungs likely from passive infections but otherwise no significant findings. She does describe some difficulty swallowing at times and this may be contributing to her ongoing infection. Will go ahead and request a barium swallow. 02/03/2025 the patient is here for a pulmonary follow-up visit. Continues to have similar complaints. Difficulty swallowing feeling like food getting stuck in her chest area. She was supposed to get a barium swallow but apparently she became sick and she had to reschedule the few times. She has not had the ability to do so. In addition to that she continued to smoke. She has been trying to get ready to quit. I did give her prescription for Chantix. She is working with her psychiatrist to make sure that she can take it safely. She believe she is going to started sometime in March when she is ready. In the meantime she should continue to cut down the smoking as it is affecting her health. We did look at her last CT scan of the chest that was done back in April 2024 personally by me demonstrating slight areas of atelectasis and some minimal degree of emphysema. She has been responding well to the azithromycin for the chronic bronchitis. In addition to that she does have some rhonchi on exam she should be using her Symbicort more regularly. Will follow- up in 6 months if she has any issues prior to this she will call for an earlier assessment. 08/08/2025 the patient is here for pulmonary follow-up visit. She complains of worsening sinus pressure pain in nasal drainage. Yellowish in color. She is developing worsening cough. She is concerned that is going to going to her lungs. Positive sick contacts. She continues to smoke cigarettes. She is agreeable to starting the Chantix. She will start starter pack and let her has been no she is going to monitor for any depression or any other adverse effects where she will stop the medicine and she can always call. Hopefully she can not tolerate it and then she can always call to get the maintenance therapy whenever she is ready. She continues use her respiratory therapy. We did review her last CT scan of the chest which was reassuring that was back in April 2024. will plan to repeat an x-ray at this time. If she has any persistent symptoms in the x-ray is nondiagnostic we can consider getting additional imaging. Otherwise the patient follow-up in 3-4 months if any issues arise she can call. Whenever she is ready to go on the maintenance therapy of Chantix if she tolerates this starter pack then she can always call as well. [facility] Medical History Internal and external bleeding hemorrhoids External hemorrhoids with complication Anal fissure Thymus hyperplasia Pulmonary nodule Abnormal chest x-ray Chronic bronchitis Asthma Chest pain Morbid obesity Essential hypertension Surgical History History of section Family History Father HTN (hypertension) Hypercholesteremia Mother Migraines Brother No problems noted. Sister No problems noted. Daughter No problems noted. Paternal Grandmother Migraines Daughter Kawasaki disease Daughter Autism spectrum disorder Other Mental health disorder Social History Housing: House Alcohol intake: never Patient Tobacco Use Status: Current everyday Tobacco user Tobacco use type: Cigarette Cigarettes Per Day: 10 Years Smoked: 20 e-Cigarette/Vaping Use: Never Used service: No Current occupational status: unemployed Cognitive needs: No Hearing needs: No Vision needs: No Review of Systems Const Denies chills and Denies fever(s) ENT Reports dysphagia, Denies epistaxis, Reports nasal congestion, Reports nasal discharge and Reports sinus pain Card Denies chest pain and Reports dyspnea on exertion Resp Denies chest congestion, Reports cough, Denies hemoptysis, Denies pain on inspiration, Denies pain with cough and Reports dyspnea on exertion GI Reports dysphagia, Denies diarrhea and Denies nausea Skin/Breast Denies rash Neuro Reports no additional complaints, Denies Abnormal speech present and Denies Sensory deficit (Neuro) Psych Reports no additional complaints Endo Reports no additional complaints Physical Exam Vital Signs: Last Vital Signs Pulse 88 08/08/25 10:01 BP 140/80 H 08/08/25 10:01 Pulse Ox 99 08/08/25 10:01 Oxygen Delivery Method Room Air 08/08/25 10:01 BMI result Body Mass Index 36.9 Const General: comfortable Orientation/consciousness: patient oriented x3 HEENT Ears: TM abnormal erythematous Neck Neck: Yes normal visual inspection, Yes full ROM and Yes no lymphadenopathy Chest Chest palpation & inspection: normal inspection of the chest Resp Effort & Inspection: normal respiratory effort Auscultation: diminished lung sounds Cardio Rate: regular rate Rhythm: regular rhythm Heart sounds: S1 normal heart sound present and S2 normal heart sound present GI Palpation (GI): Soft to palpation and nontender Auscultation: normal bowel sounds General: Yes no CVA tenderness Back/Spine/Pelvis Back: no CVA tenderness Skin General skin exam: rashes and/or lesions noted Neuro General: patient oriented x3 Speech: No Abnormal speech present Sensory Exam: No Sensory deficit (Neuro) Assessment & Plan Assessment & Plan (1) Asthma: Code(s): J45.909 - Unspecified asthma, uncomplicated Category: Medical Qualifiers: Asthma complication type: uncomplicated Asthma persistence: persistent Asthma severity: severe Qualified Code(s): J45.50 - Severe persistent asthma, uncomplicated (2) Chronic bronchitis: Code(s): J42 - Unspecified chronic bronchitis Category: Medical Qualifiers: Chronic bronchitis type: mucopurulent Qualified Code(s): J41.1 - Mucopurulent chronic bronchitis (3) Smoker: Code(s): F17.200 - Nicotine dependence, unspecified, uncomplicated Category: Social Hx (4) Pulmonary nodule: Comment: better Code(s): R91.1 - Solitary pulmonary nodule Category: Medical (5) 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 Category: Medical (6) Sinus infection: Code(s): J32.9 - Chronic sinusitis, unspecified Category: Medical Qualifiers: Chronicity: acute Recurrence: recurrent Sinusitis location: unspecified location Qualified Code(s): J01.91 - Acute recurrent sinusitis, unspecified Plan continue Azithromycin MWF, needs an EKG start Doxycycline Afrin x 5 days Medrol pk smoking cessation; start chantix conitnue symbicort FELISA as needed CXR barium swallow 09/2025 F/U 4-6 months Orders: Orders XR chest 2V Today J45.909 - Unspecified asthma, uncomplicated Medications: New varenicline tartrate (Chantix Starting Month Box) PO PER PKG DIR 53 ea 0RF methylprednisolone (Medrol (Sky)) PO PER PKG DIR 21 ea 0RF 6 days oxymetazoline 0.05% (Afrin (oxymetazoline)) 2 sprays intranasal Q12H PRN 22 mL 3RF nasal congestion 5 days doxycycline monohydrate 100 mg PO BID 28 tabs 0RF 14 days Coding Level of Care Code Est Pt Level 4 (07849) Diagnoses Severe persistent asthma without complication J45.50 Asthma complication type: uncomplicated Asthma persistence: persistent Asthma severity: severe Mucopurulent chronic bronchitis J41.1 Chronic bronchitis type: mucopurulent Smoker F17.200 Pulmonary nodule R91.1 Thymus hyperplasia E32.0 Acute recurrent sinusitis, unspecified location J01.91 Chronicity: acute Recurrence: recurrent Sinusitis location: unspecified location Time Spent (min) 17
== END 2025-08-08 10:34 | disposition home or self-care (01) ==
LOC: HO.HPS 09:59
PROVIDERS: PCP Internal Medicine; Visit Provider Hospitalist
DX: J45.50 Severe persistent asthma, uncomplicated (principal); J41.1 Mucopurulent chronic bronchitis; F17.200 Nicotine dependence, unspecified, uncomplicated; R91.1 Solitary pulmonary nodule; E32.0 Persistent hyperplasia of thymus; J01.91 Acute recurrent sinusitis, unspecified
CPT/HCPCS: 99214

== ENCOUNTER → 2025-08-08 09:58 | Outpatient (BNVA) | payer MEDICARE, MEDICAID, SELFPAY | PROVIDERS: PCP Internal Medicine; Visit Provider Hospitalist | DX: J45.40 Moderate persistent asthma, uncomplicated (principal); J41.1 Mucopurulent chronic bronchitis; F17.200 Nicotine dependence, unspecified, uncomplicated; R91.1 Solitary pulmonary nodule; E32.0 Persistent hyperplasia of thymus; J01.91 Acute recurrent sinusitis, unspecified | CPT/HCPCS: 99212 ==